=== PATIENT | male | born 1955 | race Caucasian/White ===

== ENCOUNTER 2016-03-03 07:54 | Inpatient (IN) | payer OTHER ==
[2016-03-03] MEDS ORDERED: ASPIRIN 81 MG CHEW PO STA (08:06)
[2016-03-03] MEDS ORDERED: NITROGLYCERIN SL TABS 0.4 MG TAB SUBLINGUAL STA ×3 (08:06)
[2016-03-03] MEDS ORDERED: HEPARIN SODIUM,PORCINE 5,000 UNIT/ML 1 ML VIAL IV STA (08:06)
[2016-03-03] MEDS ORDERED: SODIUM CHLORIDE 0.9% 1,000 ML IV STA (08:06)
[2016-03-03] MEDS ORDERED: LIDOCAINE 2% INJ 20 MG/ML (20 ML MDV) ONE (08:07)
--- NOTE | 2016-03-03 08:12 | ED ---
General Adult HPI - General Chief complaint: Chest Pain Stated complaint: chest pain, sob Time Seen by Provider: 03/03/16 08:00 Source: patient, RN notes reviewed Mode of arrival: ambulatory Limitations: no limitations - History of Present Illness Initial comments: Patient is a pleasant 61-year-old male presenting to the emergency department complaining of chest discomfort. Discomfort feels like pressure or ache. There is radiation to both of the shoulders. Onset of symptoms was just 30 minutes ago. Discomfort is severe however starting to improve, radiate/10. Patient does have some associated dyspnea. Patient was nauseated earlier. Patient felt sweaty earlier. No history of similar symptoms previously. No leg pain or swelling. No cough or fever. - Related Data Home Medications Medication Instructions Recorded Confirmed No Known Home Medications [No 03/03/16 03/03/16 Known Home Medications] Allergies Allergy/AdvReac Type Severity Reaction Status Date / Time No Known Allergies Allergy Verified 03/03/16 08:13 Review of Systems ROS Statement: Those systems with pertinent positive or pertinent negative responses have been documented in the HPI. ROS Other: All systems not noted in ROS Statement are negative. Constitutional: Denies: fever Eyes: Denies: eye pain ENT: Denies: ear pain Respiratory: Reports: dyspnea. Denies: cough Cardiovascular: Reports: chest pain Endocrine: Denies: fatigue Gastrointestinal: Reports: nausea. Denies: abdominal pain Genitourinary: Denies: dysuria Musculoskeletal: Denies: back pain Skin: Denies: rash Neurological: Denies: headache Past Medical History Past Medical History: No Reported History History of Any Multi-Drug Resistant Organisms: None Reported Past Surgical History: Orthopedic Surgery Additional Past Surgical History / Comment(s): left knee Past Psychological History: No Psychological Hx Reported Smoking Status: Current every day smoker Past Alcohol Use History: Daily Past Drug Use History: None Reported General Exam Limitations: no limitations General appearance: alert, in distress (Patient does appear uncomfortable) Head exam: Present: atraumatic, normocephalic Eye exam: Present: normal appearance, PERRL ENT exam: Present: normal oropharynx Neck exam: Present: normal inspection Respiratory exam: Present: normal lung sounds bilaterally. Absent: chest wall tenderness Cardiovascular Exam: Present: regular rate, normal rhythm Expanded Peripheral pulses: 2+: Radial (R), Radial (L), Posterior Tibialis (R), Posterior Tibialis (L) GI/Abdominal exam: Present: soft. Absent: tenderness Extremities exam: Present: normal inspection. Absent: pedal edema, calf tenderness Neurological exam: Present: alert Psychiatric exam: Present: normal affect, normal mood Skin exam: Absent: rash Course Vital Signs 03/03/16 08:00 Temperature 96.1 F L Pulse Rate 91 Respiratory 18 Rate Blood Pressure 152/94 - Reevaluation(s) Reevaluation #1: 03/03/16 08:09 Dr. Salmeron in the emergency department and taking patient to the [facility]. 03/03/16 08:12 STEMI alert was previously called. Case was earlier discussed with Dr. Sanders. Dr. Ziegler also paged for admission for hospital call. 03/03/16 08:25 Case was discussed with Dr. Silva, who will admit for hospital call. EKG Findings - EKG Comments: EKG Findings:: Normal sinus rhythm 98. Normal intervals. Normal axis. Normal QRS. ST elevation leads V2 through V6. Medical Decision Making - Lab Data Result diagrams: 03/03/16 08:04 Lab Results 03/03/16 Range/Units 08:04 WBC 11.2 H (3.8-10.6) k/uL RBC 4.74 (4.30-5.90) m/uL Hgb 15.2 (13.0-17.5) gm/dL Hct 44.5 (39.0-53.0) % MCV 93.9 (80.0-100.0) fL MCH 32.0 (25.0-35.0) pg MCHC 34.1 (31.0-37.0) g/dL RDW 12.4 (11.5-15.5) % Plt Count 350 (150-450) k/uL - Radiology Data Radiology results: image reviewed (Chest x-ray shows no acute process.) Disposition Clinical Impression: ST elevation myocardial infarction (STEMI) Disposition: [facility] Condition: Serious Referrals: None,Stated [Primary Care Provider] - 1-2 days
[2016-03-03] MEDS ORDERED: HEPARIN SODIUM,PORCINE 5,000 UNIT/ML 1 ML VIAL IV PRN (08:13)
[2016-03-03] MEDS ORDERED: NITROGLYCERIN SL TABS 0.4 MG TAB SUBLINGUAL PRN ×2 (08:13→09:03)
[2016-03-03] MEDS ORDERED: MIDAZOLAM 2 MG/2 ML VIAL ONE (08:14)
[2016-03-03 08:15] LABS: CH 32.5; CHCM 34.7; HCT 44.5 % (39.0-53.0); HDW 2.51; HGB 15.2 gm/dL (13.0-17.5); MCHC 34.1 g/dL (31.0-37.0); MCV 93.9 fL (80.0-100.0); Mean Platelet Volume 6.8; RBC 4.74 m/uL (4.30-5.90); RDW 12.4 % (11.5-15.5); WBC 11.2 k/uL (3.8-10.6)
[2016-03-03] MEDS ORDERED: IV FLUID CONTINUATION 1,000 ML IV ONE (08:15)
--- NOTE | 2016-03-03 08:22 | XR ---
EXAMINATION TYPE: XR chest 1V portable DATE OF EXAM: 03/03/2016 8:13 AM HISTORY: Chest pain. REFERENCE: NONE. FINDINGS: The lungs are clear. Pleural spaces are clear. Heart size is upper limits of normal. IMPRESSION: BORDERLINE CARDIOMEGALY.
[2016-03-03 08:24] LABS: ALT 35 U/L (21-72); AST 26 U/L (17-59); Alkaline Phosphatase 66 U/L (38-126); Anion Gap 13 mmol/L; Blood Urea Nitrogen 16 mg/dL (9-20); Calcium 9.9 mg/dL (8.4-10.2); Carbon Dioxide 23 mmol/L (22-30); Chloride 107 mmol/L (98-107); Glucose 152 mg/dL (74-99); Non-African American GFR(MDRD) >60 (>60 ml/min/1.73 sqM); Potassium 4.1 mmol/L (3.5-5.1); Sodium 143 mmol/L (137-145); Total Bilirubin 0.7 mg/dL (0.2-1.3); Total Protein 7.6 g/dL (6.3-8.2)
[2016-03-03] MEDS ORDERED: MIDAZOLAM 2 MG/2 ML VIAL IV ONE (08:25)
[2016-03-03] MEDS ORDERED: LIDOCAINE 2% INJ 20 MG/ML SQ ONE (08:26)
[2016-03-03] MEDS ORDERED: BIVALIRUDIN BOLUS 250 MG/50 ML IV ONE (08:31)
[2016-03-03] MEDS ORDERED: BIVALIRUDIN 250 MG in SODIUM CHLORIDE 0.9% 50 ML IV ONE (08:32)
[2016-03-03 08:34] LABS: Creatine Kinase <20 U/L (55-170)
[2016-03-03] MEDS ORDERED: SODIUM CHLORIDE 0.9% (PF) 10 ML VIAL ONE (08:37)
[2016-03-03] MEDS ORDERED: niCARdipine 25 MG/10 ML VIAL ONE (08:38)
[2016-03-03 08:39] LABS: Partial Thromboplastin Time 25.3 sec (22.0-30.0); Prothrombin Time 10.3 sec (9.0-12.0)
[2016-03-03] MEDS: NITROGLYCERIN 1000MCG/10ML SYRINGE INTRACORON ONE ×2 (08:42→08:49)
[2016-03-03] MEDS ORDERED: PRASUGREL 10 MG TAB ONE (08:45)
[2016-03-03 08:47] LABS: Creatine Kinase MB <0.2 ng/mL (0.0-2.4)
[2016-03-03] MEDS ORDERED: PRASUGREL 10 MG TAB PO ONE (08:48)
[2016-03-03] MEDS ORDERED: niCARdipine 25 MG/10 ML VIAL INTRACORON ONE (08:49)
[2016-03-03 08:50] LABS: Troponin I 0.044 ng/mL (0.000-0.034)
[2016-03-03] MEDS ORDERED: IOHEXOL 350 MG/ML 100 ML BOTTLE INJ ONE (09:02)
[2016-03-03] MEDS ORDERED: RX INFO: IV CONTRAST WAS GIVEN 1 EACH MISC MISCELLANE PRN (09:03)
[2016-03-03] MEDS ORDERED: MAG HYDROX/AL HYDROX/SIMETH 30 ML CUP PO PRN (09:03)
--- NOTE | 2016-03-03 09:03 | P.CRDCN ---
History of Present Illness Consult date: 03/03/16 History of present illness: This is a pleasant 61-year-old gentleman with no significant past medical history but significant history of smoking presented to the emergency room complaining of chest discomfort. He was in his usual state of health until this morning when he woke up complaining of pressure across the chest. It is associated with shortness of breath. The EKG showed sinus rhythm with ST segment elevation in the anterolateral leads. The patient is not aware of any prior history of CAD, diabetes, hypertension, or dyslipidemia. He has no major cardiovascular surgery before. He has significant history of smoking. He has no family history of coronary artery disease. The decision was made toward emergent heart catheterization with possible percutaneous coronary intervention. The procedure in details was explained to the patient with full understanding. Past Medical History Past Medical History: No Reported History History of Any Multi-Drug Resistant Organisms: None Reported Past Surgical History: Orthopedic Surgery Additional Past Surgical History / Comment(s): left knee Past Psychological History: No Psychological Hx Reported Smoking Status: Current every day smoker Past Alcohol Use History: Daily Past Drug Use History: None Reported Medications and Allergies Home Medications Medication Instructions Recorded Confirmed Type No Known Home Medications [No 03/03/16 03/03/16 History Known Home Medications] Allergies Allergy/AdvReac Type Severity Reaction Status Date / Time No Known Allergies Allergy Verified 03/03/16 08:13 Physical Exam Vitals: Vital Signs Temp Pulse Resp BP 03/03/16 08:00 96.1 F L 91 18 152/94 Intake and Output 03/02/16 03/03/16 03/03/16 22:59 06:59 14:59 Other: Weight 74.843 kg Patient Weight 03/04/16 06:59 Weight 74.843 kg - Constitutional General appearance: mild distress - Respiratory Respiratory: bilateral: CTA - Cardiovascular Rhythm: regular Heart sounds: normal: S1, S2 Results 03/03/16 08:04 03/03/16 08:04 CBC 03/03/16 Range/Units 08:04 WBC 11.2 H (3.8-10.6) k/uL RBC 4.74 (4.30-5.90) m/uL Hgb 15.2 (13.0-17.5) gm/dL Hct 44.5 (39.0-53.0) % Plt Count 350 (150-450) k/uL Current Medications Generic Name Dose Route Start Last Admin Trade Name Wyattq PRN Reason Stop Dose Admin Aspirin 325 mg 03/04/16 09:00 Aspirin PO DAILY [facility] Heparin Sodium (Porcine) 0 unit 03/03/16 08:13 Heparin IV Q6HR PRN Low PTT Protocol Sodium Chloride 1,000 mls @ 75 mls/hr 03/03/16 08:06 03/03/16 08:13 Saline 0.9% IV 03/03/16 21:25 75 mls/hr .[id number] STA Administration Heparin Sodium/Dextrose 25,000 500 mls @ 17.96 mls/hr 03/03/16 08:15 unit/ IV Solution IV .Q24H BINA Protocol 12 UNITS/KG/HR Nitroglycerin 1 inch 03/03/16 12:00 Nitro-Bid Oint TOPICAL Q6HR [facility] Nitroglycerin 0.4 mg 03/03/16 08:13 Nitrostat SUBLINGUAL Q5M PRN Chest Pain Intake and Output 03/02/16 03/03/16 03/03/16 22:59 06:59 14:59 Other: Weight 74.843 kg Patient Weight 03/04/16 06:59 Weight 74.843 kg 03/03/16 08:04 Assessment and Plan Plan: Assessment #[address] elevation myocardial infarction #2 significant history of smoking Plan #1 proceeding with emergent heart catheterization #2 follow-up with the patient
[2016-03-03] MEDS: LISINOPRIL 2.5 MG TAB PO SCH (09:43)
[2016-03-03] MEDS ORDERED: LISINOPRIL 2.5 MG TAB PO SCH (09:44)
--- NOTE | 2016-03-03 11:59 | ECHOF ---
Referral Reason:stemi MEASUREMENTS -------- HEIGHT: 172.7 cm WEIGHT: 74.8 kg BP: 152/94 IVSd: 0.8 cm (0.6 - 1.1) LVIDd: 5.0 cm (3.9 - 5.3) LVPWd: 0.9 cm (0.6 - 1.1) IVSs: 1.4 cm LVIDs: 3.8 cm LVPWs: 1.1 cm Ao Diam: 3.1 cm (2.0 - 3.7) AV Cusp: 1.9 cm (1.5 - 2.6) LA Diam: 3.6 cm (2.7 - 3.8) MV EXCURSION: 12.495 mm (> 18.000) MV EF SLOPE: 60 mm/s (70 - 150) EPSS: 1.1 cm MV E Chris: 0.57 m/s MV DecT: 233 ms MV A Chris: 0.98 m/s MV E/A Ratio: 0.58 RAP: 5.00 mmHg RVSP: 23.00 mmHg FINDINGS -------- Sinus rhythm. This was a technically adequate study. Left ventricular wall thickness is normal. Overall left ventricular systolic function is moderately impaired with, an EF between 35 - 40 %. Anterior is hypokinetic Septal Hypokinesis [place] Hypokinesis. The right ventricle is normal in size and function. The left atrium is normal in size. The right atrium is normal in size. The aortic valve is trileaflet, and appears structurally normal. No aortic stenosis or regurgitation. There is trace mitral regurgitation. Mild tricuspid regurgitation present. The right ventricular systolic pressure, as measured by Doppler, is 23.00mmHg. Pulmonic valve appears structurally normal. The aortic root size is normal. The pericardium is normal. CONCLUSIONS -------- 1. Sinus rhythm. 2. The right atrium is normal in size. 3. The aortic valve is trileaflet, and appears structurally normal. No aortic stenosis or regurgitation. 4. There is trace mitral regurgitation. 5. Mild tricuspid regurgitation present. 6. The right ventricular systolic pressure, as measured by Doppler, is 23.00mmHg. 7. Pulmonic valve appears structurally normal. 8. The aortic root size is normal. 9. The pericardium is normal. 10. This was a technically adequate study. 11. Left ventricular wall thickness is normal. 12. Overall left ventricular systolic function is moderately impaired with, an EF between 35 - 40 %. 13. Anterior is hypokinetic 14. Septal Hypokinesis 15. [place] Hypokinesis. 16. The right ventricle is normal in size and function. 17. The left atrium is normal in size. TRANSMISSION ASSEMBLER: Leilani Brush RDCS
[2016-03-03] MEDS ORDERED: NITROGLYCERIN OINT 1 INCH/GM PACKET TOPICAL SCH (12:00)
[2016-03-03 13:21] LABS: Glucose,Whole Blood 109 mg/dL (75-99)
[2016-03-03] MEDS: HEPARIN SODIUM,PORCINE/D5W PMX 25,000 UNIT in DEXTROSE/WATER 1 500ML.BAG IV SCH (13:37)
[2016-03-03 15:39] LABS: Creatine Kinase <20 U/L (55-170)
[2016-03-03 15:51] LABS: Creatine Kinase MB 0.6 ng/mL (0.0-2.4)
[2016-03-03] MEDS: NITROGLYCERIN OINT 1 INCH/GM PACKET TOPICAL SCH ×3 (17:03→23:17)
[2016-03-03] MEDS: ATORVASTATIN 80 MG TAB PO SCH (20:18)
[2016-03-03] MEDS: METOPROLOL TARTRATE 12.5 MG TAB PO SCH (20:19)
[2016-03-03 21:41] LABS: Creatine Kinase <20 U/L (55-170)
[2016-03-03 21:54] LABS: Creatine Kinase MB <0.2 ng/mL (0.0-2.4)
[2016-03-04] MEDS: NITROGLYCERIN OINT 1 INCH/GM PACKET TOPICAL SCH (05:01)
[2016-03-04 05:22] LABS: Basophils # (A) 0.1 k/uL (0-0.2); Basophils % (A) 1 %; CH 32.5; CHCM 35.1; Eosinophils # (A) 0.1 k/uL (0-0.7); Eosinophils % (A) 2 %; HCT 42.5 % (39.0-53.0); HDW 2.51; HGB 14.1 gm/dL (13.0-17.5); Luc # (Auto) 0.14; Luc % (Auto) 2; Lymphocytes # (A) 1.7 k/uL (1.0-4.8); Lymphocytes % (A) 20 %; MCHC 33.3 g/dL (31.0-37.0); MCV 93.1 fL (80.0-100.0); Mean Platelet Volume 7.4; Monocytes # (A) 0.8 k/uL (0-1.0); Monocytes % (A) 10 %; Neutrophils # (A) 5.7 k/uL (1.3-7.7); Neutrophils % (A) 67 %; RBC 4.57 m/uL (4.30-5.90); RDW 12.4 % (11.5-15.5); WBC 8.6 k/uL (3.8-10.6); WBC (Perox) 9.06
[2016-03-04 05:30] LABS: Anion Gap 10 mmol/L; Blood Urea Nitrogen 12 mg/dL (9-20); Calcium 9.2 mg/dL (8.4-10.2); Carbon Dioxide 20 mmol/L (22-30); Chloride 108 mmol/L (98-107); Cholesterol 215 mg/dL (<200); Glucose 114 mg/dL (74-99); HDL Cholesterol 45 mg/dL (40-60); Magnesium 1.9 mg/dL (1.6-2.3); Non-African American GFR(MDRD) >60 (>60 ml/min/1.73 sqM); Phosphorous 3.6 mg/dL (2.5-4.5); Potassium 4.3 mmol/L (3.5-5.1); Sodium 138 mmol/L (137-145); Triglycerides 114 mg/dL (<150)
[2016-03-04] MEDS: HEPARIN SODIUM,PORCINE/D5W PMX 25,000 UNIT in DEXTROSE/WATER 1 500ML.BAG IV SCH (08:15)
[2016-03-04] MEDS: ASPIRIN 325 MG TAB PO SCH (08:16)
[2016-03-04] MEDS: PRASUGREL 10 MG TAB PO SCH (08:16)
[2016-03-04] MEDS: LISINOPRIL 2.5 MG TAB PO SCH (08:16)
[2016-03-04] MEDS: METOPROLOL TARTRATE 12.5 MG TAB PO SCH (08:16)
[2016-03-04] MEDS ORDERED: LISINOPRIL 2.5 MG TAB PO SCH (09:00)
[2016-03-04] MEDS ORDERED: ASPIRIN 325 MG TAB PO SCH (09:00)
--- NOTE | 2016-03-04 10:35 | CC ---
DATE OF SERVICE: 03/03/2016 PERFORMING PHYSICIAN: Sandeep Salmeron MD, hand packager. PROCEDURE PERFORMED: 1. Selective right and left coronary angiogram. 2. Successful stenting of the proximal left anterior descending artery using 4.0 x 23 mm Xience SUEDEP with a good angiographic result. INDICATION: This is a pleasant 61-year-old gentleman with no significant past medical history but significant history of smoking who presented to the emergency room complaining of chest discomfort and the EKG showed sinus rhythm with acute anterolateral ST segment elevation. The decision was made toward emergent heart catheterization. APPROACH: Right common femoral artery. COMPLICATIONS: None. LEVEL OF SEDATION: Moderate. PROCEDURE DESCRIPTION: After obtaining an informed consent, the patient was brought to the cardiac mushroom laborer emergently. Right common femoral artery was cannulated using micropuncture technique. The micropuncture wire passed easily, then I placed 6-[place] sheath in the right common femoral artery. Subsequently, I did selective right and left coronary angiogram using JR4 and JL4 catheters. After that, I did intervene on left anterior descending artery. Please see a separate paragraph for that. SELECTIVE CORONARY ANGIOGRAM: 1. Left main is a large-caliber vessel. It is angiographically normal. It bifurcates into the left circumflex and left anterior descending artery. 2. The left circumflex is a large-caliber vessel and it is a nondominant vessel. The proximal left circumflex is angiographically normal and gives rise to the first and second OM branches and both appeared to be angiographically normal. The mid left circumflex has mild disease only. The left circumflex distally appeared to be angiographically normal. 3. The left anterior descending artery, the proximal left anterior descending artery appeared to have severe lesion seems to be in the range of 90% with plaque rupture and thrombus formation. The LAD in the proximal portion gives rise into the first diagonal branch, which appeared to be angiographically normally. The mid LAD is angiographically normal and the LAD distally is angiographically normal. 4. The right coronary artery is a large-caliber vessel and it is a dominant vessel. The proximal right coronary artery appeared to be angiographically normally be. The mid RCA appeared to have mild disease only. The RCA distally appeared to have haziness, which likely represents thrombus formation. The RCA distally bifurcates into PDA and PLV branches; both are angiographically normal. PCI OF THE LAD: Anticoagulation was initiated using Angiomax. Subsequently, I took a run-through wire and the LAD was wired. After that, I did multiple runs of aspiration thrombectomy from the LAD. Subsequently, I did PTCA ballooning of the LAD using ( ) x 12 mm balloon. Then I did deploy 4.0 x 23 mm Xience SUDEEP, where the stent was positioned under fluoroscopy guidance, then it was deployed under its nominal pressure for 30 seconds. The following angiogram showed excellent angiographic results without complication. CONCLUSION: 1. Acute anterolateral ST segment elevation myocardial infarction. 2. Critical disease involving the proximal left anterior descending artery with a plaque rupture and thrombus formation. 3. Successful stenting of the proximal left anterior descending artery using 4.0 x 23 mm Xience SUDEEP with a good angiographic result. 4. Haziness involving the distal right coronary artery without any discrete lesion and with JALEEL-3 flow in the right coronary artery. Possible thrombus present there. Postprocedure management will be: 1. Dual antiplatelet therapy. 2. Risk factor modification. 3. Follow up with the patient.
[2016-03-04] MEDS ORDERED: METOPROLOL SUCCINATE (ER) 50 MG TAB.ER.24H PO SCH (15:00)
--- NOTE | 2016-03-04 18:29 | PN ---
Mr. Perdomo is doing well from cardiac standpoint. He is pacing in his room. He has no dizziness, lightheadedness. No chest discomfort. He was admitted with an acute AL and his left ventricular ejection fraction was 35% to 40%. No nonsustained ventricular tachycardia, noted. His vitals are stable. He is pain free. No shortness of breath. No breathing trouble. Temperature is 97.2 degrees Fahrenheit, ( ) respirations 18, blood pressure is 109/68 mm of mercury. IMPRESSION: 1. Anterior wall myocardial infarction. 2. History of smoking. 3. Status post coronary stenting. PLAN: Switch to long-acting metoprolol, continue statins, continue Effient, continue aspirin. Continue atorvastatin and reduce to ( ) 2.5 mg daily and add Spironolactone.
[2016-03-04] MEDS ORDERED: TEMAZEPAM 15 MG CAP PO PRN (18:38)
[2016-03-04] MEDS ORDERED: ALPRAZolam 0.25 MG TAB PO PRN (18:38)
[2016-03-04] MEDS ORDERED: HYDROcodone/APAP 5-325MG 1 EACH TAB PO PRN (18:38)
[2016-03-04] MEDS: SPIRONOLACTONE 25 MG TAB PO SCH (18:48)
[2016-03-04] MEDS: NICOTINE 14MG/24HR PATCH TRANSDERM SCH (18:50)
[2016-03-04] MEDS: ATORVASTATIN 80 MG TAB PO SCH (21:51)
[2016-03-05 05:31] LABS: Basophils % (A) 1 %; CH 32.4; CHCM 34.6; Eosinophils # (A) 0.2 k/uL (0-0.7); Eosinophils % (A) 3 %; HCT 43.1 % (39.0-53.0); HDW 2.45; HGB 14.3 gm/dL (13.0-17.5); Luc # (Auto) 0.17; Luc % (Auto) 2; Lymphocytes # (A) 1.9 k/uL (1.0-4.8); Lymphocytes % (A) 24 %; MCH 31.2 pg (25.0-35.0); MCHC 33.3 g/dL (31.0-37.0); MCV 93.9 fL (80.0-100.0); Mean Platelet Volume 6.9; Monocytes # (A) 0.6 k/uL (0-1.0); Monocytes % (A) 8 %; Neutrophils # (A) 4.8 k/uL (1.3-7.7); Neutrophils % (A) 62 %; RBC 4.59 m/uL (4.30-5.90); RDW 12.4 % (11.5-15.5); WBC 7.7 k/uL (3.8-10.6); WBC (Perox) 7.91
[2016-03-05 05:38] LABS: Anion Gap 8 mmol/L; Blood Urea Nitrogen 16 mg/dL (9-20); Calcium 9.3 mg/dL (8.4-10.2); Carbon Dioxide 23 mmol/L (22-30); Chloride 109 mmol/L (98-107); Glucose 105 mg/dL (74-99); Non-African American GFR(MDRD) >60 (>60 ml/min/1.73 sqM); Potassium 4.3 mmol/L (3.5-5.1); Sodium 140 mmol/L (137-145)
[2016-03-05] MEDS: NICOTINE 14MG/24HR PATCH TRANSDERM SCH (09:15)
[2016-03-05] MEDS: PANTOPRAZOLE 40 MG TABLET PO SCH (09:16)
[2016-03-05] MEDS: ASPIRIN 325 MG TAB PO SCH (09:16)
[2016-03-05] MEDS: SPIRONOLACTONE 25 MG TAB PO SCH (09:17)
[2016-03-05] MEDS: LISINOPRIL 2.5 MG TAB PO SCH (09:17)
[2016-03-05] MEDS: PRASUGREL 10 MG TAB PO SCH (09:17)
[2016-03-05] MEDS: METOPROLOL SUCCINATE (ER) 25 MG TAB.ER.24H PO SCH (09:17)
--- NOTE | 2016-03-05 11:02 | HP ---
DATE OF ADMISSION: CHIEF COMPLAINT: Chest pain. HISTORY OF PRESENT ILLNESS: This 61-year-old gentleman with a past medical history of multiple medical issues including orthopedic surgery, tonsillectomy previously, remotely followed by Dr. Bolton in the outpatient setting, was admitted with sudden onset of severe anterior and left-sided chest pain to [facility]. The pain is radiating to both shoulders. The pain is 10 out of 10 in intensity. The patient is complaining of some associated shortness of breath. The patient felt earlier. Patient came to [facility] and found to have acute ST segment elevation anterior myocardial infarction. The patient underwent a cardiac catheterization by Dr. Salmeron. Cardiac catheterization showed critical disease involving the proximal left anterior descending with plaque rupture and thrombus formation and sepsis with stenting of the proximal left anterior descending using Xience drug-eluting stent with good angiographic results noted. Antiplatelet treatment was instituted. 2-D echo with Doppler was done, which showed ejection fraction of about 30 to 40% with wall hypokinesis indicating diminished ejection fraction also. There is no history of any fever, rigors. No history of headache, loss of consciousness or seizures. PAST MEDICAL HISTORY: History of degenerative joint disease, history of tonsillectomy. MEDICATIONS PRIOR TO ADMISSION: None. ALLERGIES: None. FAMILY HISTORY: History of renal failure in the family, in dad. SOCIAL HISTORY: History of smoking, occasional alcohol intake. REVIEW OF SYSTEMS: ENT: No dimension hearing or vision. CARDIOVASCULAR: As mentioned earlier. RESPIRATORY: As mentioned earlier. GI: No nausea. : No dysuria. NERVOUS SYSTEM: No numbness or weakness. ALLERGY/IMMUNOLOGY: No asthma. MUSCULOSKELETAL: As mentioned earlier. RHEUMATOLOGY: Negative. PSYCHIATRY: Negative. ENDOCRINE: No history of diabetes or hypothyroidism. CONSTITUTIONAL: As mentioned earlier. NEUROLOGY: Negative. PHYSICAL EXAMINATION: Patient is alert and oriented x3. Pulse is 98, blood pressure 109/68, respiration 18, temperature 97.2, pulse ox 98% on room air. HEENT: Conjunctivae normal. NECK: No jugular venous distention. CARDIOVASCULAR: S1 and S2, muffled. No S3, no S4. RESPIRATORY: Breath sounds diminished at the bases. No rhonchi, no crackles. ABDOMEN: Soft, nontender. No mass palpable. No organomegaly. No ascites. LEGS: No edema, no swelling. NERVOUS SYSTEM: Higher function as mentioned. Moves all four limbs. No focal motor deficits. LYMPHATIC: No lymphadenopathy in the neck, axillae or groin. SKIN: No ulcer, rash or bleeding. LABS: WBC 11.2, glucose 152, troponin 5.810. Cholesterol 215 and LDL is 147. ASSESSMENT: 1. Chest pain with acute ST segment elevation anterior wall myocardial infarction with critical stenosis of left anterior descending, status post stent placement. 2. Troponin 5.810. 3. History of nicotine dependence. 4. Hyperlipidemia. 5. Increased random blood sugar. 6. Increased WBC, possibly reactive. 7. History of degenerative joint disease. 8. FULL CODE. 9. Congestive heart failure with acute systolic dysfunction, ejection fraction 35 to 40% with multiple wall hypokinesis in the 2-D echo. RECOMMENDATIONS AND DISCUSSION: In this 61-year-old gentleman who presented with multiple complex medical issues, we will monitor the patient closely. Continue the current medications, continue symptomatic treatment. Otherwise I recommend dual antiplatelet treatment along with Cardiology, atorvastatin. Otherwise postop PTCA protocol. Repeat labs. Aldactone also has been recommended. Continue to monitor. Guarded prognosis because of multiple complex medical issues. Further recommendations to follow. MTDD
--- NOTE | 2016-03-05 18:13 | P.PN ---
Subjective Patient is doing well from a cardiac standpoint. He denies any chest discomfort , no undue shortness of breath no dizziness lightheadedness Review of systems: No fever chills or rigors, no cough, phlegm or expectoration , no nausea, vomiting or diarrhea, no hematuria, dysuria, no musculoskeletal complaints, no strokes or seizures, no skin lesions. On examination Afebrile 97.7, pulse rate in the 60s, respirations normal, blood pressure 109/ 77 mmHg And neck examination is normal No JVD thyromegaly or carotid bruits Heart sounds some stool normal No murmurs or gallops no rub Breath sounds are normal and equal No rhonchi no crackles Abdomen soft nontender Extremities warm no edema Impression Acute ST elevation [place], anterolateral History of smoking Gap to ejection fraction 35-40% Anterior septal and apical hypokinesis Ischemic cardio myopathy Suggest Spironolactone 25 mg daily Aspirin and Effient Continue atorvastatin Lisinopril Metoprolol maximized today to 75 mg a day. I will try to increase to 100 mg daily This gentleman has moderately severe ischemic cardio myopathy If his LV function does not improve in the next 3 months he should undergo risk stratification for sudden cardiac Follow-up 24-hour Holter monitor to look for any nonsustained ventricular tachycardia Follow-up 2-D echo in the future Objective - Vital Signs Vital signs: Vital Signs Temp 97.7 F 03/05/16 16:00 Pulse 62 03/05/16 16:00 Resp 15 03/05/16 16:00 BP 109/77 03/05/16 16:00 Pulse Ox 98 03/05/16 16:00 Intake & Output 03/04/16 03/05/16 03/05/16 18:59 06:59 18:59 Intake Total 720 720 Output Total 0 0 Balance 720 720 Weight 72 kg 72 kg Intake: IV 0 Sodium Chloride 0.9% 1, 0 000 ml @ 75 mls/hr IV . [id number] STA Rx#:[id number] Oral 720 720 Output: Urine 0 0 Other: Voiding Method Toilet Toilet Toilet Urinal Urinal Urinal # Voids 2 2 2 - Labs CBC & Chem 7: 03/05/16 04:56 03/05/16 04:56 Labs: Abnormal Lab Results - Last 24 Hours (Table) 03/05/16 Range/Units 04:56 Chloride 109 H (98-107) mmol/L Glucose 105 H (74-99) mg/dL
--- NOTE | 2016-03-05 19:05 | PN ---
DATE OF SERVICE: 03/05/2016 This 61-year-old gentleman who was admitted with chest pain, acute ST segment elevation myocardial infarction being closely monitored at this time. The patient has reduced ejection fraction indicating wall motion abnormalities. Cardiology is following the patient closely. The patient is on beta blockers, ARMANDO inhibitors and dual antiplatelet treatment also. No chest pain. No palpitation. No fever. Able to ambulate. On exam, with alert and oriented x3. Pulse 71, blood pressure 140/80, respirations 15, temperature 97.7, pulse ox 98% on room air. HEENT: Conjunctivae normal. Oral mucosa moist. NECK: No jugular venous distention. No carotid bruits. No lymph node enlargement. CARDIOVASCULAR: S1 and S2, muffled. No S3, no S4. RESPIRATORY: Breath sounds diminished at the bases. No rhonchi, no crackles. ABDOMEN: Soft, nontender, no mass palpable. LEGS: No edema. NERVOUS SYSTEM: No focal deficits. LABS: CBC within normal limits. Glucose 105. Troponin is not 147. ASSESSMENT: 1. Chest pain with acute ST segment elevation anterior wall myocardial infarction with critical stenosis of the left anterior descending, status post stenting. 2. Troponin 5.810. 3. History of nicotine dependence. 4. Hyperlipidemia. 5. Increased random blood sugar. 6. Increased WBC, possibly reactive. 7. History of degenerative joint disease. 8. History of congestive heart failure with acute systolic dysfunction, ejection fraction 30 to 40% with multiple wall hypokinesis in the 2-D echo. 9. FULL CODE. RECOMMENDATIONS AND DISCUSSION: In this 61-year-old gentleman who presented with multiple complex medical issues, we will monitor the patient closely. Continue the current medications and symptomatic treatment. Will continue with dual antiplatelet treatment. Continue with Lipitor. Monitor fluid and electrolyte balance closely. Further recommendations to follow. MTDD
[2016-03-05] MEDS: ATORVASTATIN 80 MG TAB PO SCH (22:08)
[2016-03-06 05:09] LABS: Basophils # (A) 0.1 k/uL (0-0.2); Basophils % (A) 1 %; CH 32.4; CHCM 34.9; Eosinophils # (A) 0.2 k/uL (0-0.7); Eosinophils % (A) 3 %; HCT 43.6 % (39.0-53.0); HDW 2.49; HGB 14.5 gm/dL (13.0-17.5); Luc # (Auto) 0.13; Luc % (Auto) 2; Lymphocytes # (A) 2.2 k/uL (1.0-4.8); Lymphocytes % (A) 27 %; MCH 30.9 pg (25.0-35.0); MCHC 33.1 g/dL (31.0-37.0); MCV 93.3 fL (80.0-100.0); Mean Platelet Volume 7.4; Monocytes # (A) 0.8 k/uL (0-1.0); Monocytes % (A) 9 %; Neutrophils # (A) 4.8 k/uL (1.3-7.7); Neutrophils % (A) 59 %; RBC 4.68 m/uL (4.30-5.90); RDW 12.2 % (11.5-15.5); WBC 8.2 k/uL (3.8-10.6); WBC (Perox) 8.06
[2016-03-06 05:19] LABS: Anion Gap 12 mmol/L; Blood Urea Nitrogen 16 mg/dL (9-20); Calcium 9.6 mg/dL (8.4-10.2); Carbon Dioxide 21 mmol/L (22-30); Chloride 108 mmol/L (98-107); Glucose 106 mg/dL (74-99); Non-African American GFR(MDRD) >60 (>60 ml/min/1.73 sqM); Potassium 4.4 mmol/L (3.5-5.1); Sodium 141 mmol/L (137-145)
[2016-03-06 05:55] LABS: Magnesium 1.9 mg/dL (1.6-2.3); Phosphorous 4.1 mg/dL (2.5-4.5)
[2016-03-06] MEDS: LISINOPRIL 2.5 MG TAB PO SCH (09:09)
[2016-03-06] MEDS: ASPIRIN 325 MG TAB PO SCH (09:09)
[2016-03-06] MEDS: PRASUGREL 10 MG TAB PO SCH (09:09)
[2016-03-06] MEDS: SPIRONOLACTONE 25 MG TAB PO SCH (09:10)
[2016-03-06] MEDS: PANTOPRAZOLE 40 MG TABLET PO SCH (09:11)
[2016-03-06] MEDS: METOPROLOL SUCCINATE (ER) 25 MG TAB.ER.24H PO SCH (09:12)
[2016-03-06 09:14] VITALS: BP 133/83; PULSE 83; RESP 16; TEMP 97.3
[2016-03-06] MEDS: NICOTINE 14MG/24HR PATCH TRANSDERM SCH (09:15)
[2016-03-06] MEDS: MAGNESIUM SULFATE-D5W PMX 1 GM in DEXTROSE/WATER 1 100ML.BAG IVPB SCH ×2 (09:24→09:25)
--- NOTE | 2016-03-06 09:45 | PN ---
Mr. Perdomo is doing well. He has been stable. He has no palpitations. No chest pain. No breathing trouble. He is ambulating in his room. On examination, he is afebrile, 97.3. His blood pressure is 133/83 mmHg. Respirations are 16. Head and neck examination is normal. Heart sounds are normal. No murmurs, no gallops. LUNGS: Clear on auscultation. EXTREMITIES: Heart sounds are normal. Breath sounds are normal. No murmurs, no gallops. No rhonchi. Abdomen is soft, nontender. EXTREMITIES: Warm. No edema. IMPRESSION: 1. Anterior wall myocardial infarction, status post drug eluting stenting to the LAD with an excellent result. 2. Ischemic cardiomyopathy left ventricular ejection fraction of 35% to 40% by 2-D echo. No clinical heart failure symptoms at this time. SUGGEST: Patient may go home today. His home medications include: 1. Aspirin 325 mg daily. 2. Atorvastatin 80 mg q.h.s. 3. Lisinopril 2.5 mg p.o. daily. 4. Metoprolol succinate 100 mg daily. 5. Effient 10 mg p.o. daily. 6. Spironolactone. He will see Dr. Salmeron within 5 to 7 days.
--- NOTE | 2016-03-07 11:03 | DS ---
DATE OF ADMISSION: 03/03/2016 DATE OF DISCHARGE: 03/06/2016 DATE OF SERVICE: 03/06/2016 FINAL DIAGNOSES: 1. Chest pain with acute ST segment elevation anterior wall myocardial infarction with critical stenosis of the left anterior descending artery, status post stenting. 2. Troponin 5.810. 3. History of nicotine dependence. 4. Hyperlipidemia. 5. Increased random blood sugar. 6. Increased WBC, possible reactive. 7. History of degenerative joint disease. 8. History of congestive heart failure with acute systolic dysfunction, ejection fraction 35% to 40%, with multiple wall hypokinesis on 2-D echo. 9. FULL CODE. DISCHARGE DISPOSITION: The patient will be discharged in a stable condition with guarded prognosis. Cardiology cleared the patient for discharge. HISTORY OF PRESENT ILLNESS: This 61-year-old gentleman who was admitted with chest pain with features of acute ST-segment elevation myocardial infarction . Patient underwent cardiac catheterization which showed critical LAD stenosis, stenting was done. Patient improved significantly. Ejection fraction found with 35% to 40%. ( ) Cardiology saw the patient. On exam, vitals are stable. CARDIOVASCULAR SYSTEM: S1, S2 muffled. ABDOMEN: Soft. NERVOUS SYSTEM: No focal deficits. DISCHARGE ADVICE: 1. Diet is cardiac. 2. Activity limited until followup. 3. Follow up with Dr. Bolton in 2 to 3 days. 4. Follow up with Dr. Salmeron in one week. MEDICATIONS: 1. Ecotrin 325 mg daily. 2. Lipitor 80 mg q.h.s. 3. Zestril 2.5 mg daily. 4. Toprol XL 75 mg p.o. daily. 5. Nitrostat 0.4 sublingual p.r.n. 6. Effient 10 mg p.o. daily. 7. Aldactone 25 mg p.o. daily. Once again, the patient will be discharged in stable condition with guarded prognosis.
== END 2016-03-06 12:00 | disposition home or self-care (01) | DRG 246 ==
LOC: EC 07:54 → 6ICU 08:52
PROVIDERS: ADMIT Internal Medicine Interventional Cardiology; ATTEND Internal Medicine Interventional Cardiology
PROC: 02C03ZZ Extirpation of Matter from Coronary Artery, One Artery, Percutaneous Approach (ICD-10-PCS; principal; 2016-03-04)
PROC: B2111ZZ Fluoroscopy of Multiple Coronary Arteries using Low Osmolar Contrast (ICD-10-PCS; principal; 2016-03-04)
PROC: 4A023N7 Measurement of Cardiac Sampling and Pressure, Left Heart, Percutaneous Approach (ICD-10-PCS; principal; 2016-03-04)
PROC: 027034Z Dilation of Coronary Artery, One Artery with Drug-eluting Intraluminal Device, Percutaneous Approach (ICD-10-PCS; principal; 2016-03-04)
DX: I21.09 ST elevation (STEMI) myocardial infarction involving other coronary artery of anterior wall (principal); I50.21 Acute systolic (congestive) heart failure; E78.5 Hyperlipidemia, unspecified; F17.200 Nicotine dependence, unspecified, uncomplicated; I25.10 Atherosclerotic heart disease of native coronary artery without angina pectoris; I25.5 Ischemic cardiomyopathy; M19.90 Unspecified osteoarthritis, unspecified site; Z79.82 Long term (current) use of aspirin; Z95.5 Presence of coronary angioplasty implant and graft; Z79.899 Other long term (current) drug therapy
CPT/HCPCS: 36415; 71010; 80048; 80053; 80061; 82550; 82553; 83735; 84100; 84484; 85025; 85027; 85610; 85730; 93005; 93306; 93454; 96374; 99285

== ENCOUNTER → 2016-08-14 | Outpatient (CLI) | payer OTHER ==
[2016-08-14 13:19] LABS: CH 32.6; CHCM 35.2; HCT 42.5 % (39.0-53.0); HDW 2.48; HGB 14.5 gm/dL (13.0-17.5); MCH 31.8 pg (25.0-35.0); MCHC 34.2 g/dL (31.0-37.0); MCV 92.9 fL (80.0-100.0); Mean Platelet Volume 6.3; RBC 4.58 m/uL (4.30-5.90); RDW 12.4 % (11.5-15.5); WBC 8.4 k/uL (3.8-10.6)
[2016-08-14 13:31] LABS: Anion Gap 15 mmol/L; Blood Urea Nitrogen 15 mg/dL (9-20); Calcium 9.8 mg/dL (8.4-10.2); Carbon Dioxide 22 mmol/L (22-30); Chloride 106 mmol/L (98-107); Glucose 160 mg/dL (74-99); Non-African American GFR(MDRD) >60 (>60 ml/min/1.73 sqM); Potassium 4.6 mmol/L (3.5-5.1); Sodium 143 mmol/L (137-145)
== END | disposition home or self-care (01) ==
LOC: LABWHC1 12:58
PROVIDERS: ATTEND Internal Medicine Interventional Cardiology
DX: N18.9 Chronic kidney disease, unspecified (principal); D64.9 Anemia, unspecified
CPT/HCPCS: 36415; 80048; 85027

== ENCOUNTER → 2017-07-16 | Outpatient (CLI) | payer OTHER ==
[2017-07-16 10:12] LABS: ALT 51 U/L (21-72); AST 40 U/L (17-59); Cholesterol 162 mg/dL (<200); HDL Cholesterol 57 mg/dL (40-60); LDL Cholesterol,Calculated 89 mg/dL (0-99); Triglycerides 82 mg/dL (<150)
== END | disposition home or self-care (01) ==
LOC: LABWHC1 09:27
PROVIDERS: ATTEND Internal Medicine Interventional Cardiology
DX: E78.2 Mixed hyperlipidemia (principal)
CPT/HCPCS: 36415; 80061; 84450; 84460

== ENCOUNTER → 2018-03-08 | Outpatient (CLI) | payer OTHER ==
[2018-03-08 18:39] LABS: LDL Cholesterol,Calculated 77.6 mg/dL (0.0-131.0); VLDL Calculation 31.4 mg/dL (5.00-40.00)
== END | disposition home or self-care (01) ==
LOC: LABWHC1 08:08
PROVIDERS: ATTEND Internal Medicine Interventional Cardiology
DX: E78.2 Mixed hyperlipidemia (principal)
CPT/HCPCS: 36415; 80061; 84450; 84460

== ENCOUNTER 2018-05-31 09:25 | Observation (INO) | payer OTHER ==
[2018-05-31] MEDS ORDERED: SODIUM CHLORIDE 0.9% 1,000 ML IV STA (09:37)
[2018-05-31] MEDS ORDERED: ASPIRIN 81 MG PO STA (09:37)
[2018-05-31] MEDS ORDERED: MORPHINE SULFATE 4 MG/ML SYRINGE IV STA (09:37)
[2018-05-31] MEDS ORDERED: NITROGLYCERIN OINT 1 INCH/GM PACKET TOPICAL STA (09:37)
--- NOTE | 2018-05-31 09:40 | ED ---
General Adult HPI - General Stated complaint: chest pain Time Seen by Provider: 05/31/18 09:29 Source: patient, RN notes reviewed Limitations: no limitations - History of Present Illness Initial comments: Patient is a pleasant 63-year-old male presenting to the emergency Department with chest discomfort. Patient states he was doing light exertion with onset of symptoms. Discomfort is currently rated 7/10. Patient states discomfort feels like pressure and tightness in the left anterior chest. No radiation. There is some mild dyspnea. No nausea or diaphoresis. Patient did have similar symptoms 2 years ago associated with heart attack and stent placement. Patient states symptoms are somewhat worse this time. Patient did take nitroglycerin at home without any improvement of symptoms. - Related Data Home Medications Medication Instructions Recorded Confirmed Metoprolol Succinate [Toprol Xl] 50 mg PO DAILY 05/31/18 05/31/18 Previous Rx's Medication Instructions Recorded Aspirin 325 mg PO DAILY #30 tab 03/06/16 Atorvastatin [Lipitor] 80 mg PO HS #30 tab 03/06/16 Lisinopril [Zestril] 2.5 mg PO DAILY #30 tab 03/06/16 Nitroglycerin Sl Tabs [Nitrostat] 0.4 mg SUBLINGUAL Q5M PRN #20 tab 03/06/16 Allergies Allergy/AdvReac Type Severity Reaction Status Date / Time No Known Allergies Allergy Verified 05/31/18 09:52 Review of Systems ROS Statement: Those systems with pertinent positive or pertinent negative responses have been documented in the HPI. ROS Other: All systems not noted in ROS Statement are negative. Constitutional: Denies: fever Eyes: Denies: eye pain ENT: Denies: ear pain Respiratory: Denies: cough Cardiovascular: Reports: chest pain Endocrine: Denies: fatigue Gastrointestinal: Denies: abdominal pain Genitourinary: Denies: dysuria Musculoskeletal: Denies: back pain Skin: Denies: rash Neurological: Denies: weakness Past Medical History Past Medical History: Coronary Artery Disease (CAD) Additional Past Medical History / Comment(s): Pt does not go to the doctors. History of Any Multi-Drug Resistant Organisms: None Reported Past Surgical History: Heart Catheterization With Stent, Orthopedic Surgery, Tonsillectomy Additional Past Surgical History / Comment(s): left knee surgery Past Anesthesia/Blood Transfusion Reactions: No Reported Reaction Smoking Status: Current every day smoker - Past Family History Father Family Medical History: Renal Disease Additional Family Medical History / Comment(s): Father of renal failure at the age of 92. Mother Family Medical History: Cancer Additional Family Medical History / Comment(s): Mother in her 60's from some form of cancer that ended up in her lymph nodes. General Exam Limitations: no limitations General appearance: alert Head exam: Present: atraumatic Eye exam: Present: normal appearance, PERRL ENT exam: Present: normal oropharynx Neck exam: Present: normal inspection Respiratory exam: Present: normal lung sounds bilaterally. Absent: chest wall tenderness Cardiovascular Exam: Present: regular rate, normal rhythm Expanded Peripheral pulses: 2+: Radial (R), Radial (L), Posterior Tibialis (R), Posterior Tibialis (L), Dorsalis Pedis (R), Dorsalis Pedis (L) GI/Abdominal exam: Present: soft. Absent: tenderness Extremities exam: Present: normal inspection. 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 RI 154. QRS 1:30. QT 402. QTC 424. Normal axis. Right bundle branch block. No acute ST change. Medical Decision Making - Medical Decision Making Patient reevaluated and somewhat improved following morphine. Patient appears more comfortable in bed. Patient and family updated on results and plan. Dr. Bolton has been paged for admission. Patient has PVC seen Dr. Salmeron and he will placed on consult. - Lab Data Result diagrams: 05/31/18 09:34 05/31/18 09:34 Lab Results 05/31/18 05/31/18 05/31/18 Range/Units 09:34 09:34 09:34 WBC 8.4 (3.8-10.6) k/uL RBC 4.76 (4.30-5.90) m/uL Hgb 14.8 (13.0-17.5) gm/dL Hct 43.9 (39.0-53.0) % MCV 92.2 (80.0-100.0) fL MCH 31.1 (25.0-35.0) pg MCHC 33.7 (31.0-37.0) g/dL RDW 12.3 (11.5-15.5) % Plt Count 312 (150-450) k/uL Neutrophils % 61 % Lymphocytes % 23 % Monocytes % 9 % Eosinophils % 2 % Basophils % 0 % Neutrophils # 5.1 (1.3-7.7) k/uL Lymphocytes # 2.0 (1.0-4.8) k/uL Monocytes # 0.8 (0-1.0) k/uL Eosinophils # 0.2 (0-0.7) k/uL Basophils # 0.0 (0-0.2) k/uL PT 10.2 (9.0-12.0) sec INR 0.9 (<1.2) APTT 24.5 (22.0-30.0) sec Sodium 140 (137-145) mmol/L Potassium 4.1 (3.5-5.1) mmol/L Chloride 107 (98-107) mmol/L Carbon Dioxide 22 (22-30) mmol/L Anion Gap 11 mmol/L BUN 15 (9-20) mg/dL Creatinine 0.69 (0.66-1.25) mg/dL Est GFR (CKD-EPI)AfAm >90 (>60 ml/min/1.73 sqM) Est GFR (CKD-EPI)NonAf >90 (>60 ml/min/1.73 sqM) Glucose 116 H (74-99) mg/dL Calcium 10.0 (8.4-10.2) mg/dL Magnesium 1.9 (1.6-2.3) mg/dL Total Bilirubin 1.0 (0.2-1.3) mg/dL AST 39 (17-59) U/L ALT 57 (21-72) U/L Alkaline Phosphatase 72 (38-126) U/L Creatine Kinase <20 L (55-170) U/L Troponin I (0.000-0.034) ng/mL Total Protein 7.8 (6.3-8.2) g/dL Albumin 4.8 (3.5-5.0) g/dL 05/31/18 Range/Units 09:34 WBC (3.8-10.6) k/uL RBC (4.30-5.90) m/uL Hgb (13.0-17.5) gm/dL Hct (39.0-53.0) % MCV (80.0-100.0) fL MCH (25.0-35.0) pg MCHC (31.0-37.0) g/dL RDW (11.5-15.5) % Plt Count (150-450) k/uL Neutrophils % % Lymphocytes % % Monocytes % % Eosinophils % % Basophils % % Neutrophils # (1.3-7.7) k/uL Lymphocytes # (1.0-4.8) k/uL Monocytes # (0-1.0) k/uL Eosinophils # (0-0.7) k/uL Basophils # (0-0.2) k/uL PT (9.0-12.0) sec INR (<1.2) APTT (22.0-30.0) sec Sodium (137-145) mmol/L Potassium (3.5-5.1) mmol/L Chloride (98-107) mmol/L Carbon Dioxide (22-30) mmol/L Anion Gap mmol/L BUN (9-20) mg/dL Creatinine (0.66-1.25) mg/dL Est GFR (CKD-EPI)AfAm (>60 ml/min/1.73 sqM) Est GFR (CKD-EPI)NonAf (>60 ml/min/1.73 sqM) Glucose (74-99) mg/dL Calcium (8.4-10.2) mg/dL Magnesium (1.6-2.3) mg/dL Total Bilirubin (0.2-1.3) mg/dL AST (17-59) U/L ALT (21-72) U/L Alkaline Phosphatase (38-126) U/L Creatine Kinase (55-170) U/L Troponin I <0.012 (0.000-0.034) ng/mL Total Protein (6.3-8.2) g/dL Albumin (3.5-5.0) g/dL - Radiology Data Radiology results: image reviewed (Chest x-ray shows no acute process) Critical Care Time Critical Care Time: Yes Total Critical Care Time: 33 Disposition Clinical Impression: Unstable angina pectoris Disposition: ADMITTED IP TO THIS HOSP Condition: Serious Is patient prescribed a controlled substance at d/c from ED?: No Referrals: Garrett Bolton DO [Primary Care Provider] - 1-2 days Decision Time: 10:43
[2018-05-31 09:48] LABS: Basophils % (A) 0 %; Eosinophils # (A) 0.2 k/uL (0-0.7); Eosinophils % (A) 2 %; HCT 43.9 % (39.0-53.0); HGB 14.8 gm/dL (13.0-17.5); Lymphocytes % (A) 23 %; MCH 31.1 pg (25.0-35.0); MCHC 33.7 g/dL (31.0-37.0); MCV 92.2 fL (80.0-100.0); Mean Platelet Volume 6.4; Monocytes # (A) 0.8 k/uL (0-1.0); Monocytes % (A) 9 %; Neutrophils # (A) 5.1 k/uL (1.3-7.7); Neutrophils % (A) 61 %; Platelet Count 312 k/uL (150-450); RBC 4.76 m/uL (4.30-5.90); RDW 12.3 % (11.5-15.5); WBC 8.4 k/uL (3.8-10.6)
[2018-05-31 09:59] LABS: ALT 57 U/L (21-72); AST 39 U/L (17-59); Albumin 4.8 g/dL (3.5-5.0); Alkaline Phosphatase 72 U/L (38-126); Anion Gap 11 mmol/L; Blood Urea Nitrogen 15 mg/dL (9-20); Carbon Dioxide 22 mmol/L (22-30); Chloride 107 mmol/L (98-107); Creatine Kinase <20 U/L (55-170); Glucose 116 mg/dL (74-99); Magnesium 1.9 mg/dL (1.6-2.3); Potassium 4.1 mmol/L (3.5-5.1); Sodium 140 mmol/L (137-145); Total Protein 7.8 g/dL (6.3-8.2)
[2018-05-31 10:06] LABS: INR 0.9 (<1.2); Partial Thromboplastin Time 24.5 sec (22.0-30.0); Prothrombin Time 10.2 sec (9.0-12.0)
--- NOTE | 2018-05-31 10:10 | XR ---
EXAMINATION TYPE: XR chest 2V DATE OF EXAM: 05/31/2018 COMPARISON: 03/03/2016 HISTORY: Left-sided chest pain and shortness of breath TECHNIQUE: Frontal and lateral views of the chest are obtained. FINDINGS: There is no focal air space opacity, pleural effusion, or pneumothorax seen. The cardiac silhouette size is mildly enlarged. The osseous structures are intact. IMPRESSION: No acute cardiopulmonary process.
[2018-05-31] MEDS ORDERED: NITROGLYCERIN SL TABS 0.4 MG TAB SUBLINGUAL PRN ×2 (10:43→13:17)
[2018-05-31] MEDS ORDERED: HEPARIN SODIUM,PORCINE 5,000 UNIT/ML 1 ML VIAL IV ONE (10:43)
[2018-05-31] MEDS ORDERED: HEPARIN SODIUM,PORCINE 5,000 UNIT/ML 1 ML VIAL IV PRN (10:43)
[2018-05-31] MEDS ORDERED: HEPARIN SOD,PORK IN 0.45% NACL 25,000 UNIT in 0.45% NACL 1 250ML.BAG IV SCH (10:45)
[2018-05-31] MEDS ORDERED: NITROGLYCERIN-D5W PMX 50 MG in DEXTROSE/WATER 1 250ML.BAG IV ONE (10:48)
[2018-05-31 12:49] VITALS: BMI 27.3
[2018-05-31] MEDS: METOPROLOL SUCCINATE (ER) 50 MG TAB.ER.24H PO SCH (13:40)
[2018-05-31] MEDS: LISINOPRIL 2.5 MG TAB PO SCH (13:40)
[2018-05-31] MEDS ORDERED: ATORVASTATIN 80 MG TAB PO SCH (21:00)
[2018-05-31] MEDS: ACETAMINOPHEN TAB 325 MG TAB PO PRN (21:38)
[2018-06-01 05:55] LABS: Basophils % (A) 0 %; Eosinophils # (A) 0.1 k/uL (0-0.7); Eosinophils % (A) 1 %; HCT 40.1 % (39.0-53.0); HGB 13.4 gm/dL (13.0-17.5); Lymphocytes # (A) 1.7 k/uL (1.0-4.8); Lymphocytes % (A) 17 %; MCH 30.2 pg (25.0-35.0); MCHC 33.3 g/dL (31.0-37.0); MCV 90.5 fL (80.0-100.0); Mean Platelet Volume 7.1; Monocytes # (A) 0.9 k/uL (0-1.0); Monocytes % (A) 9 %; Neutrophils # (A) 7.2 k/uL (1.3-7.7); Neutrophils % (A) 70 %; Platelet Count 297 k/uL (150-450); RBC 4.43 m/uL (4.30-5.90); RDW 13.2 % (11.5-15.5); WBC 10.2 k/uL (3.8-10.6)
[2018-06-01 06:33] LABS: Anion Gap 9 mmol/L; Blood Urea Nitrogen 13 mg/dL (9-20); Calcium 9.6 mg/dL (8.4-10.2); Carbon Dioxide 21 mmol/L (22-30); Chloride 109 mmol/L (98-107); Cholesterol 145 mg/dL (<200); Glucose 117 mg/dL (74-99); HDL Cholesterol 54 mg/dL (40-60); LDL Cholesterol,Calculated 70 mg/dL (0-99); Potassium 4.2 mmol/L (3.5-5.1); Sodium 139 mmol/L (137-145); Triglycerides 105 mg/dL (<150)
[2018-06-01] MEDS ORDERED: ASPIRIN 325 MG TAB PO SCH (09:00)
[2018-06-01] MEDS ORDERED: ASPIRIN 325 MG TAB PO STA (09:16)
[2018-06-01] MEDS ORDERED: ALPRAZolam 0.25 MG TAB PO PRN (09:16)
[2018-06-01] MEDS ORDERED: NITROGLYCERIN SL TABS 0.4 MG TAB SUBLINGUAL PRN (09:16)
[2018-06-01] MEDS ORDERED: ALPRAZolam 0.5 MG TAB PO PRN (09:16)
[2018-06-01] MEDS ORDERED: ATORVASTATIN 80 MG TAB PO STA (09:16)
[2018-06-01] MEDS ORDERED: SODIUM CHLORIDE 0.9% 1,000 ML in EMPTY BAG 1 BAG IV ONE (09:16)
--- NOTE | 2018-06-01 09:22 | CONS ---
CONSULTATION Mr. Perdomo is a 63-year-old gentleman with history of coronary artery disease, status post angioplasty of proximal LAD in 2017, who presented to the hospital complaining of chest pain. He describes it as a precordial chest pressure that started at work, intermittent, pressure-like sensation with mild shortness of breath. There is no radiation to left arm or back. There is no relationship to breathing or movement. He subsequently has had more episodes of chest pain. He went home and drove to hospital as the pain got more intense from his description. He states that this pain is worse than the pain that he had back in 2017. Patient sees my associate Dr. Salmeron regularly and apparently had a negative stress test within the last several months. His EKG shows sinus rhythm with right bundle branch block. Cardiac enzymes have been negative. Labs show that the creatinine is 0.6, potassium is 4.2. The patient on admission was treated with intravenous heparin and IV nitroglycerin and his pain has resolved over a period of time. It is unclear as to what exactly has resolved his pain, whether it is the nitro or the Tylenol that he has received. At the time of my evaluation this morning, he is pain free, hemodynamically stable and in no apparent distress. I advised him to undergo cardiac catheterization on Sunday with Dr. Salmeron. The patient wishes to have the catheterization done sooner so that he can go home if it is normal. PAST MEDICAL HISTORY: Significant for coronary artery disease, status post angioplasty, hypertension, dyslipidemia. MEDICATIONS: Include Toprol-XL 50 daily, Zestril 2.5 daily, Lipitor 80 daily and aspirin along with sublingual nitroglycerin. ALLERGIES: No known drug allergies. FAMILY HISTORY: Negative for premature coronary artery disease. SOCIAL HISTORY: Negative for smoking, EtOH abuse, or drug abuse. REVIEW OF SYSTEMS: HEENT is unremarkable. Cardiac as described above. Respiratory negative. GI negative. GENITOURINARY: Negative. ALLERGY/IMMUNOLOGY: Negative. Skin negative. Musculoskeletal negative. Endocrine negative. Derm negative. Constitutional negative. Oncological negative. Rest of the system review is not relevant. EXAM: Patient is comfortable at rest. Vital signs are stable. There is no jugular venous distention. Carotid upstroke is normal. There is no bruit. Chest exam reveals good air entry bilaterally. Heart exam reveals first and second heart sounds. No gallop. No murmur. No rub. Abdomen is soft, nontender. Exam of extremities did not reveal edema. Peripheral pulses are felt. 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 LABORATORY DATA: Lab show a hemoglobin of 13.4, platelet count is 297. Potassium is 4.2, creatinine is 0.6. Tropes are negative. LDL cholesterol is 70. ASSESSMENT: Unstable angina. PLAN: The patient has known CAD and had prior angioplasty of LAD. The exact etiology for his chest pain is unclear. Apparently had a recent negative stress test. He will undergo cardiac catheterization for definitive diagnosis. Understands risks, benefits and alternatives. MMODL / IJN: [id number] /
--- NOTE | 2018-06-01 09:27 | ECHOF ---
Referral Reason:lv function; MEASUREMENTS -------- HEIGHT: 172.7 cm WEIGHT: 81.6 kg BP: RVIDd: 3.0 cm (< 3.3) IVSd: 1.4 cm (0.6 - 1.1) LVIDd: 4.3 cm (3.9 - 5.3) LVPWd: 1.2 cm (0.6 - 1.1) IVSs: 1.5 cm LVIDs: 2.7 cm LVPWs: 1.9 cm Ao Diam: 3.1 cm (2.0 - 3.7) AV Cusp: 2.5 cm (1.5 - 2.6) LA Diam: 3.3 cm (2.7 - 3.8) MV EXCURSION: 11.453 mm (> 18.000) MV EF SLOPE: 78 mm/s (70 - 150) EPSS: 0.9 cm MV E Chris: 0.52 m/s MV DecT: 237 ms MV A Chris: 0.84 m/s MV E/A Ratio: 0.62 RAP: 5.00 mmHg RVSP: 14.52 mmHg FINDINGS -------- Sinus rhythm. This was a technically difficult study with suboptimal views. The left ventricular size is normal. There is moderate concentric left ventricular hypertrophy. O verall left ventricular systolic function is normal with, an EF between 55 - 60 %. The right ventricle is normal in size. The left atrial size is normal. The right atrial size is normal. The aortic valve is trileaflet and appears structurally normal. There is trace mitral regurgitation. Trace tricuspid regurgitation present. The right ventricular systolic pressure, as measured by Dopp ler, is 14.52mmHg. There is no pulmonic regurgitation present. The aortic root size is normal. Normal inferior vena cava with normal inspiratory collapse consistent with estimated right atrial pre ssure of 5 mmHg. There is no pericardial effusion. CONCLUSIONS -------- 1. Sinus rhythm. 2. This was a technically difficult study with suboptimal views. 3. The left ventricular size is normal. 4. There is moderate concentric left ventricular hypertrophy. 5. Overall left ventricular systolic function is normal with, an EF between 55 - 60 %. 6. The right ventricle is normal in size. 7. The left atrial size is normal. 8. The right atrial size is normal. 9. The aortic valve is trileaflet and appears structurally normal. 10. There is trace mitral regurgitation. 11. Trace tricuspid regurgitation present. 12. The right ventricular systolic pressure, as measured by Doppler, is 14.52mmHg. 13. There is no pulmonic regurgitation present. 14. The aortic root size is normal. 15. Normal inferior vena cava with normal inspiratory collapse consistent with estimated right atrial pressure of 5 mmHg. 16. There is no pericardial effusion. CHIEF HOSPITAL ADMINISTRATOR: Leilani Brush RDCS
[2018-06-01] MEDS ORDERED: IV FLUID CONTINUATION 600 ML IV ONE (10:15)
[2018-06-01] MEDS ORDERED: fentaNYL (PF) 50 MCG/ML 2 ML AMP ONE (10:20)
[2018-06-01] MEDS ORDERED: MIDAZOLAM (PF) 2 MG/2 ML VIAL IV ONE (10:21)
[2018-06-01] MEDS ORDERED: fentaNYL (PF) 50 MCG/ML 2 ML AMP IV ONE (10:24)
[2018-06-01] MEDS ORDERED: LIDOCAINE 1% INJ 10MG/ML (20 ML MDV) SQ ONE (10:25)
[2018-06-01] MEDS ORDERED: ASPIRIN 325 MG TAB PO ONE (10:30)
[2018-06-01] MEDS ORDERED: ASPIRIN 325 MG TAB ONE (10:32)
[2018-06-01] MEDS ORDERED: IOPAMIDOL-370 100ML BTL INJ ONE (10:44)
[2018-06-01] MEDS ORDERED: IOPAMIDOL-370 50ML BTL INJ ONE (10:44)
[2018-06-01] MEDS ORDERED: RX INFO: IV CONTRAST WAS GIVEN 1 EACH MISC MISCELLANE PRN (10:52)
--- NOTE | 2018-06-01 11:16 | CC ---
CARDIAC CATHETERIZATION REPORT INDICATION: Unstable angina. PROCEDURE NOTE: After obtaining informed consent, left heart catheterization and coronary angiogram were performed via the right femoral artery using standard Toribio catheters. The patient tolerated the procedure well without any obvious immediate complications. A femoral angiogram was performed and Angio-Seal was deployed for hemostasis. Patient received moderate conscious sedation. Total sedation time was 18 minutes. FINDINGS: 1. HEMODYNAMICS: Left ventricular end-diastolic pressure is 14 mm. There is no significant gradient across the aortic valve. 2. LEFT VENTRICULOGRAM: Left ventriculogram was performed in ANG position and shows normal left ventricular size and systolic function with an ejection fraction of 60%. 3. ANGIOGRAPHIC DATA: Left Main Coronary Artery: Left main coronary artery is a normal-sized vessel and is free of stenosis. Divides into left anterior descending coronary artery and circumflex coronary artery. Previously stented LAD, mid LAD, appears patent and is free of significant disease. Circumflex coronary artery is a nondominant vessel, shows mild nonobstructive disease. Right coronary artery is a large dominant vessel. In the distal portion, there is an irregular ectatic lesion. CONCLUSIONS: 1. Patent stent within the left anterior descending artery. 2. Nonobstructive coronary artery disease involving circumflex and right coronary artery. PLAN: I reviewed angiographic data with the patient and told him that his management is going to be in the form of risk factor modification, optimal medical therapy and his chest discomfort is probably noncardiac in origin. MMODL / IJN: [id number] /
[2018-06-01] MEDS: LISINOPRIL 2.5 MG TAB PO SCH (11:57)
[2018-06-01] MEDS: METOPROLOL SUCCINATE (ER) 50 MG TAB.ER.24H PO SCH (11:57)
[2018-06-01] MEDS: SODIUM CHLORIDE 0.9% 1,000 ML IV SCH (12:03)
[2018-06-01] MEDS: ACETAMINOPHEN TAB 325 MG TAB PO PRN (22:36)
--- NOTE | 2018-06-01 22:53 | P.HPIM ---
History of Present Illness H&P Date: 06/01/18 Chief Complaint: Chest pain Patient is a 63-year-old male with a known history of coronary artery disease with stent placement to LAD in 2017, previous history of smoking came to ER with complaints of chest discomfort. Patient has been having left retrosternal intermittent chest pain lasting about a few seconds 7 out of 10 in severity pressure-like sensation and tightness. Patient says that his symptoms occur with light exertion and also sometimes moving forward. Denied any associated shortness of breath. No nausea vomiting or diaphoresis. Patient does have a history of MN and stent placement. Otherwise patient denied any complaints of nausea vomiting or diarrhea. No cough or sputum production. No fever no chills. Denied any recent illnesses. Patient says that he had recent negative stress test couple of months ago EKG showed normal sinus rhythm Serial troponin 2 negative Review of Systems Constitutional: Patient denies any fever or chills . No generalized weakness or weight loss. Abdomen: Patient denied nausea vomiting and diarrhea and abdominal pain. Cardiovascular: Patient denies any chest pain or short of breath no palpitations. Respiratory: patient denied any cough is from production. No shortness of breath Neurologic: Patient denied any numbness or tingling headache. Musculoskeletal: Patient denies any complaints of joint swelling or deformity. Skin: Negative Psychiatric: Negative Endocrine: No heat or cold intolerance. No recent weight gain. Genitourinary: No dysuria or hematuria. All other 14 point ROS negative except the above Past Medical History Past Medical History: Coronary Artery Disease (CAD) Additional Past Medical History / Comment(s): Pt does not go to the doctors. History of Any Multi-Drug Resistant Organisms: None Reported Past Surgical History: Heart Catheterization With Stent, Orthopedic Surgery, Tonsillectomy Additional Past Surgical History / Comment(s): left knee surgery Past Anesthesia/Blood Transfusion Reactions: No Reported Reaction Date of Last Stent Placement:: 2016 Past Psychological History: No Psychological Hx Reported Additional Psychological History / Comment(s): Pt resides with his spouse and adult daughter. He is independent. Smoking Status: Former smoker Past Alcohol Use History: Daily Additional Past Alcohol Use History / Comment(s): Pt started smoking in 1973. He is a ppd smoker. Pt drinks 3-5 beers a day. Past Drug Use History: None Reported - Past Family History Father Family Medical History: Renal Disease Additional Family Medical History / Comment(s): Father of renal failure at the age of 92. Mother Family Medical History: Cancer Additional Family Medical History / Comment(s): Mother in her 60's from some form of cancer that ended up in her lymph nodes. Medications and Allergies Home Medications Medication Instructions Recorded Confirmed Type Aspirin 325 mg PO DAILY #30 tab 03/06/16 05/31/18 Rx Atorvastatin [Lipitor] 80 mg PO HS #30 tab 03/06/16 05/31/18 Rx Lisinopril [Zestril] 2.5 mg PO DAILY #30 tab 03/06/16 05/31/18 Rx Nitroglycerin Sl Tabs [Nitrostat] 0.4 mg SUBLINGUAL Q5M PRN #20 tab 03/06/16 05/31/18 Rx Metoprolol Succinate [Toprol Xl] 50 mg PO DAILY 05/31/18 05/31/18 History Allergies Allergy/AdvReac Type Severity Reaction Status Date / Time No Known Allergies Allergy Verified 05/31/18 09:52 Physical Exam Vitals: Vital Signs Temp Pulse Resp BP Pulse Ox 06/01/18 11:37 16 116/69 95 06/01/18 11:22 18 109/73 94 L 06/01/18 11:07 98.1 F 18 119/70 96 06/01/18 10:30 14 95 06/01/18 08:00 97.9 F 103 H 16 148/53 93 L 06/01/18 04:00 16 06/01/18 03:39 98.1 F 76 16 121/69 93 L 05/31/18 23:12 97.7 F 77 15 113/68 94 L 05/31/18 20:57 97.9 F 74 16 112/72 94 L 05/31/18 20:36 97 05/31/18 16:00 97.8 F 77 18 124/66 99 Intake and Output 05/31/18 06/01/18 06/01/18 22:59 06:59 14:59 Intake Total 60 218.719 100 Output Total 175 Balance 60 218.719 -75 Intake: IV 100 Intake, IV Titration 218.719 Amount Heparin Sod,Pork in 0.45% 118.719 NaCl 25,000 unit In 0.45 % NaCl 1 250ml.bag @ 12 UNITS/KG/HR 9.798 mls/hr IV .Q24H [facility] Rx#: [id number] Nitroglycerin-D5w Pmx 50 100 mg In Dextrose/Water 1 250ml.bag @ 10 MCG/MIN 3 mls/hr IV .Q24H [facility] Rx#: [id number] Oral 60 0 Output: Urine 175 Other: Voiding Method Toilet Toilet # Voids 2 1 1 Weight 88.1 kg PHYSICAL EXAMINATION: Patient is lying in the bed comfortably, no acute distress, awake alert and oriented.. HEENT: Normocephalic. Neck is supple. Pupils reactive. Nostrils clear. Oral cavity is moist. Ears reveal no drainage. Neck reveals no JVD, carotid bruits, or thyromegaly. CHEST EXAMINATION: Trachea is central. Symmetrical expansion. Lung michael clear to auscultation and percussion. CARDIAC: Normal S1, S2 with no gallops. No murmurs ABDOMEN: Soft. Bowel sounds normal. No organomegaly. No abdominal bruits. Extremities: reveal no edema. No clubbing or cyanosis Neurologically awake, alert, oriented x3 with well-coordinated movements. No focal deficits noted Skin: No rash or skin lesions. Psychiatric: Coperative. Nonsuicidal Musculoskeletal: No joint swelling or deformity. Normal range of motion. Results CBC & Chem 7: 06/01/18 05:29 06/01/18 05:29 Labs: Abnormal Lab Results - Last 24 Hours (Table) 05/31/18 05/31/18 06/01/18 Range/Units 16:10 22:18 05:29 APTT 47.4 H 40.2 H (22.0-30.0) sec Chloride 109 H (98-107) mmol/L Carbon Dioxide 21 L (22-30) mmol/L Creatinine 0.60 L (0.66-1.25) mg/dL Glucose 117 H (74-99) mg/dL 06/01/18 Range/Units 05:29 APTT 47.6 H (22.0-30.0) sec Chloride (98-107) mmol/L Carbon Dioxide (22-30) mmol/L Creatinine (0.66-1.25) mg/dL Glucose (74-99) mg/dL Thrombosis Risk Factor Assmnt - DVT/VTE Prophylaxis DVT/VTE Prophylaxis: Pharmacologic Prophylaxis ordered - Choose All That Apply Each Factor Represents 1 point: Acute MN Each Risk Factor Represents 2 Points: Age 61-74 years Thrombosis Risk Factor Assessment Total Risk Factor Score: 3 Thrombosis Risk Factor Assessment Level: Moderate Risk Assessment and Plan Assessment: Unstable angina. Status post cardiac catheterization and no PCI required. History of coronary artery disease with proximal LAD stent placement in 2017. Previous history of smoking Osteoarthritis DVT prophylaxis Plan: Patient was admitted to the hospital with intermittent chest pains. Serial EKG and troponins 3 negative. Patient is status post cardiac catheterization. No PCI required. 2-D echocardiogram was done. Otherwise currently patient denied any complaints of chest pain. We will continue with aspirin statins and metoprolol and lisinopril. Cardiology is on board. Further recommendations based on the clinical course. Time with Patient: Greater than 30
[2018-06-02] MEDS: SODIUM CHLORIDE 0.9% 1,000 ML IV SCH (02:52)
[2018-06-02 06:36] LABS: Basophils % (A) 0 %; Eosinophils # (A) 0.1 k/uL (0-0.7); Eosinophils % (A) 2 %; HGB 13.2 gm/dL (13.0-17.5); Lymphocytes # (A) 1.4 k/uL (1.0-4.8); Lymphocytes % (A) 21 %; MCH 31.1 pg (25.0-35.0); MCHC 33.8 g/dL (31.0-37.0); MCV 92.3 fL (80.0-100.0); Mean Platelet Volume 6.9; Monocytes # (A) 0.7 k/uL (0-1.0); Monocytes % (A) 10 %; Neutrophils # (A) 4.2 k/uL (1.3-7.7); Neutrophils % (A) 64 %; Platelet Count 245 k/uL (150-450); RBC 4.22 m/uL (4.30-5.90); RDW 12.3 % (11.5-15.5); WBC 6.6 k/uL (3.8-10.6)
[2018-06-02 06:52] LABS: Anion Gap 7 mmol/L; Blood Urea Nitrogen 14 mg/dL (9-20); Calcium 9.4 mg/dL (8.4-10.2); Carbon Dioxide 22 mmol/L (22-30); Chloride 109 mmol/L (98-107); Glucose 105 mg/dL (74-99); Potassium 4.1 mmol/L (3.5-5.1); Sodium 138 mmol/L (137-145)
[2018-06-02] MEDS: METOPROLOL SUCCINATE (ER) 50 MG TAB.ER.24H PO SCH (08:28)
[2018-06-02] MEDS: LISINOPRIL 2.5 MG TAB PO SCH (08:28)
[2018-06-02 08:31] VITALS: BP 124/90; PULSE 85; RESP 16; TEMP 97.9
[2018-06-02] MEDS ORDERED: ASPIRIN 325 MG TAB PO SCH (09:00)
--- NOTE | 2018-06-02 10:37 | P.PN ---
Subjective Progress Note Date: 06/02/18 This is a 63-year-old gentleman with known history of coronary artery disease and prior stenting of the LAD in 2017 who presented to the hospital with symptoms of chest discomfort. He underwent a cardiac catheterization by Dr. Salmeron which revealed a patent stent in the LAD with nonobstructive coronary artery disease in the circumflex and RCA. Patient was seen and examined this morning, denied any chest pain or difficulty in breathing. He's been up ambulating without any difficulty. White blood cell count 6.6, hemoglobin 13.2, platelet count 245. Sodium 138, potassium 4.1, BUN 14 and creatinine 0.6. Objective - Vital Signs Vital signs: Vital Signs Temp 97.9 F 06/02/18 08:00 Pulse 85 06/02/18 08:00 Resp 16 06/02/18 08:00 BP 124/90 06/02/18 08:00 Pulse Ox 96 06/02/18 08:00 Intake & Output 06/01/18 06/02/18 06/02/18 18:59 06:59 18:59 Intake Total 220 180 Output Total 175 Balance 45 180 Weight 88 kg Intake: IV 100 Oral 120 180 Output: Urine 175 Other: Voiding Method Toilet # Voids 1 2 # Bowel Movements 0 - Exam PHYSICAL EXAMINATION: GENERAL: 63-year-old gentleman in no acute distress at the time of my examination HEENT: Head is atraumatic, normocephalic. Pupils equal, round. Sclera anicteric. Conjunctiva are clear. Mucous membranes of the mouth are moist. Neck is supple. There is no elevated jugular venous pressure. No carotid bruit is heard. HEART EXAMINATION: Heart S1, S2 normal. No murmur or gallop heard. CHEST EXAMINATION: Lungs are clear to auscultation and precussion. No chest wall tenderness is noted on palpation or with deep breathing. ABDOMEN: Soft, nontender. Bowel sounds are heard. No organomegaly noted. EXTREMITIES: 2+ peripheral pulses with no evidence of peripheral edema and no calf tenderness noted. Right groin soft, no evidence of any hematoma. NEUROLOGIC patient is awake, alert and oriented 3 . - Labs CBC & Chem 7: 06/02/18 06:13 06/02/18 06:13 Labs: Abnormal Lab Results - Last 24 Hours (Table) 06/02/18 06/02/18 Range/Units 06:13 06:13 RBC 4.22 L (4.30-5.90) m/uL Chloride 109 H (98-107) mmol/L Creatinine 0.64 L (0.66-1.25) mg/dL Glucose 105 H (74-99) mg/dL Assessment and Plan Plan: Assessment and plan #1 chest pain, status post cardiac catheterization which revealed a patent stent in the LAD with no significant obstructive disease in the circumflex or RCA. #2 known history of coronary artery disease with prior LAD stenting in 2017 #3 hyperlipidemia #4 hypertension Plan Patient may be able to be discharged home today from cardiology's perspective, we'll make him a follow-up appointment to see Dr. Hernandez in the office post discharge. We will put him on a dose of Imdur along with the rest of the medications he had been taking at home. DNP note has been reviewed, I agree with a documented findings and plan of care. Patient was seen and examined.
[2018-06-02] MEDS ORDERED: ISOSORBIDE MONONITRATE ER 30 MG TAB.ER.24H PO SCH (10:45)
[2018-06-02] MEDS ORDERED: ATORVASTATIN 80 MG TAB PO SCH (21:00)
== END 2018-06-02 12:24 | disposition home or self-care (01) ==
LOC: EC 09:25 → 1SOBS 10:49 → 3SCARD 12:15
PROVIDERS: ADMIT Family Medicine; ATTEND Family Medicine
DX: R07.89 Other chest pain (principal); I10 Essential (primary) hypertension; E78.5 Hyperlipidemia, unspecified; I45.10 Unspecified right bundle-branch block; I25.10 Atherosclerotic heart disease of native coronary artery without angina pectoris; I49.3 Ventricular premature depolarization; Z79.82 Long term (current) use of aspirin; Z79.899 Other long term (current) drug therapy; I25.2 Old myocardial infarction; Z87.891 Personal history of nicotine dependence; Z95.5 Presence of coronary angioplasty implant and graft; Z80.7 Family history of other malignant neoplasms of lymphoid, hematopoietic and related tissues; Z80.51 Family history of malignant neoplasm of kidney
CPT/HCPCS: 96366 ×3; 96376; 96368; 96361; 96365; 96375; 99291; 36415; 94760; 93306; 93458; 80061; 80053; 80048 ×2; 85652; 82550; 83735; 84484; 85025 ×3; 85610; 85730 ×3; 71046; G0378 ×4; C1760; C1894; C1769; J2270; J1644 ×2; J2001; J3010; Q9950; Q9967 ×2; J2250

== ENCOUNTER 2018-06-29 10:37 | Emergency (ER) | payer OTHER ==
[2018-06-29 10:54] VITALS: BP 119/86; PULSE 90; RESP 18; TEMP 98.2
--- NOTE | 2018-06-29 11:18 | ED ---
General Adult HPI - General Chief complaint: Skin/Abscess/Foreign Body Stated complaint: Skin tag infection Time Seen by Provider: 06/29/18 11:04 Source: patient Mode of arrival: ambulatory Limitations: no limitations - History of Present Illness Initial comments: Dictation was produced using [employer] dictation software. please excuse any grammatical, word or spelling errors. Chief Complaint: 63-year-old male presents with a rash to his inner thigh on the left. History of Present Illness: 63-year-old male presents with rash to his left inner thigh. Patient was recently [place] where he is been riding bike more frequently than usual. Patient states he has a skin tag chronically over the last several years to his left inner thigh. He states that over the last couple days it's been more erythematous. Patient is concerned that his infection. He is scheduled to have the skin tag removed in 2 weeks. Denies any constitutional symptoms. No testicular or perennial pain. The ROS documented in this emergency department record has been reviewed and confirmed by me. Those systems with pertinent positive or negative responses have been documented in the HPI. All other systems are other negative and/or noncontributory. PHYSICAL EXAM: General Impression: Alert and oriented x3, not in acute distress HEENT: Normocephalic atraumatic, extra-ocular movements intact, pupils equal and reactive to light bilaterally, mucous membranes moist. Cardiovascular: Heart regular rate and rhythm, S1&S2 audible, no murmurs, rubs or gallops Chest: Lungs clear to auscultation bilaterally, no rhonchi, no wheeze, no rales Abdomen: Bowel sounds present, abdomen soft, non-tender, non-distended, no organomegaly Musculoskeletal: Pulses present and equal in all extremities, no peripheral edema Motor: no focal deficits noted Neurological: CN II-XII grossly intact, no focal motor or sensory deficits noted Skin: No erythema or induration to the testicle or perennial area. There is a dark skin tag with surrounding erythema extending approximately 3 x 3 cm. Psych: Normal affect and mood ED course: 63-year-old male presents with clinical presentation concerning for cellulitis. All signs upon arrival are within acceptable limits. [id number] bedside ultrasound was performed with no findings to suggest abscess formation. Patient given prescription for Keflex for concern of infection. He is told to follow up with primary care physician for skin tag removal. Return parameters discussed. Patient understandable agreeable to disposition. - Related Data Home Medications Medication Instructions Recorded Confirmed Metoprolol Succinate [Toprol Xl] 50 mg PO DAILY 05/31/18 05/31/18 Previous Rx's Medication Instructions Recorded Aspirin 325 mg PO DAILY #30 tab 03/06/16 Atorvastatin [Lipitor] 80 mg PO HS #30 tab 03/06/16 Lisinopril [Zestril] 2.5 mg PO DAILY #30 tab 03/06/16 Nitroglycerin Sl Tabs [Nitrostat] 0.4 mg SUBLINGUAL Q5M PRN #20 tab 03/06/16 Isosorbide Mononitrate ER [Imdur] 30 mg PO DAILY #30 tab.er.24h 06/02/18 Cephalexin [Keflex] 500 mg PO Q6HR 5 Days #20 cap 06/29/18 Allergies Allergy/AdvReac Type Severity Reaction Status Date / Time No Known Allergies Allergy Verified 05/31/18 09:52 Review of Systems ROS Statement: Those systems with pertinent positive or pertinent negative responses have been documented in the HPI. ROS Other: All systems not noted in ROS Statement are negative. Past Medical History Past Medical History: Coronary Artery Disease (CAD) Additional Past Medical History / Comment(s): Pt does not go to the doctors. History of Any Multi-Drug Resistant Organisms: None Reported Past Surgical History: Heart Catheterization With Stent, Orthopedic Surgery, Tonsillectomy Additional Past Surgical History / Comment(s): left knee surgery Past Anesthesia/Blood Transfusion Reactions: No Reported Reaction Date of Last Stent Placement:: 2016 Past Psychological History: No Psychological Hx Reported Smoking Status: Former smoker Past Alcohol Use History: Daily Past Drug Use History: None Reported - Past Family History Father Family Medical History: Renal Disease Additional Family Medical History / Comment(s): Father of renal failure at the age of 92. Mother Family Medical History: Cancer Additional Family Medical History / Comment(s): Mother in her 60's from some form of cancer that ended up in her lymph nodes. General Exam Limitations: no limitations Course Vital Signs 06/29/18 10:51 Temperature 98.2 F Pulse Rate 90 Respiratory 18 Rate Blood Pressure 119/86 O2 Sat by Pulse 98 Oximetry Disposition Clinical Impression: Cellulitis Disposition: HOME SELF-CARE Condition: Good Instructions (If sedation given, give patient instructions): Cellulitis (ED) Prescriptions: Cephalexin [Keflex] 500 mg PO Q6HR 5 Days #20 cap Is patient prescribed a controlled substance at d/c from ED?: No Referrals: Garrett Bolton DO [Primary Care Provider] - 1-2 days Time of Disposition: 11:18
== END 2018-06-29 11:21 | disposition home or self-care (01) ==
LOC: EC 10:37
DX: L03.116 Cellulitis of left lower limb (principal); L91.8 Other hypertrophic disorders of the skin; I25.10 Atherosclerotic heart disease of native coronary artery without angina pectoris; Z87.891 Personal history of nicotine dependence; Z79.899 Other long term (current) drug therapy; Z95.5 Presence of coronary angioplasty implant and graft
CPT/HCPCS: 99283

== ENCOUNTER → 2018-10-15 | Outpatient (CLI) | payer OTHER ==
[2018-10-15 17:38] LABS: Chol/HDL Ratio 3.7; LDL Cholesterol,Calculated 91.6 mg/dL (0.0-131.0); VLDL Calculation 32.4 mg/dL (5.00-40.00)
== END | disposition home or self-care (01) ==
LOC: LABWHC1 07:48
PROVIDERS: ATTEND Internal Medicine Interventional Cardiology
DX: E78.2 Mixed hyperlipidemia (principal)
CPT/HCPCS: 36415; 80061; 84450; 84460

== ENCOUNTER → 2019-04-15 | Outpatient (CLI) | payer MEDICARE ==
[2019-04-15 16:50] LABS: Chol/HDL Ratio 3.62; LDL Cholesterol,Calculated 76.8 mg/dL (0.0-131.0); VLDL Calculation 33.2 mg/dL (5.00-40.00)
== END | disposition home or self-care (01) ==
LOC: LABWHC1 07:45
PROVIDERS: ATTEND Internal Medicine Interventional Cardiology
DX: E78.2 Mixed hyperlipidemia (principal)
CPT/HCPCS: 36415; 80061; 84450; 84460

== ENCOUNTER → 2019-10-14 | Outpatient (CLI) | payer MEDICARE ==
[2019-10-14 15:49] LABS: Chol/HDL Ratio 3.39; LDL Cholesterol,Calculated 66.4 mg/dL (0.0-131.0); VLDL Calculation 38.6 mg/dL (5.00-40.00)
== END | disposition home or self-care (01) ==
LOC: LABWHC1 10:16
PROVIDERS: ATTEND Nurse Practitioner Adult Health
DX: E78.5 Hyperlipidemia, unspecified (principal)
CPT/HCPCS: 36415; 80061

== ENCOUNTER → 2020-02-17 | Outpatient (CLI) | payer MEDICARE ==
--- NOTE | 2020-02-17 09:21 | CT ---
EXAMINATION TYPE: CT abdomen pelvis wo con DATE OF EXAM: 02/17/2020 COMPARISON: None HISTORY: 65-year-old male jaundice, alcohol abuse CT DLP: 414.8 mGycm. Automated exposure control for dose reduction was used. TECHNIQUE: Contiguous axial scanning of the abdomen and pelvis without IV contrast. Coronal and sagit magda reconstructions performed. FINDINGS: Heart normal size without pericardial effusion. Lung bases clear without pleural effusion. Small hiatal hernia. There is some sludge within the gallbladder. Gallbladder is upper limits of normal in distention juliane uring 3.9 cm wide. No surrounding inflammation. Bile duct appears dilated up to 1.8 cm with corresponding intrahepatic ductal dilatation is well. Noncontrast appearance of the liver, adrenal glands, right kidney, and spleen within normal limits. There appears to be dilatation of the main pancreatic duct up to 6 mm. No dilated small bowel, free fluid, or free air. A few scattered prominent but nonenlarged mesenteric lymph nodes are present throughout measuring up to 7 mm Scattered colonic diverticulosis with mild stool burden. Diverticular changes greatest in the mid sig moid colon. Moderate circumferential bladder wall thickening. Prostate gland is enlarged at 5.7 cm wide. No abnor mal fluid collection in the pelvis or pelvic lymphadenopathy. Bones: Advanced degenerative disc disease towards the right at L4-L5 and mild to moderate degenerativ e disc disease elsewhere. IMPRESSION: 1. Intrahepatic and extra hepatic biliary ductal dilatation. Bile duct is dilated up to 1.8 cm. Ther e is additional dilatation of the main pancreatic duct up to 6 mm. Unable to exclude an obstructing l esion or calculus at the distal duct/ampulla. Consider ERCP or MRI/MRCP. 2. Small hiatal hernia and scattered colonic diverticulosis. 3. Moderate circumferential bladder wall thickening could reflect chronic bladder wall hypertrophy o r cystitis. Clinically correlate. Prostatomegaly at 5.7 cm wide.
== END | disposition home or self-care (01) ==
LOC: RADCTMAIN 07:19
PROVIDERS: ATTEND Family Medicine
DX: K57.30 Diverticulosis of large intestine without perforation or abscess without bleeding (principal); N40.0 Benign prostatic hyperplasia without lower urinary tract symptoms; N32.89 Other specified disorders of bladder; K83.9 Disease of biliary tract, unspecified; R17 Unspecified jaundice; F10.10 Alcohol abuse, uncomplicated; K44.9 Diaphragmatic hernia without obstruction or gangrene
CPT/HCPCS: 74176

== ENCOUNTER → 2020-03-05 | Outpatient (CLI) | payer MEDICARE ==
--- NOTE | 2020-03-05 11:43 | XR ---
EXAMINATION TYPE: XR abdomen 1V DATE OF EXAM: 03/05/2020 COMPARISON: NONE HISTORY: Surgical follow-up TECHNIQUE: One view abdominal series FINDINGS: The osseous structures are intact. The bowel gas pattern is nonspecific. Appears to be a biliary angus nt in the right upper quadrant. Hypertrophic and degenerative change of the spine. Bone island in the right iliac bone.. IMPRESSION: 1. Nonspecific abdomen.
== END | disposition home or self-care (01) ==
LOC: RADXRMAIN 11:19
PROVIDERS: ATTEND Internal Medicine Gastroenterology
DX: Z09 Encounter for follow-up examination after completed treatment for conditions other than malignant neoplasm (principal)
CPT/HCPCS: 74018

== ENCOUNTER → 2020-03-13 | Outpatient (CLI) | payer MEDICARE ==
--- NOTE | 2020-03-16 15:12 | PE ---
Nuclear medicine PET CT HISTORY: CT 25.0, pancreatic carcinoma, initial Patient received 10.6 mCi F-18 FDG intravenously delayed scanning was performed from the skull base t o the mid thighs. Localization and attenuation correction CT scan was performed. Correlation to CT scan 02/17/2020 Chest and neck: No cervical or supraclavicular adenopathy. No suspicious uptake. There is no mediasti nal, axillary, or hilar adenopathy. No evidence of mass, there is no pleural or pericardial effusion. There is an aortic aneurysm. ABDOMEN: Pneumobilia is present. There is a stent present in the biliary system. No suspicious uptake . No retroperitoneal adenopathy. No evident liver mass. Abnormal density within the head of the pancr eas is vague, there is fullness present consistent with patient's history. There is no ascites. Osseous structures show no suspicious uptake. IMPRESSION: Indwelling biliary stent. No significant uptake evident at the level the head of the panc reas. Aortic aneurysm.
== END | disposition home or self-care (01) ==
LOC: RADPETMAIN 07:24
PROVIDERS: ATTEND Internal Medicine Hematology & Oncology
DX: C25.0 Malignant neoplasm of head of pancreas (principal); I71.9 Aortic aneurysm of unspecified site, without rupture; Z96.89 Presence of other specified functional implants
CPT/HCPCS: 78815; A9552

== ENCOUNTER 2020-03-22 06:23 | Day surgery (SDC) | payer MEDICARE ==
[2020-03-18 14:15] VITALS: BMI 24.9
[~2020-03-22 06:23] MED LIST: ACETAMINOPHEN TAB 500 MG TAB PO PRN; HEPARIN SODIUM,PORCINE 5,000 UNIT/ML 1 ML VIAL SQ PRN; Pre Op ABX Message 1 EACH MISC MISCELLANE ONE
[2020-03-22 06:54] VITALS: RESP 16
[2020-03-22] MEDS ORDERED: LIDOCAINE 1% (10MG/ML) FOR IV START INTRADERMA ONE (07:00)
[2020-03-22] MEDS ORDERED: LACTATED RINGERS 1,000 ML IV ONE (07:00)
[2020-03-22] MEDS ORDERED: PROPOFOL 10 MG/ML 20 ML VIAL IV ONE (07:52)
[2020-03-22] MEDS ORDERED: KETAMINE 10 MG/ML 20 ML VIAL ONE (07:52)
[2020-03-22] MEDS ORDERED: SODIUM CHLORIDE 0.9% 100 ML BAG ONE (07:52)
[2020-03-22] MEDS ORDERED: fentaNYL (PF) 50 MCG/ML 2 ML AMP ONE (07:52)
[2020-03-22] MEDS ORDERED: MIDAZOLAM 2 MG/2 ML VIAL ONE (07:52)
[2020-03-22] MEDS ORDERED: ceFAZolin 1,000 MG VIAL ONE (07:52)
[2020-03-22] MEDS ORDERED: SODIUM CHLORIDE 0.9% 50 ML IV ONE (08:05)
[2020-03-22] MEDS ORDERED: BUPIVACAINE-EPI 0.5%-1:200,000 10 ML VIAL SQ ONE ×2 (08:14)
[2020-03-22] MEDS ORDERED: HEPARIN SODIUM,PORCINE 100 UNIT/ML 5 ML VIAL IV ONE (08:14)
[2020-03-22 08:36] VITALS: TEMP 97
[2020-03-22] MEDS ORDERED: HYDROmorphone 0.5 MG/0.5 ML SYRINGE IVP ONE (08:37)
--- NOTE | 2020-03-22 08:42 | P.GSHP ---
History of Present Illness H&P Date: 03/22/20 Chief Complaint: Pancreatic cancer This a 65-year-old male who's recent diagnosed pancreas cancer. Patient presents today for Port-A-Cath insertion. Past Medical History Past Medical History: Coronary Artery Disease (CAD), Cancer, Hyperlipidemia, Hypertension, Myocardial Infarction (CA) Additional Past Medical History / Comment(s): pancreatic cancer Last Myocardial Infarction Date:: 03/03/2016 History of Any Multi-Drug Resistant Organisms: None Reported Past Surgical History: Heart Catheterization With Stent, Orthopedic Surgery, Tonsillectomy Additional Past Surgical History / Comment(s): left knee surgery Past Anesthesia/Blood Transfusion Reactions: Previous Problems w/ Anesthesia Additional Past Anesthesia/Blood Transfusion Reaction / Comment(s): took long time to wake up after knee surgery 1971 Date of Last Stent Placement:: 2016 Smoking Status: Former smoker - Past Family History Father Family Medical History: Renal Disease Additional Family Medical History / Comment(s): Father of renal failure at the age of 92. Mother Family Medical History: Cancer Additional Family Medical History / Comment(s): Mother in her 60's from some form of cancer that ended up in her lymph nodes. Medications and Allergies Home Medications Medication Instructions Recorded Confirmed Type Atorvastatin [Lipitor] 80 mg PO HS #30 tab 03/06/16 03/22/20 Rx Nitroglycerin Sl Tabs [Nitrostat] 0.4 mg SUBLINGUAL Q5M PRN #20 tab 03/06/16 03/22/20 Rx lisinopriL [Zestril] 2.5 mg PO DAILY #30 tab 03/06/16 03/22/20 Rx Metoprolol Succinate [Toprol Xl] 50 mg PO DAILY 05/31/18 03/22/20 History Aspirin [Adult Low Dose Aspirin EC] 81 mg PO DAILY 03/18/20 03/22/20 History amLODIPine BESYLATE [Norvasc] 2.5 mg PO DAILY 03/18/20 03/22/20 History traMADol HCL [Ultram] 50 mg PO DAILY PRN 03/18/20 03/22/20 History Sulfamethoxazole/Trimethoprim 1 each PO BID 03/22/20 03/22/20 History [Sulfamethoxazole-Tmp Ds Tablet] Allergies Allergy/AdvReac Type Severity Reaction Status Date / Time No Known Allergies Allergy Verified 03/18/20 14:04 Surgical - Exam Vital Signs Temp Pulse Resp BP Pulse Ox 99.1 F 112 H 16 111/73 96 03/22/20 06:48 03/22/20 06:48 03/22/20 06:48 03/22/20 06:48 03/22/20 06:48 - General well developed, well nourished, no distress - Eyes PERRL - ENT normal pinna - Neck no masses - Respiratory normal expansion - Cardiovascular Rhythm: regular - Abdomen Abdomen: soft, non tender Assessment and Plan Assessment: Pancreatic cancer. We'll perform Port-A-Cath insertion.
--- NOTE | 2020-03-22 08:44 | P.OP ---
Date of Procedure: 03/22/20 Preoperative Diagnosis: Pancreatic cancer Postoperative Diagnosis: Pancreatic cancer Procedure(s) Performed: Insertion of right subclavian Mediport Anesthesia: TIFFANY Surgeon: Noah Kaur Estimated Blood Loss (ml): 5 Pathology: none sent Condition: stable Disposition: PACU Description of Procedure: PROCEDURE: The patient was placed on the operating table in the supine position. She received MAC anesthetic. The [right] chest was prepped and draped in the usual sterile fashion. The skin underneath the right clavicle was anesthetized with 1% Xylocaine and using Seldinger technique, the right subclavian vein was cannulized. The wire was placed through the needle and positioned under fluoroscopy. Next, the needle was removed and the port site was anesthetized with 1% Xylocaine. Skin was incised with #15 blade and port pocket was made using blunt and sharp dissection. Following this the catheter was attached to the sport and the port was flushed. The port was positioned into the pocket site and was secured with 3-0 Vicryl suture. The catheter was then brought out through the wire site and then the dilator sheath was placed over the wire and the dilator and the wire were removed. The catheter was placed through the sheath and the sheath was removed. The port was flushed with hep-lock solution. Skin was closed with interrupted 3-0 Vicryl sutures. Steri-Strips were applied. The patient tolerated the procedure well. The patient was sent to recovery room for chest x-ray after the procedure.
--- NOTE | 2020-03-22 09:08 | XR ---
EXAMINATION TYPE: XR chest 1V portable DATE OF EXAM: 03/22/2020 Comparison: 05/31/2018 Clinical History: 65-year-old male post surgery Central line placement Findings: Right anterior chest wall injection port with subclavian access and catheter tip at the upper SVC lev el. Heart normal size. Aorta and pulmonary vasculature within normal limits. No consolidation or pleu ral effusion. Impression: No acute cardiopulmonary process. Right-sided injection port with subclavian access and catheter tip at the upper SVC.
--- NOTE | 2020-03-22 09:09 | FL ---
EXAMINATION TYPE: FL guided central line placement DATE OF EXAM: 03/22/2020 FLUOROSCOPY Fluoroscopy time of 6 seconds was used during Port-A-Cath insertion with C-arm. 1 image/s document/s the procedure.
[2020-03-22 09:23] VITALS: BP 119/67; PULSE 81
== END 2020-03-22 09:43 | disposition home or self-care (01) ==
LOC: OR 06:23
PROVIDERS: ATTEND Surgery
DX: C25.9 Malignant neoplasm of pancreas, unspecified (principal); I25.10 Atherosclerotic heart disease of native coronary artery without angina pectoris; I10 Essential (primary) hypertension; E78.5 Hyperlipidemia, unspecified; I25.2 Old myocardial infarction; Z95.5 Presence of coronary angioplasty implant and graft; Z98.890 Other specified postprocedural states; Z90.89 Acquired absence of other organs; L03.119 Cellulitis of unspecified part of limb; Z87.891 Personal history of nicotine dependence; Z84.1 Family history of disorders of kidney and ureter; Z80.7 Family history of other malignant neoplasms of lymphoid, hematopoietic and related tissues; Z86.19 Personal history of other infectious and parasitic diseases; Z79.82 Long term (current) use of aspirin; Z79.899 Other long term (current) drug therapy
CPT/HCPCS: 77001; 71045; 36561; C1788; J2250; J1644; J1642; J0690; J3010; J2704; J1170

== ENCOUNTER 2020-03-25 17:02 | Emergency (ER) | payer MEDICARE ==
[2020-03-25 17:44] LABS: Basophils % (A) 0 %; Eosinophils # (A) 0.1 k/uL (0-0.7); Eosinophils % (A) 1 %; HCT 24.1 % (39.0-53.0); HGB 8.1 gm/dL (13.0-17.5); Lymphocytes # (A) 1.6 k/uL (1.0-4.8); Lymphocytes % (A) 14 %; MCH 30.5 pg (25.0-35.0); MCHC 33.8 g/dL (31.0-37.0); MCV 90.3 fL (80.0-100.0); Mean Platelet Volume 7.5; Monocytes # (A) 0.8 k/uL (0-1.0); Monocytes % (A) 7 %; Neutrophils # (A) 8.4 k/uL (1.3-7.7); Neutrophils % (A) 76 %; Platelet Count 351 k/uL (150-450); RBC 2.67 m/uL (4.30-5.90); RDW 12.8 % (11.5-15.5); WBC 11.1 k/uL (3.8-10.6)
--- NOTE | 2020-03-25 17:54 | ED ---
General Adult HPI - General Chief complaint: Recheck/Abnormal Lab/Rx Stated complaint: Port issues Time Seen by Provider: 03/25/20 17:14 Source: patient, RN notes reviewed, old records reviewed Mode of arrival: ambulatory Limitations: no limitations - History of Present Illness Initial comments: 65-year-old male who had been transferred from the oncology center for bruising and suspected acquired coagulopathy. Patient was diagnosed with pancreatic ca ncer he has not yet started chemotherapy. He had a port placed in the right chest wall which is been noted to have increasing swelling, and ecchymosis. Additionally he has had easy bruising throughout. He had elevated PTT. He has no previous history of factor V deficiency or bleeding issues. The build technician oncologist requested that the patient be transfer to higher level of care. His pancreatic cancer diagnosis was made at [facility]. - Related Data Home Medications Medication Instructions Recorded Confirmed Metoprolol Succinate [Toprol Xl] 50 mg PO DAILY 05/31/18 03/22/20 Aspirin [Adult Low Dose Aspirin EC] 81 mg PO DAILY 03/18/20 03/22/20 amLODIPine BESYLATE [Norvasc] 2.5 mg PO DAILY 03/18/20 03/22/20 traMADol HCL [Ultram] 50 mg PO DAILY PRN 03/18/20 03/22/20 Sulfamethoxazole/Trimethoprim 1 each PO BID 03/22/20 03/22/20 [Sulfamethoxazole-Tmp Ds Tablet] Previous Rx's Medication Instructions Recorded Atorvastatin [Lipitor] 80 mg PO HS #30 tab 03/06/16 Nitroglycerin Sl Tabs [Nitrostat] 0.4 mg SUBLINGUAL Q5M PRN #20 tab 03/06/16 lisinopriL [Zestril] 2.5 mg PO DAILY #30 tab 03/06/16 Allergies Allergy/AdvReac Type Severity Reaction Status Date / Time No Known Allergies Allergy Verified 03/25/20 17:09 Review of Systems ROS Statement: Those systems with pertinent positive or pertinent negative responses have been documented in the HPI. ROS Other: All systems not noted in ROS Statement are negative. Past Medical History Past Medical History: Coronary Artery Disease (CAD), Cancer, Hyperlipidemia, Hypertension, Myocardial Infarction ([place]) Additional Past Medical History / Comment(s): pancreatic cancer Last Myocardial Infarction Date:: 03/03/2016 History of Any Multi-Drug Resistant Organisms: None Reported Past Surgical History: Heart Catheterization With Stent, Orthopedic Surgery, Tonsillectomy Additional Past Surgical History / Comment(s): left knee surgery Past Anesthesia/Blood Transfusion Reactions: Previous Problems w/ Anesthesia Additional Past Anesthesia/Blood Transfusion Reaction / Comment(s): took long time to wake up after knee surgery 1971 Date of Last Stent Placement:: 2016 Past Psychological History: No Psychological Hx Reported Smoking Status: Former smoker Past Alcohol Use History: Occasional Past Drug Use History: Marijuana - Past Family History Father Family Medical History: Renal Disease Additional Family Medical History / Comment(s): Father of renal failure at the age of 92. Mother Family Medical History: Cancer Additional Family Medical History / Comment(s): Mother in her 60's from some form of cancer that ended up in her lymph nodes. General Exam Limitations: no limitations General appearance: alert, in no apparent distress Head exam: Present: atraumatic, normocephalic Eye exam: Present: normal appearance, PERRL ENT exam: Present: mucous membranes dry Neck exam: Present: normal inspection. Absent: tenderness, meningismus Respiratory exam: Present: normal lung sounds bilaterally, chest wall tenderness (. Site is swollen, suspect underlying hematoma with surrounding ecchymosis, this covers the majority of the chest. There is no warmth. No purulence.). Absent: respiratory distress, wheezes Cardiovascular Exam: Present: regular rate, normal rhythm GI/Abdominal exam: Present: soft. Absent: distended, tenderness Extremities exam: Present: normal inspection, normal capillary refill. Absent: pedal edema Neurological exam: Present: alert, oriented X3, CN II-XII intact. Absent: motor sensory deficit Psychiatric exam: Present: normal affect, normal mood Skin exam: Present: warm, other (Patient has significant ecchymosis, throughout, most prominent in the abdomen, chest, the bottom of his right foot, he posterior left knee, right buttock) Course Vital Signs 03/25/20 03/25/20 17:04 18:28 Temperature 98.4 F Pulse Rate 103 H 96 Respiratory 18 20 Rate Blood Pressure 93/51 123/75 O2 Sat by Pulse 98 100 Oximetry - Reevaluation(s) Reevaluation #1: 03/25/20 17:35 This is discussed with Dr. Moffett prior to arrival and with Mikayla covering for hematology oncology, does recommend DDAVP be administered. Reevaluation #2: 03/25/20 18:00 I did discuss case second time with Mikayla covering for hematology, this time recommended that we transfuse 1 unit of blood as well as kSentra Reevaluation #3: 03/25/20 19:34 I did discuss case with covering for the ICU at [facility]. Will accept transfer. Patient currently awaiting bed. EKG Findings - EKG Comments: EKG Findings:: EKG: Normal sinus rhythm, right bundle branch block, rate of 92, TN interval 148, QRS duration 122, QTC 469, no ST segment elevation. Medical Decision Making - Medical Decision Making 65-year-old male presenting with cutaneous breathing, chest wall hematoma, elevated PTT. His PTT was in the 70s. He is not on any anticoagulant. He is taking 81 mg of aspirin although he is only taking this once in the past one week. Laboratory studies obtained, hemoglobin is 8.1, most recent for comparison was at the beginning of February is 13.6. He has an elevated lactate at 5.3 which I suspect is from hypoperfusion secondary to acute blood loss anemia. I did not fluid resuscitate this patient in the setting of a coagulopathy. He was transfused one unit of packed RBCs. He was started on DDAVP and case kSentra at the recommendation of hematology. Additionally started on Protonix secondary to melanotic stool. I discussed case with Damian Brown, Dr. Porter. The physician home based assistant Mikayla who is covering for hematology and is familiar with this patient, phone number: [phone] - Lab Data Result diagrams: 03/25/20 17:34 03/25/20 17:34 Lab Results 03/25/20 03/25/20 03/25/20 Range/Units 17:34 17:34 17:34 WBC 11.1 H (3.8-10.6) k/uL RBC 2.67 L (4.30-5.90) m/uL Hgb 8.1 L (13.0-17.5) gm/dL Hct 24.1 L (39.0-53.0) % MCV 90.3 (80.0-100.0) fL MCH 30.5 (25.0-35.0) pg MCHC 33.8 (31.0-37.0) g/dL RDW 12.8 (11.5-15.5) % Plt Count 351 (150-450) k/uL MPV 7.5 Neutrophils % 76 % Lymphocytes % 14 % Monocytes % 7 % Eosinophils % 1 % Basophils % 0 % Neutrophils # 8.4 H (1.3-7.7) k/uL Lymphocytes # 1.6 (1.0-4.8) k/uL Monocytes # 0.8 (0-1.0) k/uL Eosinophils # 0.1 (0-0.7) k/uL Basophils # 0.0 (0-0.2) k/uL PT 10.0 (9.0-12.0) sec INR 1.0 (<1.2) APTT 49.0 H (22.0-30.0) sec Sodium 124 L (137-145) mmol/L Potassium 5.2 H (3.5-5.1) mmol/L Chloride 95 L (98-107) mmol/L Carbon Dioxide 19 L (22-30) mmol/L Anion Gap 10 mmol/L BUN 24 H (9-20) mg/dL Creatinine 0.90 (0.66-1.25) mg/dL Est GFR (CKD-EPI)AfAm >90 (>60 ml/min/1.73 sqM) Est GFR (CKD-EPI)NonAf 89 (>60 ml/min/1.73 sqM) Glucose 273 H (74-99) mg/dL Lactic Ac Sepsis Rflx Plasma Lactic Acid [place] (0.7-2.0) mmol/L Calcium 8.8 (8.4-10.2) mg/dL Magnesium 1.9 (1.6-2.3) mg/dL Total Bilirubin 1.4 H (0.2-1.3) mg/dL AST 71 H (17-59) U/L ALT 60 H (4-49) U/L Alkaline Phosphatase 226 H (38-126) U/L Total Protein 6.9 (6.3-8.2) g/dL Albumin 3.7 (3.5-5.0) g/dL Coronavirus (PCR) (Not Detectd) Blood Type Blood Type Confirm Blood Type Recheck Bld Type Recheck Status Antibody Screen Crossmatch Spec Expiration Date 03/25/20 03/25/2021 Range/Units 17:34 17:34 18:04 WBC (3.8-10.6) k/uL RBC (4.30-5.90) m/uL Hgb (13.0-17.5) gm/dL Hct (39.0-53.0) % MCV (80.0-100.0) fL MCH (25.0-35.0) pg MCHC (31.0-37.0) g/dL RDW (11.5-15.5) % Plt Count (150-450) k/uL MPV Neutrophils % % Lymphocytes % % Monocytes % % Eosinophils % % Basophils % % Neutrophils # (1.3-7.7) k/uL Lymphocytes # (1.0-4.8) k/uL Monocytes # (0-1.0) k/uL Eosinophils # (0-0.7) k/uL Basophils # (0-0.2) k/uL PT (9.0-12.0) sec INR (<1.2) APTT (22.0-30.0) sec Sodium (137-145) mmol/L Potassium (3.5-5.1) mmol/L Chloride (98-107) mmol/L Carbon Dioxide (22-30) mmol/L Anion Gap mmol/L BUN (9-20) mg/dL Creatinine (0.66-1.25) mg/dL Est GFR (CKD-EPI)AfAm (>60 ml/min/1.73 sqM) Est GFR (CKD-EPI)NonAf (>60 ml/min/1.73 sqM) Glucose (74-99) mg/dL Lactic Ac Sepsis Rflx Y Plasma Lactic Acid [place] 5.3 H* (0.7-2.0) mmol/L Calcium (8.4-10.2) mg/dL Magnesium (1.6-2.3) mg/dL Total Bilirubin (0.2-1.3) mg/dL AST (17-59) U/L ALT (4-49) U/L Alkaline Phosphatase (38-126) U/L Total Protein (6.3-8.2) g/dL Albumin (3.5-5.0) g/dL Coronavirus (PCR) (Not Detectd) Blood Type A Positive Blood Type Confirm Blood Type Recheck No Previous Record Bld Type Recheck Status CABO Indicated Antibody Screen NEGATIVE Crossmatch See Detail Spec Expiration Date 03/28/2020 - 233303/25/20 03/25/20 Range/Units 18:30 18:31 WBC (3.8-10.6) k/uL RBC (4.30-5.90) m/uL Hgb (13.0-17.5) gm/dL Hct (39.0-53.0) % MCV (80.0-100.0) fL MCH (25.0-35.0) pg MCHC (31.0-37.0) g/dL RDW (11.5-15.5) % Plt Count (150-450) k/uL MPV Neutrophils % % Lymphocytes % % Monocytes % % Eosinophils % % Basophils % % Neutrophils # (1.3-7.7) k/uL Lymphocytes # (1.0-4.8) k/uL Monocytes # (0-1.0) k/uL Eosinophils # (0-0.7) k/uL Basophils # (0-0.2) k/uL PT (9.0-12.0) sec INR (<1.2) APTT (22.0-30.0) sec Sodium (137-145) mmol/L Potassium (3.5-5.1) mmol/L Chloride (98-107) mmol/L Carbon Dioxide (22-30) mmol/L Anion Gap mmol/L BUN (9-20) mg/dL Creatinine (0.66-1.25) mg/dL Est GFR (CKD-EPI)AfAm (>60 ml/min/1.73 sqM) Est GFR (CKD-EPI)NonAf (>60 ml/min/1.73 sqM) Glucose (74-99) mg/dL Lactic Ac Sepsis Rflx Plasma Lactic Acid [place] (0.7-2.0) mmol/L Calcium (8.4-10.2) mg/dL Magnesium (1.6-2.3) mg/dL Total Bilirubin (0.2-1.3) mg/dL AST (17-59) U/L ALT (4-49) U/L Alkaline Phosphatase (38-126) U/L Total Protein (6.3-8.2) g/dL Albumin (3.5-5.0) g/dL Coronavirus (PCR) Not Detected (Not Detectd) Blood Type Blood Type Confirm A Positive Blood Type Recheck Bld Type Recheck Status Antibody Screen Crossmatch Spec Expiration Date Critical Care Time Critical Care Time: Yes Total Critical Care Time: 35 Disposition Clinical Impression: Acute blood loss anemia, GI bleed, Coagulopathy, Lactic acidosis Disposition: OTHER INSTITUTION NOT DEFINED Condition: Serious Is patient prescribed a controlled substance at d/c from ED?: No Referrals: Garrett Bolton DO [Primary Care Provider] - 1-2 days Time of Disposition: 18:32 - Out of Hospital Transfer - Req. Specs Out of Hospital Transfer - Requested Specifics: Medical ICU (Transfer to [facility])
[2020-03-25 17:55] LABS: ALT 60 U/L (4-49); AST 71 U/L (17-59); African American GFR (CKD) >90 (>60 ml/min/1.73 sqM); Albumin 3.7 g/dL (3.5-5.0); Alkaline Phosphatase 226 U/L (38-126); Anion Gap 10 mmol/L; Blood Urea Nitrogen 24 mg/dL (9-20); Calcium 8.8 mg/dL (8.4-10.2); Carbon Dioxide 19 mmol/L (22-30); Chloride 95 mmol/L (98-107); Glucose 273 mg/dL (74-99); Magnesium 1.9 mg/dL (1.6-2.3); Non-African American GFR(CKD) 89 (>60 ml/min/1.73 sqM); Sodium 124 mmol/L (137-145); Total Bilirubin 1.4 mg/dL (0.2-1.3); Total Protein 6.9 g/dL (6.3-8.2)
[2020-03-25] MEDS ORDERED: DESMOPRESSIN ACETATE 22 MCG in SODIUM CHLORIDE 0.9% 50 ML IVPB ONE (18:00)
[2020-03-25] MEDS ORDERED: PANTOPRAZOLE 40 MG/10 ML VIAL IVP STA (18:01)
[2020-03-25 18:06] LABS: Potassium 5.2 mmol/L (3.5-5.1)
[2020-03-25] MEDS ORDERED: Kcentra PER PHARMACY 1 EACH MISC MISCELLANE PRN (18:11)
[2020-03-25] MEDS ORDERED: HUMAN PROTHROMBIN COMPLX 500 UNIT/16 ML VIAL IV ONE (18:30)
[2020-03-25] MEDS ORDERED: HUMAN PROTHROMBIN COMPLX IV ONE (18:30)
[2020-03-25] MEDS ORDERED: HYDROmorphone 0.5 MG/0.5 ML SYRINGE IVP STA ×2 (18:49→23:27)
[2020-03-26] MEDS ORDERED: HYDROmorphone 0.5 MG/0.5 ML SYRINGE IVP PRN (05:29)
[2020-03-26 05:51] VITALS: BP 105/67; PULSE 90; RESP 18; TEMP 98.9
== END 2020-03-26 06:02 | disposition other institution (70) ==
LOC: EC 17:02
DX: D62 Acute posthemorrhagic anemia (principal); D68.9 Coagulation defect, unspecified; E87.2 Acidosis; K92.2 Gastrointestinal hemorrhage, unspecified; I25.10 Atherosclerotic heart disease of native coronary artery without angina pectoris; I10 Essential (primary) hypertension; E78.5 Hyperlipidemia, unspecified; I25.2 Old myocardial infarction; Z79.82 Long term (current) use of aspirin; Z79.899 Other long term (current) drug therapy; Z87.891 Personal history of nicotine dependence; Z95.5 Presence of coronary angioplasty implant and graft; Z85.07 Personal history of malignant neoplasm of pancreas
CPT/HCPCS: 99291 ×2; 36430 ×2; 96365 ×2; 96367 ×2; 96375 ×3; 96376 ×2; 36415; 93005; 86900; 86901; 80053; 83605; 83735; 85025; 85610; 85730; 86850; 86920; 87040; 87635; P9016; C9132; C9113; J2597; J1170 ×2

== ENCOUNTER 2020-05-14 19:41 | Emergency (ER) | payer MEDICARE ==
[2020-05-14 20:07] VITALS: TEMP 98.7
[2020-05-14 21:03] LABS: HGB 12.7 gm/dL (13.0-17.5); MCH 34.1 pg (25.0-35.0); MCHC 36.2 g/dL (31.0-37.0); MCV 94.1 fL (80.0-100.0); Platelet Count 171 k/uL (150-450); RBC 3.71 m/uL (4.30-5.90); RDW 13.8 % (11.5-15.5); WBC 9.1 k/uL (3.8-10.6)
[2020-05-14 21:13] LABS: ALT 101 U/L (4-49); AST 69 U/L (17-59); African American GFR (CKD) >90 (>60 ml/min/1.73 sqM); Albumin 3.2 g/dL (3.5-5.0); Alkaline Phosphatase 605 U/L (38-126); Anion Gap 8 mmol/L; Blood Urea Nitrogen 20 mg/dL (9-20); Calcium 8.8 mg/dL (8.4-10.2); Carbon Dioxide 23 mmol/L (22-30); Chloride 98 mmol/L (98-107); Glucose 197 mg/dL (74-99); Magnesium 1.3 mg/dL (1.6-2.3); Non-African American GFR(CKD) >90 (>60 ml/min/1.73 sqM); Potassium 4.2 mmol/L (3.5-5.1); Sodium 129 mmol/L (137-145); Total Bilirubin 0.6 mg/dL (0.2-1.3); Total Protein 5.7 g/dL (6.3-8.2)
[2020-05-14 21:14] LABS: Appearance,Urine Clear (Clear); Bacteria,Urine Few /hpf; Bilirubin,Urine Negative (Negative); Blood,Urine Negative (Negative); Color,Urine Light Yellow; Glucose,Urine (UA) Negative (Negative); Ketones,Urine Negative (Negative); Leukocyte Esterase,Urine Trace (Negative); Mucus,Urine Rare /hpf; Nitrite,Urine Negative (Negative); PH, Urine 5.5 (5.0-8.0); Protein,Urine Negative (Negative); RBC,Urine <1 /hpf (0-5); Specific Gravity,Urine 1.006 (1.001-1.035); Urobilinogen,Urine <2.0 mg/dL (<2.0); WBC,Urine 6 /hpf (0-5)
--- NOTE | 2020-05-14 21:15 | XR ---
EXAMINATION TYPE: XR chest 2V DATE OF EXAM: 05/14/2020 COMPARISON: 03/22/2020 HISTORY: Fever TECHNIQUE: FINDINGS: Heart and mediastinum are normal. Lungs are clear. Diaphragm is normal. There is right cent ral venous catheter with tip in the superior vena cava. IMPRESSION: Normal chest. No adverse change.
[2020-05-14 21:19] LABS: Band Neutrophils % 6 %; Lymphocytes # (M) 0.46 k/uL (1.0-4.8); Metamyelocytes # (M) 0.09 k/uL (0); Metamyelocytes % 1 %; Monocytes # (M) 1.18 k/uL (0-1.0); Neutrophils % (M) 75 %; Nucleated Red Blood Cells 0 /100 WBC (0-0); Total Cells Counted 100
[2020-05-14] MEDS ORDERED: LEVOFLOXACIN 750 MG TAB PO STA (21:56)
--- NOTE | 2020-05-14 21:59 | ED ---
Fever HPI - General Chief Complaint: Fever Stated Complaint: Fever Time Seen by Provider: 05/14/20 20:31 Source: patient, RN notes reviewed Mode of arrival: ambulatory Limitations: no limitations - History of Present Illness Initial Comments: This a 65-year-old male with a history of pancreatic cancer who is status post chemo last month who presents today with the onset of a fever today was got up to 102.1H have some chills slight rhinorrhea no cough no sore throat dysuria or other symptoms. His last chemo was on May 03. He has no complaints of any other issues at this time however. 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 No recent bruising or bleeding reported. MD Complaint: fever - Related Data Home Medications Medication Instructions Recorded Confirmed Metoprolol Succinate [Toprol Xl] 50 mg PO DAILY 05/31/18 03/22/20 Aspirin [Adult Low Dose Aspirin EC] 81 mg PO DAILY 03/18/20 03/22/20 amLODIPine BESYLATE [Norvasc] 2.5 mg PO DAILY 03/18/20 03/22/20 traMADol HCL [Ultram] 50 mg PO DAILY PRN 03/18/20 03/22/20 Sulfamethoxazole/Trimethoprim 1 each PO BID 03/22/20 03/22/20 [Sulfamethoxazole-Tmp Ds Tablet] Previous Rx's Medication Instructions Recorded Atorvastatin [Lipitor] 80 mg PO HS #30 tab 03/06/16 Nitroglycerin Sl Tabs [Nitrostat] 0.4 mg SUBLINGUAL Q5M PRN #20 tab 03/06/16 lisinopriL [Zestril] 2.5 mg PO DAILY #30 tab 03/06/16 Allergies Allergy/AdvReac Type Severity Reaction Status Date / Time No Known Allergies Allergy Verified 05/14/20 20:06 Review of Systems ROS Statement: Those systems with pertinent positive or pertinent negative responses have been documented in the HPI. ROS Other: All systems not noted in ROS Statement are negative. Past Medical History Past Medical History: Coronary Artery Disease (CAD), Cancer, Hyperlipidemia, Hypertension, Myocardial Infarction ([place]) Additional Past Medical History / Comment(s): pancreatic cancer Last Myocardial Infarction Date:: 03/03/2016 History of Any Multi-Drug Resistant Organisms: None Reported Past Surgical History: Heart Catheterization With Stent, Orthopedic Surgery, Tonsillectomy Additional Past Surgical History / Comment(s): left knee surgery Past Anesthesia/Blood Transfusion Reactions: Previous Problems w/ Anesthesia Additional Past Anesthesia/Blood Transfusion Reaction / Comment(s): took long time to wake up after knee surgery 1971 Date of Last Stent Placement:: 2016 Past Psychological History: No Psychological Hx Reported Smoking Status: Former smoker Past Alcohol Use History: Occasional Past Drug Use History: Marijuana - Past Family History Father Family Medical History: Renal Disease Additional Family Medical History / Comment(s): Father of renal failure at the age of 92. Mother Family Medical History: Cancer Additional Family Medical History / Comment(s): Mother in her 60's from some form of cancer that ended up in her lymph nodes. General Exam - General Exam Comments Initial Comments: This is a well-developed well-nourished awake alert oriented 3 male Limitations: no limitations General appearance: alert, in no apparent distress Head exam: Present: atraumatic, normocephalic, normal inspection Eye exam: Present: normal appearance, PERRL, EOMI. Absent: scleral icterus, conjunctival injection, periorbital swelling ENT exam: Present: normal exam, mucous membranes moist Neck exam: Present: normal inspection. Absent: tenderness, meningismus, lymphadenopathy Respiratory exam: Present: normal lung sounds bilaterally. Absent: respiratory distress, wheezes, rales, rhonchi, stridor Cardiovascular Exam: Present: regular rate, normal rhythm, normal heart sounds. Absent: systolic murmur, diastolic murmur, rubs, gallop, clicks GI/Abdominal exam: Present: soft, normal bowel sounds. Absent: distended, tenderness, guarding, rebound, rigid Extremities exam: Present: normal inspection, full ROM, normal capillary refill. Absent: tenderness, pedal edema, joint swelling, calf tenderness Back exam: Present: normal inspection Neurological exam: Present: alert, oriented X3, CN II-XII intact Psychiatric exam: Present: normal affect, normal mood Skin exam: Present: warm, dry, intact, normal color. Absent: rash Course Vital Signs 05/14/20 20:03 Temperature 98.7 F Pulse Rate 98 Respiratory 18 Rate Blood Pressure 110/69 O2 Sat by Pulse 98 Oximetry Medical Decision Making - Medical Decision Making I did discuss findings with the patient and his as well as with Dr. Poole and Mikayla Connelly patient will be placed on Levaquin 750 mg per day a PTT is pending at this time. Patient was Covid negative as well as without evidence of neutropenia. Will follow-up next week as planned today being Sunday. He is return if any problems. - Lab Data Result diagrams: 05/14/20 20:39 05/14/20 20:35 Lab Results 05/14/20 05/14/20 05/14/20 Range/Units 20:35 20:35 20:35 WBC (3.8-10.6) k/uL RBC (4.30-5.90) m/uL Hgb (13.0-17.5) gm/dL Hct (39.0-53.0) % MCV (80.0-100.0) fL MCH (25.0-35.0) pg MCHC (31.0-37.0) g/dL RDW (11.5-15.5) % Plt Count (150-450) k/uL MPV Neutrophils % (Manual) % Band Neuts % (Manual) % Lymphocytes % (Manual) % Monocytes % (Manual) % Metamyelocytes % % Neutrophils # (Manual) (1.3-7.7) k/uL Lymphocytes # (Manual) (1.0-4.8) k/uL Monocytes # (Manual) (0-1.0) k/uL Metamyelocytes # (Man) (0) k/uL Nucleated RBCs (0-0) /100 WBC Manual Slide Review RBC Morphology Sodium 129 L (137-145) mmol/L Potassium 4.2 (3.5-5.1) mmol/L Chloride 98 (98-107) mmol/L Carbon Dioxide 23 (22-30) mmol/L Anion Gap 8 mmol/L BUN 20 (9-20) mg/dL Creatinine 0.61 L (0.66-1.25) mg/dL Est GFR (CKD-EPI)AfAm >90 (>60 ml/min/1.73 sqM) Est GFR (CKD-EPI)NonAf >90 (>60 ml/min/1.73 sqM) Glucose 197 H (74-99) mg/dL Plasma Lactic Acid [place]osi 1.8 (0.7-2.0) mmol/L Calcium 8.8 (8.4-10.2) mg/dL Magnesium 1.3 L (1.6-2.3) mg/dL Total Bilirubin 0.6 (0.2-1.3) mg/dL AST 69 H (17-59) U/L ALT 101 H (4-49) U/L Alkaline Phosphatase 605 H (38-126) U/L Total Protein 5.7 L (6.3-8.2) g/dL Albumin 3.2 L (3.5-5.0) g/dL Urine Color Urine Appearance (Clear) Urine pH (5.0-8.0) Ur Specific [place] (1.001-1.035) Urine Protein (Negative) Urine Glucose (UA) (Negative) Urine Ketones (Negative) Urine Blood (Negative) Urine Nitrite (Negative) Urine Bilirubin (Negative) Urine Urobilinogen (<2.0) mg/dL Ur Leukocyte Esterase (Negative) Urine RBC (0-5) /hpf Urine WBC (0-5) /hpf Urine Bacteria (None) /hpf Urine Mucus (None) /hpf Coronavirus (PCR) Not Detected (Not Detectd) 05/14/20 05/14/20 Range/Units 20:39 21:07 WBC 9.1 (3.8-10.6) k/uL RBC 3.71 L (4.30-5.90) m/uL Hgb 12.7 L D (13.0-17.5) gm/dL Hct 35.0 L (39.0-53.0) % MCV 94.1 (80.0-100.0) fL MCH 34.1 (25.0-35.0) pg MCHC 36.2 (31.0-37.0) g/dL RDW 13.8 (11.5-15.5) % Plt Count 171 D (150-450) k/uL MPV 7.0 Neutrophils % (Manual) 75 % Band Neuts % (Manual) 6 % Lymphocytes % (Manual) 5 % Monocytes % (Manual) 13 % Metamyelocytes % 1 % Neutrophils # (Manual) 7.30 (1.3-7.7) k/uL Lymphocytes # (Manual) 0.46 L (1.0-4.8) k/uL Monocytes # (Manual) 1.18 H (0-1.0) k/uL Metamyelocytes # (Man) 0.09 H (0) k/uL Nucleated RBCs 0 (0-0) /100 WBC Manual Slide Review Performed RBC Morphology Normal Sodium (137-145) mmol/L Potassium (3.5-5.1) mmol/L Chloride (98-107) mmol/L Carbon Dioxide (22-30) mmol/L Anion Gap mmol/L BUN (9-20) mg/dL Creatinine (0.66-1.25) mg/dL Est GFR (CKD-EPI)AfAm (>60 ml/min/1.73 sqM) Est GFR (CKD-EPI)NonAf (>60 ml/min/1.73 sqM) Glucose (74-99) mg/dL Plasma Lactic Acid [place] (0.7-2.0) mmol/L Calcium (8.4-10.2) mg/dL Magnesium (1.6-2.3) mg/dL Total Bilirubin (0.2-1.3) mg/dL AST (17-59) U/L ALT (4-49) U/L Alkaline Phosphatase (38-126) U/L Total Protein (6.3-8.2) g/dL Albumin (3.5-5.0) g/dL Urine Color Light Yellow Urine Appearance Clear (Clear) Urine pH 5.5 (5.0-8.0) Ur Specific [place] 1.006 (1.001-1.035) Urine Protein Negative (Negative) Urine Glucose (UA) Negative (Negative) Urine Ketones Negative (Negative) Urine Blood Negative (Negative) Urine Nitrite Negative (Negative) Urine Bilirubin Negative (Negative) Urine Urobilinogen <2.0 (<2.0) mg/dL Ur Leukocyte Esterase Trace H (Negative) Urine RBC <1 (0-5) /hpf Urine WBC 6 H (0-5) /hpf Urine Bacteria Few H (None) /hpf Urine Mucus Rare H (None) /hpf Coronavirus (PCR) (Not Detectd) - Radiology Data Radiology results: report reviewed (Imaging reviewed no acute findings.), image reviewed Disposition Clinical Impression: Febrile illness, acute, History of pancreatic cancer Disposition: HOME SELF-CARE Condition: Good Instructions (If sedation given, give patient instructions): Fever in Adults (ED) Is patient prescribed a controlled substance at d/c from ED?: No Referrals: Garrett Bolton DO [Primary Care Provider] - 1-2 days
[2020-05-14 22:28] VITALS: BP 117/86; PULSE 76; RESP 16
== END 2020-05-14 22:28 | disposition home or self-care (01) ==
LOC: EC 19:41
DX: R50.9 Fever, unspecified (principal); R09.89 Other specified symptoms and signs involving the circulatory and respiratory systems; I25.10 Atherosclerotic heart disease of native coronary artery without angina pectoris; E78.5 Hyperlipidemia, unspecified; I10 Essential (primary) hypertension; I25.2 Old myocardial infarction; Z20.822 Contact with and (suspected) exposure to COVID-19; Z85.07 Personal history of malignant neoplasm of pancreas; Z87.891 Personal history of nicotine dependence; Z79.82 Long term (current) use of aspirin
CPT/HCPCS: 36415; 71046; 80053; 81001; 83605; 83735; 85025; 85730; 87040; 87635; 99283

== ENCOUNTER 2020-08-13 | Emergency (ER) | payer MEDICARE | END 2020-08-13 21:06 | disposition home or self-care (01) | CPT/HCPCS: 36415; 74018; 76705; 80053; 81003; 82150; 83690; 85025; 85610; 85730; 99284 ==

== ENCOUNTER → 2020-08-19 | Outpatient (CLI) | payer MEDICARE | END | disposition home or self-care (01) ==

== ENCOUNTER → 2020-10-22 | Outpatient (CLI) | payer MEDICARE ==
--- NOTE | 2020-10-22 13:46 | CT ---
EXAMINATION TYPE: CT abdomen pelvis w con DATE OF EXAM: 10/22/2020 COMPARISON: HISTORY: Pancreatic cancer. CT DLP: 463.4 mGycm Automated exposure control for dose reduction was used. CONTRAST: CT scan of the abdomen pelvis is performed with IV Contrast, patient injected with 100ml mL of Isovue 300. FINDINGS- LUNG BASES- No significant abnormality is appreciated. LIVER/GB-intrahepatic ductal dilation noted. Biliary stent noted. No gallstones. Hyperdense areas see n in the adjacent to gallbladder fossa. Nonspecific measuring 7 mm.. PANCREAS-there is pancreatic ductal dilation and evidence of biliary stent. Fullness in the pancreati c head stable.. SPLEEN- No gross abnormality is seen. ADRENALS- No gross abnormality is seen. KIDNEYS/BLADDER-no hydronephrosis. Simple appearing left renal cyst.. BOWEL-gas pattern nonspecific with no obstruction. Diverticulosis of the colon. Small hiatal hernia. Retained fecal debris.. LYMPH NODES-there is retroperitoneal lymphadenopathy with the largest node measuring a short axis of 1.2 cm OSSEOUS STRUCTURES-up atrophic and degenerative changes spine with severe changes L4-L5.. OTHER- prostate is prominent. IMPRESSION- 1. Biliary ductal dilation intrahepatically with biliary stent noted in position. There remains vague prominence of the pancreatic head compatible with the patient's history of previous neoplasm. Pancre atic ductal dilation persists. 2. 7 mm area of hyperdensity seen within the liver adjacent to gallbladder fossa to small to blanche rize. May represent a flash hemangioma for an area of fatty sparing. 3. There is left intraperitoneal and periaortic lymphadenopathy measuring short axis of 1.2 cm not de finitively seen on recent PET scan. 4. Prostate hypertrophy.
== END | disposition home or self-care (01) ==
LOC: RADCTMAIN 11:22
PROVIDERS: ATTEND Internal Medicine Hematology & Oncology
DX: C25.9 Malignant neoplasm of pancreas, unspecified (principal); K83.8 Other specified diseases of biliary tract; N40.0 Benign prostatic hyperplasia without lower urinary tract symptoms
CPT/HCPCS: 74177; Q9967

== ENCOUNTER → 2020-11-26 | Outpatient (CLI) | payer MEDICARE ==
--- NOTE | 2020-12-01 15:33 | PE ---
Nuclear medicine PET/CT HISTORY: C25.0 CA OF PANCREAS, subsequent Patient received 10.6 mCi F-18 FDG intravenously in delayed scanning was performed from the skull bas e to the mid thighs. Localization and attenuation correction CT scan was performed. Correlation to prior CT 10/22/2020, nuclear medicine PET/CT 03/13/2020 Chest and neck: There is no evident cervical or supraclavicular adenopathy. There is a port present i n the right pectoral region and coursing via right subclavian approach cyst at the tip is in the supe rior vena cava. There is no mediastinal, axillary, or hilar adenopathy. There are dense coronary david ry calcifications, possible coronary stent. No pleural or pericardial effusion. No evident lung mass. No suspicious hypermetabolic uptake. Aortic aneurysm again noted, ascending aorta measuring 4.5 cm. ABDOMEN: There is a percutaneous biliary drainage tube in place, placed in the interval compared to p rior CT through the left lobe and coiled within the common bile duct region. Mild uptake is present a long the tract. Biliary stent is also in place with some soft tissue attenuation present within the s tent which may be due to stent occlusion. There is a focus of uptake in the left upper quadrant adjac ent to the greater curvature of the stomach and possibly related to colon at this level, some uptake is also present within the hepatic flexure region of the colon. There is no retroperitoneal adenopath y evident. There is no ascites. No pelvic adenopathy. Prostate is enlarged. Osseous structures show some facet arthropathy change in the upper cervical spine, there are some ass ociated uptake. Degenerative disc change and facet arthropathy noted in the lower lumbar spine. IMPRESSION: Findings consistent with patient's history of pancreatic carcinoma, interval biliary drai nage tube placement. Uptake along the colon may be physiologic but is indeterminate. Coronary artery disease. Uptake in the cervical spine thought likely to be related to facet arthropathy.
== END | disposition home or self-care (01) ==
LOC: RADPETMAIN 10:03
PROVIDERS: ATTEND Internal Medicine Hematology & Oncology
DX: C25.0 Malignant neoplasm of head of pancreas (principal)
CPT/HCPCS: 78815; A9552

== ENCOUNTER 2021-02-14 16:49 | Emergency (ER) | payer MEDICARE ==
[2021-02-14 19:27] VITALS: BP 141/83; PULSE 79; RESP 18; TEMP 97.6
[2021-02-14] MEDS ORDERED: SODIUM CHLORIDE 0.9% 1,000 ML IV STA ×3 (20:01→23:23)
[2021-02-14] MEDS ORDERED: HYDROmorphone 1 MG/ML 1 ML SYRINGE IVP STA ×2 (20:02→23:23)
[2021-02-14] MEDS ORDERED: ONDANSETRON 4 MG/2 ML VIAL IVP STA (20:02)
--- NOTE | 2021-02-14 20:08 | ED ---
Abdominal Pain HPI - General Chief Complaint: Abdominal Pain Stated Complaint: abd pain, nausea Time Seen by Provider: 02/14/21 19:40 Source: patient, family, RN notes reviewed Mode of arrival: ambulatory - History of Present Illness Initial Comments: 66-year-old male with a history of pancreatic head cancer who presents with complaints of abdominal pain with some nausea and vomiting he still having some bowel output from below he was seen at outpatient center told he had an obstruction versus a partial obstruction of his bowel. He complains of 67/10 severity pain he also does have a biliary drain which appears be functioning he says he is at the bag 3 times today- MD Complaint: abdominal pain - Related Data Home Medications Medication Instructions Recorded Confirmed traMADol HCL [Ultram] 50 mg PO Q6H PRN 03/18/20 02/14/21 Ondansetron Odt [Zofran Odt] 4 mg PO Q6H PRN 08/13/20 02/14/21 Acetaminophen [Tylenol] 500 mg PO Q4-6H PRN 02/14/21 02/14/21 Atorvastatin [Lipitor] 40 mg PO HS 02/14/21 02/14/21 Cholestyramine (with Sugar) 4 gm PO BID PRN 02/14/21 02/14/21 [Cholestyramine Packet] Diphenoxylate HCl/Atropine 1 tab PO QID PRN 02/14/21 02/14/21 [Lomotil 2.5-0.025 mg Tablet] Previous Rx's Medication Instructions Recorded Nitroglycerin Sl Tabs [Nitrostat] 0.4 mg SUBLINGUAL Q5M PRN #20 tab 03/06/16 HYDROcodone/APAP 5-325MG [[place] 1 tab PO Q6HR PRN 5 Days #20 tab 02/15/21 5-325] Levofloxacin [Levaquin] 750 mg PO DAILY 1 Days #10 tab 02/15/21 metroNIDAZOLE [Flagyl] 500 mg PO QID #40 tab 02/15/21 Allergies Allergy/AdvReac Type Severity Reaction Status Date / Time No Known Allergies Allergy Verified 02/14/21 21:22 Review of Systems ROS Statement: Those systems with pertinent positive or pertinent negative responses have been documented in the HPI. ROS Other: All systems not noted in ROS Statement are negative. Past Medical History Past Medical History: Coronary Artery Disease (CAD), Cancer, Hyperlipidemia, Hypertension, Myocardial Infarction ([place]) Additional Past Medical History / Comment(s): pancreatic cancer Last Myocardial Infarction Date:: 03/03/2016 History of Any Multi-Drug Resistant Organisms: None Reported Past Surgical History: Heart Catheterization With Stent, Orthopedic Surgery, Tonsillectomy Additional Past Surgical History / Comment(s): left knee surgery Past Anesthesia/Blood Transfusion Reactions: Previous Problems w/ Anesthesia Additional Past Anesthesia/Blood Transfusion Reaction / Comment(s): took long time to wake up after knee surgery 1971 Date of Last Stent Placement:: 2016 Past Psychological History: No Psychological Hx Reported Smoking Status: Former smoker Past Alcohol Use History: Occasional Past Drug Use History: Marijuana - Past Family History Father Family Medical History: Renal Disease Additional Family Medical History / Comment(s): Father of renal failure at the age of 92. Mother Family Medical History: Cancer Additional Family Medical History / Comment(s): Mother in her 60's from some form of cancer that ended up in her lymph nodes. General Exam - General Exam Comments Initial Comments: Is a well-developed asthenic appearing male who is awake alert oriented 3 General appearance: alert, in no apparent distress Head exam: Present: atraumatic, normocephalic, normal inspection Eye exam: Present: normal appearance, PERRL, EOMI. Absent: scleral icterus, conjunctival injection, periorbital swelling ENT exam: Present: mucous membranes dry Neck exam: Present: normal inspection. Absent: tenderness, meningismus, lymphadenopathy Respiratory exam: Present: normal lung sounds bilaterally. Absent: respiratory distress, wheezes, rales, rhonchi, stridor Cardiovascular Exam: Present: regular rate, normal rhythm, normal heart sounds. Absent: systolic murmur, diastolic murmur, rubs, gallop, clicks GI/Abdominal exam: Present: soft, tenderness (Biliary drain in place no bruits no pulsatile masses), normal bowel sounds. Absent: distended, guarding, rebound, rigid Rectal exam: Present: deferred Extremities exam: Present: normal inspection, full ROM, normal capillary refill. Absent: tenderness, pedal edema, joint swelling, calf tenderness Back exam: Present: normal inspection Neurological exam: Present: alert, oriented X3, CN II-XII intact Psychiatric exam: Present: normal affect, normal mood Skin exam: Present: warm, dry, intact, normal color. Absent: rash Course Vital Signs 02/14/21 19:21 Temperature 97.6 F Pulse Rate 79 Respiratory 18 Rate Blood Pressure 141/83 O2 Sat by Pulse 100 Oximetry - Reevaluation(s) Reevaluation #1: 02/15/21 00:10 Reevaluation patient finds he feels much improved this time he will be discharged Medical Decision Making - Medical Decision Making I did have a long discussion with patient and his was present I did discuss the findings with the patient he does demonstrate evidence of dehydration as well as the suspected sigmoid colitis. His pain is improved after long discussion he does not want to stay in the hospital although we did offer admission. He prefer to go home we did discuss this and return parameters were discussed. Patient will be discharged with follow-up with his doctor return. Due to the patient's history U we placed on antibiotics - Lab Data Result diagrams: 02/14/21 20:59 02/14/21 20:59 Lab Results 02/14/21 02/14/21 02/14/21 Range/Units 20:59 20:59 20:59 WBC 7.8 (3.8-10.6) k/uL RBC 3.96 L (4.30-5.90) m/uL Hgb 12.6 L (13.0-17.5) gm/dL Hct 38.2 L (39.0-53.0) % MCV 96.2 (80.0-100.0) fL MCH 31.8 (25.0-35.0) pg MCHC 33.1 (31.0-37.0) g/dL RDW 12.9 (11.5-15.5) % Plt Count 203 (150-450) k/uL MPV 7.3 Neutrophils % 93 % Lymphocytes % 6 % Monocytes % 1 % Eosinophils % 0 % Basophils % 0 % Neutrophils # 7.2 (1.3-7.7) k/uL Lymphocytes # 0.5 L (1.0-4.8) k/uL Monocytes # 0.1 (0-1.0) k/uL Eosinophils # 0.0 (0-0.7) k/uL Basophils # 0.0 (0-0.2) k/uL PT 10.0 (9.0-12.0) sec INR 0.9 (<1.2) APTT 24.7 (22.0-30.0) sec Sodium 137 (137-145) mmol/L Potassium 4.4 (3.5-5.1) mmol/L Chloride 98 (98-107) mmol/L Carbon Dioxide 23 (22-30) mmol/L Anion Gap 16 mmol/L BUN 19 (9-20) mg/dL Creatinine 0.45 L (0.66-1.25) mg/dL Est GFR (CKD-EPI)AfAm >90 (>60 ml/min/1.73 sqM) Est GFR (CKD-EPI)NonAf >90 (>60 ml/min/1.73 sqM) Glucose 142 H (74-99) mg/dL Lactic Ac Sepsis Rflx Plasma Lactic Acid [place] (0.7-2.0) mmol/L Calcium 9.9 (8.4-10.2) mg/dL Total Bilirubin 1.6 H (0.2-1.3) mg/dL AST 53 (17-59) U/L ALT 58 H (4-49) U/L Alkaline Phosphatase 611 H (38-126) U/L Total Protein 7.5 (6.3-8.2) g/dL Albumin 4.4 (3.5-5.0) g/dL Amylase 42 (30-110) U/L Lipase 33 (23-300) U/L Urine Color Urine Appearance (Clear) Urine pH (5.0-8.0) Ur Specific [place] (1.001-1.035) Urine Protein (Negative) Urine Glucose (UA) (Negative) Urine Ketones (Negative) Urine Blood (Negative) Urine Nitrite (Negative) Urine Bilirubin (Negative) Urine Urobilinogen (<2.0) mg/dL Ur Leukocyte Esterase (Negative) 02/14/21 02/14/21 02/14/21 Range/Units 20:59 21:21 23:31 WBC (3.8-10.6) k/uL RBC (4.30-5.90) m/uL Hgb (13.0-17.5) gm/dL Hct (39.0-53.0) % MCV (80.0-100.0) fL MCH (25.0-35.0) pg MCHC (31.0-37.0) g/dL RDW (11.5-15.5) % Plt Count (150-450) k/uL MPV Neutrophils % % Lymphocytes % % Monocytes % % Eosinophils % % Basophils % % Neutrophils # (1.3-7.7) k/uL Lymphocytes # (1.0-4.8) k/uL Monocytes # (0-1.0) k/uL Eosinophils # (0-0.7) k/uL Basophils # (0-0.2) k/uL PT (9.0-12.0) sec INR (<1.2) APTT (22.0-30.0) sec Sodium (137-145) mmol/L Potassium (3.5-5.1) mmol/L Chloride (98-107) mmol/L Carbon Dioxide (22-30) mmol/L Anion Gap mmol/L BUN (9-20) mg/dL Creatinine (0.66-1.25) mg/dL Est GFR (CKD-EPI)AfAm (>60 ml/min/1.73 sqM) Est GFR (CKD-EPI)NonAf (>60 ml/min/1.73 sqM) Glucose (74-99) mg/dL Lactic Ac Sepsis Rflx Y Plasma Lactic Acid [place] 2.2 H* (0.7-2.0) mmol/L Calcium (8.4-10.2) mg/dL Total Bilirubin (0.2-1.3) mg/dL AST (17-59) U/L ALT (4-49) U/L Alkaline Phosphatase (38-126) U/L Total Protein (6.3-8.2) g/dL Albumin (3.5-5.0) g/dL Amylase (30-110) U/L Lipase (23-300) U/L Urine Color Yellow Urine Appearance Clear (Clear) Urine pH 6.0 (5.0-8.0) Ur Specific [place] 1.034 (1.001-1.035) Urine Protein Trace H (Negative) Urine Glucose (UA) Negative (Negative) Urine Ketones Negative (Negative) Urine Blood Negative (Negative) Urine Nitrite Negative (Negative) Urine Bilirubin Negative (Negative) Urine Urobilinogen <2.0 (<2.0) mg/dL Ur Leukocyte Esterase Negative (Negative) - Radiology Data Radiology results: report reviewed (Imaging reviewed including the report. Patient does them straight evidence of sigmoid colitis versus tumor no evidence of obstruction some fecal stasis noted.), image reviewed Disposition Clinical Impression: Abdominal pain, Colitis, Dehydration, Elevated lactic acid level, History of pancreatic cancer Disposition: HOME SELF-CARE Condition: Good Instructions (If sedation given, give patient instructions): Abdominal Pain (ED), Colitis (ED) Prescriptions: metroNIDAZOLE [Flagyl] 500 mg PO QID #40 tab Levofloxacin [Levaquin] 750 mg PO DAILY 1 Days #10 tab HYDROcodone/APAP 5-325MG [[place] 5-325] 1 tab PO Q6HR PRN 5 Days #20 tab PRN Reason: Pain Control Is patient prescribed a controlled substance at d/c from ED?: No Referrals: Garrett Bolton DO [Primary Care Provider] - 1-2 days
[2021-02-14 21:13] LABS: Basophils % (A) 0 %; Eosinophils % (A) 0 %; HCT 38.2 % (39.0-53.0); HGB 12.6 gm/dL (13.0-17.5); Lymphocytes # (A) 0.5 k/uL (1.0-4.8); Lymphocytes % (A) 6 %; MCH 31.8 pg (25.0-35.0); MCHC 33.1 g/dL (31.0-37.0); MCV 96.2 fL (80.0-100.0); Mean Platelet Volume 7.3; Monocytes # (A) 0.1 k/uL (0-1.0); Monocytes % (A) 1 %; Neutrophils # (A) 7.2 k/uL (1.3-7.7); Neutrophils % (A) 93 %; Platelet Count 203 k/uL (150-450); RBC 3.96 m/uL (4.30-5.90); RDW 12.9 % (11.5-15.5); WBC 7.8 k/uL (3.8-10.6)
[2021-02-14 21:18] LABS: ALT 58 U/L (4-49); AST 53 U/L (17-59); African American GFR (CKD) >90 (>60 ml/min/1.73 sqM); Albumin 4.4 g/dL (3.5-5.0); Alkaline Phosphatase 611 U/L (38-126); Amylase 42 U/L (30-110); Anion Gap 16 mmol/L; Blood Urea Nitrogen 19 mg/dL (9-20); Calcium 9.9 mg/dL (8.4-10.2); Carbon Dioxide 23 mmol/L (22-30); Chloride 98 mmol/L (98-107); Glucose 142 mg/dL (74-99); Lipase 33 U/L (23-300); Non-African American GFR(CKD) >90 (>60 ml/min/1.73 sqM); Potassium 4.4 mmol/L (3.5-5.1); Sodium 137 mmol/L (137-145); Total Bilirubin 1.6 mg/dL (0.2-1.3); Total Protein 7.5 g/dL (6.3-8.2)
[2021-02-14 21:19] LABS: INR 0.9 (<1.2); Partial Thromboplastin Time 24.7 sec (22.0-30.0)
--- NOTE | 2021-02-14 22:48 | CT ---
EXAMINATION TYPE: CT abdomen pelvis w con DATE OF EXAM: 02/14/2021 COMPARISON: 10/22/2020 HISTORY: ABD PAIN CT DLP: 728.8 mGycm Automated exposure control for dose reduction was used. CONTRAST: Performed with IV Contrast, patient injected with 100 mL of Isovue 300. Images obtained from the diaphragm to the floor the pelvis with IV contrast. Lung bases are clear. There is no pleural effusion. Heart size is normal. There is no pericardial eff usion. Liver has normal size. There is pigtail drainage catheter at the lc hepatis. There is some air in the biliary tree. Gallbladder shows small amount of surrounding fluid. Spleen is intact. Stoma ch is intact. There is no pancreatic mass. The bile ducts are not dilated. There is no adrenal mass. Kidneys show satisfactory contrast opacific ation. Delayed images show normal renal excretion. There is 2 cm cortical cyst lateral left kidney. T here is no retroperitoneal adenopathy. Bladder distends smoothly. Prostate measures 5.3 cm. There is no inguinal hernia. There is no free fluid in the pelvis. There is wall thickening of the distal sigm oid colon. There are some distended fluid-filled small bowel loops in the midabdomen. There is retain ed fecal material in the descending colon and proximal sigmoid colon. The lumbar vertebrae have jeff l alignment. There is degenerative disc space narrowing at L4-5. The bony pelvis is intact. The hip j oints are intact. IMPRESSION: There is percutaneous biliary drainage catheter. There is decompression of the dilated bile ducts com pared to old exam. There is small amount of air in the anterior biliary tree. Distended small bowel suggestive of mild ileus. There is a small amount of abdominal ascites. There is wall thickening of the distal sigmoid colon that appears new compared to old exam and could relate to some focal colitis. Tumor not excluded. There is proximal retained fecal material and const ipation..
[2021-02-14 23:38] LABS: Appearance,Urine Clear (Clear); Bilirubin,Urine Negative (Negative); Blood,Urine Negative (Negative); Color,Urine Yellow; Glucose,Urine (UA) Negative (Negative); Ketones,Urine Negative (Negative); Leukocyte Esterase,Urine Negative (Negative); Nitrite,Urine Negative (Negative); Protein,Urine Trace (Negative); Specific Gravity,Urine 1.034 (1.001-1.035); Urobilinogen,Urine <2.0 mg/dL (<2.0)
[2021-02-15] MEDS ORDERED: LEVOFLOXACIN 750 MG TAB PO STA (00:08)
[2021-02-15] MEDS ORDERED: metroNIDAZOLE 500 MG TAB PO STA (00:08)
[2021-02-15] MEDS ORDERED: HYDROcodone/APAP 5-325MG 1 EACH TAB PO STA (00:09)
== END 2021-02-15 00:45 | disposition home or self-care (01) ==
LOC: EC 16:49
DX: K52.9 Noninfective gastroenteritis and colitis, unspecified (principal); E86.0 Dehydration; R74.02 Elevation of levels of lactic acid dehydrogenase [LDH]; I10 Essential (primary) hypertension; I25.2 Old myocardial infarction; E78.5 Hyperlipidemia, unspecified; Z79.899 Other long term (current) drug therapy; Z87.11 Personal history of peptic ulcer disease
CPT/HCPCS: 36415; 80053; 82150; 83605; 83690; 85025; 85610; 85730; 81003; 74177; 99284; 96374; 96375; 96376; 96361; J2405; J1170 ×2; Q9967

== ENCOUNTER → 2021-04-21 | Outpatient (CLI) | payer MEDICARE ==
[2021-04-21 13:29] LABS: African American GFR (CKD) >90 (>60 ml/min/1.73 sqM); Blood Urea Nitrogen 16 mg/dL (9-20); Non-African American GFR(CKD) >90 (>60 ml/min/1.73 sqM)
--- NOTE | 2021-04-21 15:50 | CT ---
EXAMINATION TYPE: CT ChestAbdPelvis w con DATE OF EXAM: 04/21/2021 COMPARISON: CT dated 02/14/2021 and PET scan dated 11/26/2020 HISTORY: Pancreatic ca, observe for mets CT DLP: 604 mGycm Automated exposure control for dose reduction was used. CONTRAST: CT scan of the chest, abdomen and pelvis is performed with Oral Contrast and with IV Contrast, patien t injected with 100 mL of Isovue 300. FINDINGS: LUNGS: 2 mm nodule is seen at the anterior aspect of the left upper lobe (image #23, series 4), nonsp ecific. It was appreciated in February 2020 PET scan. No other definite lung nodule identified. COPD c hanges. Patent central airways. No pleural effusion. MEDIASTINUM: No gross cardiomegaly. No pericardial effusion. Arterial atherosclerotic calcifications with coronary arterial calcifications. Dilated ascending aorta measuring up to 4.2 cm. 9 mm right hil ar lymph node, attention follow-up. No pathologically enlarged lymph nodes in the chest. OTHER: Right upper chest wall Port-A-Cath with the tip is seen at the inferior aspect of the SVC. No aggressive bone lesion. LIVER/GB: Pneumobilia. Right hepatic dome hypodensity measuring 7 mm compared to 9 mm previously. Lef t hepatic lobe superior hypodensity measuring 12 mm, not significantly changed compared to the previo us CT scan. No other definite hepatic focal lesion identified. No gallbladder calculi. PANCREAS: Persistent dilatation of the pancreatic duct. Subtle hypodense area is seen at the posterio r aspect of the pancreatic head measuring 16mm. Residual pancreatic cancer cannot be excluded. CBD st ent, apparently patent. Infiltration along the lc hepatis cannot be excluded. SPLEEN: No significant abnormality is seen. ADRENALS: No significant abnormality is seen. KIDNEYS: Bilateral renal cysts, otherwise unremarkable kidneys. BOWEL: Suboptimally assessed due to paucity of intra-abdominal fat. No evidence of bowel obstruction . Segments of colonic wall thickening mainly in the sigmoid colon and mid ascending colon, suboptimal ly assessed. Recommend correlation with colonoscopy results. REPRODUCTIVE ORGANS: Enlarged prostate, please complete with PSA level. LYMPH NODES: Prominent subcentimeter left paraortic lymph nodes, nonspecific. No pathologically enlar ged lymph nodes in the abdomen or the pelvis. OSSEOUS STRUCTURES: Marked degenerative changes at L4-5 level. No aggressive bone lesion. OTHER: Scattered arterial atherosclerotic calcifications. No sizable ascites. IMPRESSION: 1. Stable 2 mm left upper lung lobe nodule. No other definite lung lesions identified. 9 mm right hil ar lymph node, attention follow-up. 2. Ill-defined hypodensity at the posterior aspect of the pancreatic head, residual pancreatic cancer cannot be excluded. Soft tissue thickening along the lc hepatis, infiltrative lesion cannot be ex cluded. 3. Slightly smaller right hepatic dome lesion with a stable left hepatic lobe superior lesion. No oth er definite hepatic focal lesion. 4. Otherwise no evidence of metastatic disease seen in the chest, abdomen or the pelvis. Other interv al changes and incidental findings as described above. Further PET scan assessment can be considered if clinically required.
== END | disposition home or self-care (01) ==
LOC: RADPROMAIN 12:50
PROVIDERS: ATTEND Internal Medicine Hematology & Oncology
DX: C25.0 Malignant neoplasm of head of pancreas (principal); R91.1 Solitary pulmonary nodule; K76.89 Other specified diseases of liver
CPT/HCPCS: 80053; 82565; 84520; 71260; 74177; 36415; J1642; Q9967

== ENCOUNTER → 2021-07-27 | Outpatient (CLI) | payer MEDICARE ==
[2021-07-27 11:21] LABS: African American GFR (CKD) >90 (>60 ml/min/1.73 sqM); Blood Urea Nitrogen 13 mg/dL (9-20); Non-African American GFR(CKD) >90 (>60 ml/min/1.73 sqM)
--- NOTE | 2021-07-27 13:09 | CT ---
EXAMINATION TYPE: CT ChestAbdPelvis w con DATE OF EXAM: 07/27/2021 COMPARISON: CT dated 04/21/2021 HISTORY: Follow-up malignant neoplasm of the pancreas CT DLP: 626 mGycm Automated exposure control for dose reduction was used. CONTRAST: CT scan of the chest, abdomen and pelvis is performed with Oral Contrast and with IV Contrast, patien t injected with 100 mL of Isovue 300. FINDINGS: LUNGS: The previously seen left upper lobe 2 mm nodule isn't appreciated today. COPD changes. No new suspicious or progressive lung lesion. Filling defects within the trachea likely representing secreti ons. Otherwise patent trachea and main bronchi. No pleural effusion. MEDIASTINUM: Stable 9 mm right hilar lymph node. No pathologically enlarged or progressive lymph node s in the chest. Unchanged heart and great mediastinal vessels. Dilated ascending aorta measuring up t o 4 cm. OTHER: No aggressive bone lesion. LIVER/GB: Stable 7 mm hypodense lesion at the posterior aspect of the right hepatic dome as well as t he 12 mm hypodense lesion at the superior aspect of the left hepatic lobe. No definite new hepatic fo faustino lesion identified. Previous cholecystectomy. CBD stent is seen in place with pneumobilia. PANCREAS: Stable subtle hypodense area at the posterior aspect of the pancreatic head measuring 15 mm . Unchanged pancreatic ductal dilatation. SPLEEN: Bulky spleen measuring 13.6 cm. ADRENALS: No significant abnormality is seen. KIDNEYS: Few bilateral renal hypodensities likely representing renal cysts, otherwise unremarkable ki dneys. BOWEL: Unremarkable stomach, duodenum and small bowel. Diffuse wall thickening of the colon, nonspec ific. Colitis cannot be excluded. Moderate fecal loading of the colon. REPRODUCTIVE ORGANS: Enlarged prostate. Unremarkable seminal vesicles and urinary bladder. LYMPH NODES: No greater than 1 cm abdominal or pelvic lymph nodes are appreciated. OSSEOUS STRUCTURES: Degenerative changes at L4-5 level. No aggressive lesion. OTHER: Arterial atherosclerotic calcifications. No sizable ascites. IMPRESSION: Stable ill-defined hypodensity at the posterior aspect of the pancreas as well as the few hepatic les ions as described above. Otherwise no evidence of metastatic disease seen in the chest, abdomen or th e pelvis. Incidental findings as described above.
== END | disposition home or self-care (01) ==
LOC: RADPROMAIN 09:37
PROVIDERS: ATTEND Internal Medicine Hematology & Oncology
DX: C25.0 Malignant neoplasm of head of pancreas (principal)
CPT/HCPCS: 82565; 84520; 71260; 74177; J1642; Q9967 ×2

== ENCOUNTER → 2021-10-26 | Outpatient (CLI) | payer MEDICARE ==
[2021-10-26 14:07] LABS: African American GFR (CKD) >90 (>60 ml/min/1.73 sqM); Blood Urea Nitrogen 14 mg/dL (9-20); Non-African American GFR(CKD) >90 (>60 ml/min/1.73 sqM)
--- NOTE | 2021-10-27 08:06 | CT ---
EXAMINATION TYPE: CT ChestAbdPelvis w con DATE OF EXAM: 10/26/2021 INDICATION: Pancreatic CA COMPARISON: 07/27/2021 CT DLP: 1536 mGycm CONTRAST: Performed with Oral Contrast and with IV Contrast, patient injected with 70ml mL of Isovue 300. TECHNIQUE: Axial images at 5 mm thick sections. Reconstructed images in the coronal plane. Delayed images through the kidneys. FINDINGS: CT CHEST: Portion of the thyroid visualized is normal. No suspicious lung nodules or focal infiltrates are present. No enlarged mediastinal or hilar adenopathy is evident. The ascending aorta diameter at the level of the main pulmonary artery is 4.2 cm. The main pulmonary artery diameter at the bifurcation is 2.6 cm. Coronary artery calcifications present. CT ABDOMEN: Liver: Some air is present within the central biliary system. Spleen: Normal Pancreas: Pancreatic duct is dilated. There is pancreatic head stent. Pancreas is slightly heterogeno us. Previous low density uncinate process abnormality is not as well-visualized on the current exam. No enlarging mass is identified. Adrenal glands: The adrenal glands are normal. Gallbladder: Not identified Kidneys: No masses are evident. No hydronephrosis is present. There is a 1.7 cm posterior lateral l eft mid renal cyst. Delayed images were obtained through the kidneys, which remain unremarkable. Aorta: Vascular calcification is within the aorta. Inferior vena cava: Normal. CT PELVIS: Fecal debris is through the colon. There is a section of sigmoid colon with some diffuse thickening. Additional evaluation of the distal colon is recommended. Underlying neoplasm is not excluded. There are loops of bowel which are incompletely distended or lack oral contrast limiting their evaluation. Appendix: Not identified. No dilated tubular structure or inflammatory changes are evident. Urinary bladder: Normal. Genitourinary structures: Prostate is slightly prominent Osseous structures: No suspicious lytic or sclerotic lesions. IMPRESSIONS: 1. Ascending thoracic aortic aneurysm of 4.2 cm. 2. Heterogenous appearance of the pancreas. No enlarging masses are evident. There is persistent panc reatic ductal dilatation. 3. Thickening within the mid to distal sigmoid colon. Additional evaluation is recommended. Underlyin g neoplasm should be considered.
== END | disposition home or self-care (01) ==
LOC: RADCTMAIN 12:43
PROVIDERS: ATTEND Internal Medicine Hematology & Oncology
DX: C25.0 Malignant neoplasm of head of pancreas (principal); I71.2 Thoracic aortic aneurysm, without rupture; K63.89 Other specified diseases of intestine
CPT/HCPCS: 82565; 84520; 71260; 74177; 36415; Q9967

== ENCOUNTER → 2022-01-11 | Outpatient (CLI) | payer MEDICARE ==
[2022-01-11 14:50] LABS: African American GFR (CKD) >90 (>60 ml/min/1.73 sqM); Blood Urea Nitrogen 20 mg/dL (9-20); Non-African American GFR(CKD) >90 (>60 ml/min/1.73 sqM)
--- NOTE | 2022-01-11 16:28 | CT ---
EXAMINATION TYPE: CT ChestAbdPelvis w con DATE OF EXAM: 01/11/2022 COMPARISON: 10/26/2021, 07/27/2021, 04/21/2021 HISTORY: 66-year-old male C25.0, malignant neoplasm of the pancreatic head, observation for metastase s. TECHNIQUE: Contiguous axial scanning of the chest, abdomen, and pelvis performed with IV Contrast, pa tient injected with 70 mL of Isovue 300. Delayed images through the kidneys were obtained. Coronal/sa gittal reconstructions performed. CT DLP: 1341 mGycm Automated exposure control for dose reduction was used. FINDINGS: CHEST: Heart normal size without pericardial effusion. Dense LAD coronary artery calcifications are present. The aortic root is ectatic at 3.8 cm. Aneurysm ascending aorta 4.3 cm unchanged. Conventional arch ve ssel branching anatomy. Mild atherosclerotic arch calcifications. Right anterior chest wall and port with catheter tip at the mid to lower SVC. No thoracic lymphadenopathy by CT size criteria. Some mild dependent atelectasis noted in the lower lobes. Minimal emphysematous change. No consolidat ion or pleural effusion. ABDOMEN: Redemonstrated pneumobilia poorly defined 1.1 cm lesion left hepatic dome is unchanged. Suspect eithe r vascular shunting or a fat lesion lateral inferior right liver lobe that equilibrates on delayed sc an. Portal venous system appears patent. Metallic biliary stent remains in place. Gallbladder likely collapsed and with some air in keeping with a pneumobilia. Persistent 8 mm main pancreatic ductal dilatation no discrete recurrent mass is clearly identified. A ssessment limited due to new moderate abdominal ascites with some fluid extending in the lesser sac a nd lc hepatis region. Edema or soft tissue thickening along the omentum, axial image 80. Areas of mesenteric edema or abnor mal soft tissue thickening extending along the paracolic gutters, for example, the left common axial image 85. Possible mural/serosal thickening along the lower right ascending colon, axial image 95. Scattered mi ld stool. There seems to be some persistent wall thickening along the mid sigmoid colon, axial image 101 which should be correlated with direct visualization. Some diverticular changes present in the sigmoid colo n. No dilated small bowel or free air. No obvious abdominal lymphadenopathy seen. 2.8 cm cortical cyst lateral left kidney. Spleen, right kidney, and adrenal glands appear satisfactor y. PELVIS: Prostatomegaly of 5.4 cm wide. Some presacral edema. Mild circumferential bladder wall thickening. No pelvic lymphadenopathy seen. Ascites fluid appears to be located higher up in the abdomen. Trace pel chino ascites may be present. BONES: Mild degenerative change at the hips. Moderate degenerative disc disease L4-L5. Facet arthropathy tow ards the right L4-L5. IMPRESSION: 1. NEW MODERATE UPPER TO MID ABDOMINAL ASCITES. NO DISCRETE RECURRENT PANCREATIC MASS IS SEEN. CORREL ATE TO EXCLUDE RECURRENCE WITH PERITONEAL DISEASE. 2. THERE IS EITHER FOCAL EDEMA OR SOFT TISSUE THICKENING ALONG THE OMENTUM AND ALONG THE PARACOLIC TTERS. AGAIN, NEW PERITONEAL DISEASE NOT EXCLUDED. 3. MURAL-BASED/SEROSAL THICKENING ALONG THE RIGHT LATERAL ASPECT OF THE LOWER ASCENDING COLON. THIS C OULD REPRESENT ADDITIONAL PERITONEAL DISEASE. DIRECT VISUALIZATION WHEN PATIENT ABLE TO EXCLUDE A NEW COLONIC MUCOSAL LESION. 4. PERSISTENT MID SIGMOID WALL THICKENING. AGAIN, CORRELATE WITH DIRECT VISUALIZATION. 5. METALLIC BILIARY STENT IN PLACE WITH SIMILAR PNEUMOBILIA AND STABLE 1.1 CM VAGUE HYPODENSITY LEFT HEPATIC DOME. STABLE MAIN PANCREATIC DUCTAL DILATATION UP TO 8 MM. 6. INCIDENTAL: 4.3 CM ASCENDING AORTIC ANEURYSM UNCHANGED. PROSTATOMEGALY AT 5.4 CM WIDE.
== END | disposition home or self-care (01) ==
LOC: RADCTMAIN 13:49
PROVIDERS: ATTEND Internal Medicine Hematology & Oncology
DX: C25.0 Malignant neoplasm of head of pancreas (principal); I71.21 Aneurysm of the ascending aorta, without rupture; N40.0 Benign prostatic hyperplasia without lower urinary tract symptoms; K63.89 Other specified diseases of intestine; K86.89 Other specified diseases of pancreas; R18.8 Other ascites
CPT/HCPCS: 82565; 84520; 71260; 74177; 36415; Q9967

== ENCOUNTER 2022-01-25 07:42 | Day surgery (SDC) | payer MEDICARE ==
[2022-01-25 08:47] VITALS: RESP 18; TEMP 97.9
[2022-01-25 08:52] LABS: Prothrombin Time 10.5 sec (9.0-12.0)
[2022-01-25 09:18] VITALS: PULSE 69
[2022-01-25 09:48] VITALS: BP 138/76
--- NOTE | 2022-01-25 10:43 | US ---
Ultrasound-guided paracentesis. DATE OF EXAM: 01/25/2022 CLINICAL HISTORY: Ascites The procedure was discussed with the patient. The risks, complications, benefits, and alternatives we re discussed and any questions were answered. Informed consent was obtained. The patient was placed s upine on the ultrasound table and prepped and draped in the usual sterile fashion. All elements of maximal barrier technique were utilized. Under ultrasound guidance, access into the right lower quadrant was obtained, via the paracentesis catheter system and direct ultrasound guidanc e. Approximately 2.9 liters of straw-colored fluid was removed. The patient was stable throughout the pr ocedure and remained stable upon discharge from Department of Radiology. IMPRESSION: Successful paracentesis under ultrasound guidance.
== END 2022-01-25 10:05 | disposition home or self-care (01) ==
LOC: RADPROMAIN 07:42
PROVIDERS: ATTEND Internal Medicine Hematology & Oncology
DX: C25.9 Malignant neoplasm of pancreas, unspecified (principal); R18.8 Other ascites
CPT/HCPCS: 36415; 49083; 85610; 88108; 88305; 88341; 88342

== ENCOUNTER 2022-02-16 08:44 | Day surgery (SDC) | payer MEDICARE ==
[2022-02-16 09:12] VITALS: RESP 16; TEMP 95.1
[2022-02-16 09:18] LABS: Mean Platelet Volume 7.5; Platelet Count 228 k/uL (150-450)
[2022-02-16 09:31] LABS: Prothrombin Time 10.4 sec (9.0-12.0)
[2022-02-16 10:50] VITALS: BP 116/74; PULSE 68
--- NOTE | 2022-02-16 10:58 | US ---
Ultrasound-guided paracentesis. DATE OF EXAM: 02/16/2022 CLINICAL HISTORY: Ascites The procedure was discussed with the patient. The risks, complications, benefits, and alternatives we re discussed and any questions were answered. Informed consent was obtained. The patient was placed s upine on the ultrasound table and prepped and draped in the usual sterile fashion. All elements of maximal barrier technique were utilized. Under ultrasound guidance, access into the right lower quadrant was obtained, via the paracentesis catheter system and direct ultrasound guidanc e. Approximately 6.1 liters of straw-colored fluid was removed. The patient was stable throughout the pr ocedure and remained stable upon discharge from Department of Radiology. IMPRESSION: Successful paracentesis under ultrasound guidance.
== END 2022-02-16 11:05 | disposition home or self-care (01) ==
LOC: RADPROMAIN 08:44
PROVIDERS: ATTEND Internal Medicine Hematology & Oncology
DX: R18.8 Other ascites (principal)
CPT/HCPCS: 36415; 49083; 85049; 85610

== ENCOUNTER 2022-02-20 16:46 | Inpatient (IN) | payer MEDICARE ==
--- NOTE | 2022-02-20 18:54 | ED ---
Abdominal Pain HPI - General Source: patient, family, RN notes reviewed Mode of arrival: wheelchair Limitations: no limitations <Angela Cobos - Last Filed: 02/21/22 16:35> <Omari Gamble - Last Filed: 02/27/22 00:46> - General Chief Complaint: Abdominal Pain Stated Complaint: Abd pain Time Seen by Provider: 02/20/22 18:48 - History of Present Illness Initial Comments: Medical Screening Exam: Patient is a 67-year-old male who presents to the emergency department with a chief complaint abdominal pain. Patient has pancreatic cancer at head of pancreas. States he usually has mild pain however for the past 3 weeks pain has increased. Pain is mostly in the upper abdomen with radiation to the back. Patient has consistent nausea and vomiting, not tolerating oral intake. No fever, chills, diarrhea. Last bowel movement yesterday, non bloody. Today Dr. Moffett switched his pain medication from 1 25 mg Fentanyl patch every 72 hours to 2 25 mg Fentanyl patches every [address] Moffett sent patient to emergency department today for increased pain and abdominal distention. Patient has chemotherapy every 2 weeks-states tomorrow's session is put on hold until further notice. Patient had paracentesis last . He was also recently evaluated in emergency department where he was diagnosed with sigmoid colitis. (Angela Cobos) - Related Data Home Medications Medication Instructions Recorded Confirmed traMADol HCL [Ultram] 50 mg PO Q6H PRN 03/18/20 02/24/22 Atorvastatin [Lipitor] 40 mg PO HS 02/14/21 02/24/22 Aspirin [Adult Low Dose Aspirin EC] 81 mg PO Q48H 01/24/22 02/24/22 Sennosides/Docusate Sodium [Senna 1 tab PO DAILY PRN 01/24/22 02/24/22 Plus 8.6-50 mg Tablet] Gabapentin [Neurontin] 300 mg PO BID 02/20/22 02/24/22 HYDROcodone/APAP 10-325MG [Urich 1 tab PO Q6HR PRN 02/20/22 02/24/22 10-325] Sennosides/Docusate Sodium [Senna 1 tab PO DAILY 02/20/22 02/24/22 Plus 8.6-50 mg Tablet] fentaNYL 25MCG/HR PATCH [Duragesic 2 patch TRANSDERM Q72H 02/20/22 02/24/22 25MCG/HR] Previous Rx's Medication Instructions Recorded Nitroglycerin Sl Tabs [Nitrostat] 0.4 mg SUBLINGUAL Q5M PRN #20 tab 03/06/16 Allergies Allergy/AdvReac Type Severity Reaction Status Date / Time No Known Allergies Allergy Verified 02/24/22 12:22 Review of Systems ROS Other: All systems not noted in ROS Statement are negative. <Angela Cobos - Last Filed: 02/21/22 16:35> ROS Other: All systems not noted in ROS Statement are negative. Constitutional: Reports: weakness. Denies: fever, chills Respiratory: Denies: cough, dyspnea Cardiovascular: Denies: chest pain, palpitations, edema Gastrointestinal: Reports: abdominal pain, nausea, vomiting. Denies: diarrhea, constipation, hematemesis, melena, hematochezia Genitourinary: Denies: dysuria, hematuria, testicular pain, testicular mass Musculoskeletal: Denies: back pain Skin: Denies: rash Neurological: Denies: headache, weakness <Omari Gamble - Last Filed: 02/27/22 00:46> ROS Statement: Those systems with pertinent positive or pertinent negative responses have been documented in the HPI. Past Medical History Past Medical History: Coronary Artery Disease (CAD), Cancer, Hyperlipidemia, Myocardial Infarction (AR) Additional Past Medical History / Comment(s): pancreatic cancer Last Myocardial Infarction Date:: 03/03/2016 History of Any Multi-Drug Resistant Organisms: None Reported Past Surgical History: Heart Catheterization With Stent, Orthopedic Surgery, Tonsillectomy Additional Past Surgical History / Comment(s): left knee surgery, mediport Past Anesthesia/Blood Transfusion Reactions: Previous Problems w/ Anesthesia Additional Past Anesthesia/Blood Transfusion Reaction / Comment(s): took long time to wake up after knee surgery 1971 Date of Last Stent Placement:: 2016 Past Psychological History: No Psychological Hx Reported Smoking Status: Former smoker Past Alcohol Use History: Occasional Past Drug Use History: Marijuana - Past Family History Father Family Medical History: Renal Disease Additional Family Medical History / Comment(s): Father of renal failure at the age of 92. Mother Family Medical History: Cancer Additional Family Medical History / Comment(s): Mother in her 60's from some form of cancer that ended up in her lymph nodes. <ChandrikaAngela - Last Filed: 02/21/22 16:35> General Exam Limitations: no limitations <Angela Cobos - Last Filed: 02/21/22 16:35> General appearance: alert, in no apparent distress Head exam: Present: atraumatic, normocephalic Eye exam: Present: normal appearance. Absent: scleral icterus, conjunctival injection ENT exam: Present: mucous membranes dry Neck exam: Present: normal inspection Respiratory exam: Present: normal lung sounds bilaterally. Absent: respiratory distress, wheezes, rales, rhonchi, stridor Cardiovascular Exam: Present: regular rate, normal rhythm, normal heart sounds. Absent: systolic murmur, diastolic murmur, rubs, gallop GI/Abdominal exam: Present: soft, tenderness (There is mild diffuse tenderness without rebound or guarding), other (Exam consistent with mild to moderate ascites). Absent: distended, guarding, rebound, rigid, mass, pulsatile mass, hernia Extremities exam: Present: normal inspection, normal capillary refill. Absent: pedal edema, calf tenderness Back exam: Present: normal inspection. Absent: CVA tenderness (R), CVA tenderness (L) Neurological exam: Present: alert Skin exam: Present: warm, dry, intact, normal color. Absent: rash <Omari Gamble - Last Filed: 02/27/22 00:46> Course Vital Signs 02/20/22 02/20/22 02/21/22 17:23 23:01 01:01 Temperature 97.7 F 98.3 F Pulse Rate 100 94 95 Respiratory 20 18 18 Rate Blood Pressure 93/57 97/62 O2 Sat by Pulse 100 97 97 Oximetry Procedures - Sepsis Sepsis Focused Exam #1 Sepsis Focused Exam Date: 02/21/22 Sepsis Focused Exam Time: 00:57 Sepsis Focused Exam Complete: Yes Vital Signs & RN Notes Reviewed: Yes Capillary Refill: < 2 Seconds: Fingers Peripheral Pulses: Normal: Radial (R) Skin Color: Normal for Patient Respiratory Exam: normal lung sounds Cardiovascular Exam: regular rate, normal rhythm <Omari Gamble - Last Filed: 02/27/22 00:46> Medical Decision Making - Lab Data Result diagrams: 02/20/22 20:52 02/20/22 20:52 <Angela Cobos - Last Filed: 02/21/22 16:35> - Lab Data Result diagrams: 02/22/22 06:07 02/22/22 06:07 <Omari Gamble - Last Filed: 02/27/22 00:46> - Medical Decision Making Patient is 67-year-old man with pancreatic cancer, receiving chemotherapy, here with abdominal pain which is somewhat intermittent, moves around the abdomen, not relieved with increased home analgesic. Patient also having consistent nausea and vomiting not tolerating oral intake. Workup here does reveal some lactic acidosis. Computed tomography scan does not reveal definite etiology but does reveal ileus versus bowel obstruction. Patient does feel better with some analgesic. Will admit to have fluids and antibiotic to ensure that there is no sepsis developing. The exam is not consistent with acute peritonitis or other surgical condition. Discussed and by mouth status and at this point patient would like to try the NG tube to see if that provides any additional symptom relief. Was pt. sent in by a medical professional or institution? @ -Dr. Moffett Did you speak to anyone other than the patient for history? @ -[] Did you review nursing and triage notes? @ -[Would not term patient's abdomen distended, patient describes bloating and fullness Were old charts reviewed? @ -[Previous admissions/radiologic study Differential Diagnosis? @ -[Differential Abdominal Pain Men: Appendicitis, cholecystitis, diverticulosis, ischemic bowel, pancreatitis, UTI, gastroenteritis, AAA, incarcerated hernia, bowel obstruction, constipation, inflammatory bowel, hepatitis, peptic ulcer disease, infarction, perforated viscus, peritonitis. this is not meant to be an all-inclusive list EKG interpreted by me (3pts min.)? @ -[none] X-rays interpreted by me (1pt min.)? @ -[none] CT interpreted by me (1pt min.)? @ -[I interpreted the CT abdomen as showing some diffuse ascites as well as distended loops of bowel, differential diagnosis includes ileus and bowel obstruction. U/S interpreted by me (1pt. min.)? @ -[none] What testing was considered but not performed? (CT, X-rays, U/S, labs)? Why? @ [None What meds were considered but not given? Why? @ -[none] Did you discuss the management of the patient with other professionals? @ -[Admitting physician Did you reconcile home meds? @ -[Yes Was smoking cessation discussed for >3mins.? @ -[none] Was critical care preformed (if so, how long)? @ -[none] Were there social determinants of health that impacted care today? How? (Homelessness, low income, unemployed, alcoholism, drug addiction, transportation, low edu. Level, literacy, decrease access to med. care, snf, rehab)? @ -No Was there de-escalation of care discussed even if they declined? (Discuss DNR or withdrawal of care, Hospice)? @ -[No What co-morbidities impacted this encounter? (DM, HTN, Smoking, COPD, CAD, Cancer, CVA, Hep., AIDS, mental health diagnosis, sleep apnea, morbid obesity)? @ -[Cancer Was patient admitted / discharged? @ -[Admitted Undiagnosed new problem with uncertain prognosis? @ -[ Drug Therapy requiring intensive monitoring for toxicity (Heparin, Nitro, Insulin, Cardizem)? @ -[none] Were any procedures done? @ -[none] Diagnosis/symptom? @ -[1.Abdominal pain, 2.ileus versus bowel obstruction 3. Elevated lactic acid, Sepsis versus dehydration Acute, or Chronic, or Acute on Chronic? @ -[These are all acute conditions Uncomplicated (without systemic symptoms) or Complicated (systemic symptoms)? @ -[Complicated condition, there is borderline hypotension Side effects of treatment? @ -[none] Exacerbation, Progression, or Severe Exacerbation] @ -[no] Poses a threat to life or bodily function? @ -Yes (Omari Gamble) - Lab Data Lab Results 02/20/22 02/20/22 02/20/22 Range/Units 20:52 20:52 20:52 WBC 3.6 L (3.8-10.6) k/uL RBC 4.66 (4.30-5.90) m/uL Hgb 13.6 (13.0-17.5) gm/dL Hct 41.4 (39.0-53.0) % MCV 88.9 (80.0-100.0) fL MCH 29.1 (25.0-35.0) pg MCHC 32.7 (31.0-37.0) g/dL RDW 15.2 (11.5-15.5) % Plt Count 206 (150-450) k/uL MPV 8.7 Neutrophils % (Manual) 46 % Band Neuts % (Manual) 10 % Lymphocytes % (Manual) 31 % Monocytes % (Manual) 12 % Eosinophils % (Manual) 1 % Neutrophils # (Manual) 2.00 (1.3-7.7) k/uL Lymphocytes # (Manual) 1.12 (1.0-4.8) k/uL Monocytes # (Manual) 0.43 (0-1.0) k/uL Eosinophils # (Manual) 0.04 (0-0.7) k/uL Nucleated RBCs 0 (0-0) /100 WBC Manual Slide Review Performed Poikilocytosis (manual Present Anisocytosis (manual) Present PT 11.2 (9.0-12.0) sec INR 1.1 (<1.2) APTT 24.4 (22.0-30.0) sec Sodium (137-145) mmol/L Potassium (3.5-5.1) mmol/L Chloride (98-107) mmol/L Carbon Dioxide (22-30) mmol/L Anion Gap mmol/L BUN (9-20) mg/dL Creatinine (0.66-1.25) mg/dL Est GFR (CKD-EPI)AfAm (>60 ml/min/1.73 sqM) Est GFR (CKD-EPI)NonAf (>60 ml/min/1.73 sqM) Glucose (74-99) mg/dL Lactic Ac Sepsis Rflx Plasma Lactic Acid [place] (0.7-2.0) mmol/L Calcium (8.4-10.2) mg/dL Total Bilirubin (0.2-1.3) mg/dL AST (17-59) U/L ALT (4-49) U/L Alkaline Phosphatase (38-126) U/L C-Reactive Protein (<1.0) mg/dL Total Protein (6.3-8.2) g/dL Albumin (3.5-5.0) g/dL Amylase (30-110) U/L Lipase (23-300) U/L Urine Color Yellow Urine Appearance Clear (Clear) Urine pH 5.5 (5.0-8.0) Ur Specific [place] 1.035 (1.001-1.035) Urine Protein 1+ H (Negative) Urine Glucose (UA) Negative (Negative) Urine Ketones Trace H (Negative) Urine Blood Negative (Negative) Urine Nitrite Negative (Negative) Urine Bilirubin 1+ H (Negative) Urine Urobilinogen 2.0 (<2.0) mg/dL Ur Leukocyte Esterase Negative (Negative) Urine RBC 2 (0-5) /hpf Urine WBC 2 (0-5) /hpf Hyaline Casts 29 H (0-2) /lpf Urine Mucus Many H (None) /hpf 02/20/22 02/20/22 02/20/22 Range/Units 20:52 20:52 21:53 WBC (3.8-10.6) k/uL RBC (4.30-5.90) m/uL Hgb (13.0-17.5) gm/dL Hct (39.0-53.0) % MCV (80.0-100.0) fL MCH (25.0-35.0) pg MCHC (31.0-37.0) g/dL RDW (11.5-15.5) % Plt Count (150-450) k/uL MPV Neutrophils % (Manual) % Band Neuts % (Manual) % Lymphocytes % (Manual) % Monocytes % (Manual) % Eosinophils % (Manual) % Neutrophils # (Manual) (1.3-7.7) k/uL Lymphocytes # (Manual) (1.0-4.8) k/uL Monocytes # (Manual) (0-1.0) k/uL Eosinophils # (Manual) (0-0.7) k/uL Nucleated RBCs (0-0) /100 WBC Manual Slide Review Poikilocytosis (manual Anisocytosis (manual) PT (9.0-12.0) sec INR (<1.2) APTT (22.0-30.0) sec Sodium 129 L (137-145) mmol/L Potassium 4.1 (3.5-5.1) mmol/L Chloride 95 L (98-107) mmol/L Carbon Dioxide 25 (22-30) mmol/L Anion Gap 9 mmol/L BUN 21 H (9-20) mg/dL Creatinine 0.78 (0.66-1.25) mg/dL Est GFR (CKD-EPI)AfAm >90 (>60 ml/min/1.73 sqM) Est GFR (CKD-EPI)NonAf >90 (>60 ml/min/1.73 sqM) Glucose 119 H (74-99) mg/dL Lactic Ac Sepsis Rflx Y Plasma Lactic Acid [place] 2.5 H* (0.7-2.0) mmol/L Calcium 8.4 (8.4-10.2) mg/dL Total Bilirubin 0.8 (0.2-1.3) mg/dL AST 30 (17-59) U/L ALT 17 (4-49) U/L Alkaline Phosphatase 226 H (38-126) U/L C-Reactive Protein 5.5 H (<1.0) mg/dL Total Protein 5.5 L (6.3-8.2) g/dL Albumin 3.0 L (3.5-5.0) g/dL Amylase 35 (30-110) U/L Lipase 35 (23-300) U/L Urine Color Urine Appearance (Clear) Urine pH (5.0-8.0) Ur Specific [place] (1.001-1.035) Urine Protein (Negative) Urine Glucose (UA) (Negative) Urine Ketones (Negative) Urine Blood (Negative) Urine Nitrite (Negative) Urine Bilirubin (Negative) Urine Urobilinogen (<2.0) mg/dL Ur Leukocyte Esterase (Negative) Urine RBC (0-5) /hpf Urine WBC (0-5) /hpf Hyaline Casts (0-2) /lpf Urine Mucus (None) /hpf 02/21/22 02/21/22 Range/Units 00:49 04:07 WBC (3.8-10.6) k/uL RBC (4.30-5.90) m/uL Hgb (13.0-17.5) gm/dL Hct (39.0-53.0) % MCV (80.0-100.0) fL MCH (25.0-35.0) pg MCHC (31.0-37.0) g/dL RDW (11.5-15.5) % Plt Count (150-450) k/uL MPV Neutrophils % (Manual) % Band Neuts % (Manual) % Lymphocytes % (Manual) % Monocytes % (Manual) % Eosinophils % (Manual) % Neutrophils # (Manual) (1.3-7.7) k/uL Lymphocytes # (Manual) (1.0-4.8) k/uL Monocytes # (Manual) (0-1.0) k/uL Eosinophils # (Manual) (0-0.7) k/uL Nucleated RBCs (0-0) /100 WBC Manual Slide Review Poikilocytosis (manual Anisocytosis (manual) PT (9.0-12.0) sec INR (<1.2) APTT (22.0-30.0) sec Sodium (137-145) mmol/L Potassium (3.5-5.1) mmol/L Chloride (98-107) mmol/L Carbon Dioxide (22-30) mmol/L Anion Gap mmol/L BUN (9-20) mg/dL Creatinine (0.66-1.25) mg/dL Est GFR (CKD-EPI)AfAm (>60 ml/min/1.73 sqM) Est GFR (CKD-EPI)NonAf (>60 ml/min/1.73 sqM) Glucose (74-99) mg/dL Lactic Ac Sepsis Rflx Plasma Lactic Acid [place] 1.7 1.0 (0.7-2.0) mmol/L Calcium (8.4-10.2) mg/dL Total Bilirubin (0.2-1.3) mg/dL AST (17-59) U/L ALT (4-49) U/L Alkaline Phosphatase (38-126) U/L C-Reactive Protein (<1.0) mg/dL Total Protein (6.3-8.2) g/dL Albumin (3.5-5.0) g/dL Amylase (30-110) U/L Lipase (23-300) U/L Urine Color Urine Appearance (Clear) Urine pH (5.0-8.0) Ur Specific [place] (1.001-1.035) Urine Protein (Negative) Urine Glucose (UA) (Negative) Urine Ketones (Negative) Urine Blood (Negative) Urine Nitrite (Negative) Urine Bilirubin (Negative) Urine Urobilinogen (<2.0) mg/dL Ur Leukocyte Esterase (Negative) Urine RBC (0-5) /hpf Urine WBC (0-5) /hpf Hyaline Casts (0-2) /lpf Urine Mucus (None) /hpf Disposition <Angela Cobos - Last Filed: 02/21/22 16:35> Is patient prescribed a controlled substance at d/c from ED?: No <Omari Gamble - Last Filed: 02/27/22 00:46> Clinical Impression: Abdominal pain, Ileus, Dehydration, Lactic acidosis Disposition: ADMITTED IP TO THIS HOSP Condition: Stable
[2022-02-20] MEDS ORDERED: SODIUM CHLORIDE 0.9% 1,000 ML IV ONE (20:34)
[2022-02-20] MEDS ORDERED: MORPHINE SULFATE 4 MG/ML SYRINGE IV STA (20:34)
[2022-02-20 21:17] LABS: ALT 17 U/L (4-49); AST 30 U/L (17-59); African American GFR (CKD) >90 (>60 ml/min/1.73 sqM); Alkaline Phosphatase 226 U/L (38-126); Amylase 35 U/L (30-110); Anion Gap 9 mmol/L; Blood Urea Nitrogen 21 mg/dL (9-20); C Reactive Protein 5.5 mg/dL (<1.0); Calcium 8.4 mg/dL (8.4-10.2); Carbon Dioxide 25 mmol/L (22-30); Chloride 95 mmol/L (98-107); Glucose 119 mg/dL (74-99); Lipase 35 U/L (23-300); Non-African American GFR(CKD) >90 (>60 ml/min/1.73 sqM); Potassium 4.1 mmol/L (3.5-5.1); Sodium 129 mmol/L (137-145); Total Bilirubin 0.8 mg/dL (0.2-1.3); Total Protein 5.5 g/dL (6.3-8.2)
[2022-02-20 21:45] LABS: INR 1.1 (<1.2); Partial Thromboplastin Time 24.4 sec (22.0-30.0); Prothrombin Time 11.2 sec (9.0-12.0)
[2022-02-20 22:03] LABS: Appearance,Urine Clear (Clear); Bilirubin,Urine 1+ (Negative); Blood,Urine Negative (Negative); Color,Urine Yellow; Glucose,Urine (UA) Negative (Negative); Hyaline Casts,Urine 29 /lpf (0-2); Ketones,Urine Trace (Negative); Leukocyte Esterase,Urine Negative (Negative); Mucus,Urine Many /hpf; Nitrite,Urine Negative (Negative); PH, Urine 5.5 (5.0-8.0); Protein,Urine 1+ (Negative); RBC,Urine 2 /hpf (0-5); Specific Gravity,Urine 1.035 (1.001-1.035); WBC,Urine 2 /hpf (0-5)
--- NOTE | 2022-02-20 22:45 | CT ---
EXAMINATION TYPE: CT abdomen pelvis wo con DATE OF EXAM: 02/20/2022 COMPARISON: 01/11/2022 HISTORY: abd pain, vomiting , hx of pancreatic CA CT DLP: 456.4 mGycm Automated exposure control for dose reduction was used. Images obtained from the diaphragm to the floor the pelvis with no contrast. Lung bases are clear. No pleural effusion. Heart size is normal. No pericardial effusion. There is air in the biliary tree consistent with reflux. There is biliary stent. No discrete liver ma ss. Spleen is intact. Exam limited by lack of IV contrast. The stomach is intact. There is large amou nt of abdominal ascites fluid. There is some mild ectasia of the pancreatic duct. No evidence of any significant mass at the pancreatic head. There is no adrenal mass. Kidneys have normal size. No hydronephrosis. The ureters are not dilated. N o retroperitoneal adenopathy. There are multiple dilated loops of fluid-filled small bowel in the low er abdomen. No inguinal hernia. No free air. The lumbar vertebra. No compression fracture. There is narrowing at L4-5 disc space. The bony pelvis is intact. Hip joints are intact. IMPRESSION: Compared to previous exam there is development of significant increased abdominal ascites fluid. Ther e are some dilated multiple loops of small bowel with fluid that could be ileus or partial mechanical obstruction. No free air. Dilated bowel appears new compared to old exam.
[2022-02-20] MEDS ORDERED: ACETAMINOPHEN TAB 325 MG TAB PO PRN (23:21)
[2022-02-20] MEDS ORDERED: MORPHINE SULFATE 4 MG/ML SYRINGE IV PRN (23:21)
[2022-02-20] MEDS ORDERED: NALOXONE 0.4 MG/ML 1 ML VIAL IV PRN (23:21)
[2022-02-20 23:29] LABS: HCT 41.4 % (39.0-53.0); HGB 13.6 gm/dL (13.0-17.5); MCH 29.1 pg (25.0-35.0); MCHC 32.7 g/dL (31.0-37.0); MCV 88.9 fL (80.0-100.0); Mean Platelet Volume 8.7; Platelet Count 206 k/uL (150-450); RBC 4.66 m/uL (4.30-5.90); RDW 15.2 % (11.5-15.5); WBC 3.6 k/uL (3.8-10.6)
[2022-02-21 00:01] LABS: Band Neutrophils % 10 %; Eosinophils # (M) 0.04 k/uL (0-0.7); Lymphocytes # (M) 1.12 k/uL (1.0-4.8); Monocytes # (M) 0.43 k/uL (0-1.0); Neutrophils % (M) 46 %; Nucleated Red Blood Cells 0 /100 WBC (0-0); Total Cells Counted 100
[2022-02-21 00:04] LABS: Anisocytosis (M) Present; Poikilocytosis (M) Present
[2022-02-21] MEDS: SODIUM CHLORIDE 0.9% 1,000 ML IV SCH ×3 (00:08→14:11)
[2022-02-21] MEDS: ONDANSETRON 4 MG/2 ML VIAL IVP PRN ×3 (00:19→19:18)
[2022-02-21] MEDS ORDERED: SODIUM CHLORIDE 0.9% 1,000 ML IV ONE (00:41)
[2022-02-21] MEDS: PIPERACILLIN-TAZOBACTAM 3.375 GM in SODIUM CHLORIDE 0.9% 100 ML IVPB SCH ×3 (01:48→16:07)
[2022-02-21] MEDS: HYDROmorphone 0.5 MG/0.5 ML SYRINGE IVP PRN ×4 (01:51→19:18)
[2022-02-21] MEDS: PANTOPRAZOLE 40 MG/10 ML VIAL IV SCH (07:57)
--- NOTE | 2022-02-21 12:33 | P.GSCN ---
History of Present Illness Consult date: 02/21/22 History of present illness: CHIEF COMPLAINT: Abdominal pain HISTORY OF PRESENT ILLNESS: This is a 67-year-old male with a known history of pancreatic cancer. His chemotherapy is currently on hold. He follows with Dr. Moffett. Patient presents to the hospital with complaints of mid abdominal pain radiates to the sides for about 14 days. He has been vomiting bile. He reports that his abdomen is becoming more distended. He has been having liquidy stools and flatus. He reports no blood in the stools. Oral intake is decreased. He denies any fevers. Patient has required 2 paracentesis. His last paracentesis was on last week and had 6.1 L removed. His fluid from the paracentesis in January was positive for metastatic adenocarcinoma. Patient had a computed tomography scan of abdomen and pelvis that had shown increase abdominal ascites fluid. With dilated small bowel loops that could be ileus or partial mechanical obstruction. No evidence of free air. Surgical service consulted in regards to patient's abdominal pain with ileus versus partial small bowel obstruction. Patient seen and examined with Dr. guallpa PAST MEDICAL HISTORY: History of myocardial infarction with coronary artery disease and cardiac stents, pancreatic cancer, hyperlipidemia PAST SURGICAL HISTORY: See below MEDICATIONS: See below ALLERGIES: See below SOCIAL HISTORY: No illicit drug use. REVIEW OF SYSTEMS: CONSTITUTIONAL: Denies fever or chills. HEENT: Denies blurred vision, vision changes, or eye pain. Denies hemoptysis CARDIOVASCULAR: Denies chest pain or pressure. RESPIRATORY: No shortness of breath. GASTROINTESTINAL: See HPI for pertinent findings HEMATOLOGIC: Denies bleeding disorders. GENITOURINARY: Denies any blood in urine or increased urinary frequency. SKIN: Denies pruitis. Denies rash. PHYSICAL EXAM: VITAL SIGNS: Reviewed GENERAL: Well-developed in no acute distress. HEENT: No sclera icterus. Extraocular movements grossly intact. Moist buccal mucosa. Head is atraumatic, normocephalic. No nasal drainage. ABDOMEN: Soft. Distended. Evidence of ascites. Nontender NEUROLOGIC: Alert and oriented. Cranial nerves II through XII grossly intact. LABORATORY DATA: WBC is 3.6 hgb 13.6 platelets 206 INR 1.1 Sodium 129 potassium 4.1 BUN 21 creatinine 0.78 Lactic acid 2.5-1.0 Total bilirubin 0.8 AST 30 ALT 17 alk phos 226 CRP 5.5 Lipase 35 IMAGING: Computed tomography scan abdomen and pelvis there is development of significant increased abdominal ascites fluid. There are some dilated multiple loops of small bowel with fluid that could be ileus or partial mechanical obstruction. No free air. Dilated bowel appears new compared to old exam. ASSESSMENT: 1. Abdominal pain and abdominal distention 2. History of pancreatic cancer with cytology from paracentesis in January positive for metastatic adenocarcinoma 3. Ileus 4. Hyponatremia PLAN: -Advance diet to regular. Patient is having bowel movements -Consult palliative care service regarding metastatic pancreatic cancer -Recommend conservative management -No surgical intervention planned -Continue to correct the hyponatremia Thank you for this consultation Physician Cad Drafter note has been reviewed by physician. Signing provider agrees with the documented findings, assessment, and plan of care. Past Medical History Past Medical History: Coronary Artery Disease (CAD), Cancer, Hyperlipidemia, Myocardial Infarction ([place]) Additional Past Medical History / Comment(s): pancreatic cancer Last Myocardial Infarction Date:: 03/03/2016 History of Any Multi-Drug Resistant Organisms: None Reported Past Surgical History: Heart Catheterization With Stent, Orthopedic Surgery, Tonsillectomy Additional Past Surgical History / Comment(s): left knee surgery, mediport, paracentesis- last on Past Anesthesia/Blood Transfusion Reactions: Previous Problems w/ Anesthesia Additional Past Anesthesia/Blood Transfusion Reaction / Comm: took long time to wake up after knee surgery 1970 Date of Last Stent Placement:: 2016 Past Psychological History: No Psychological Hx Reported Additional Psychological History / Comment(s): Pt resides with his spouse and adult daughter. He is independent. Smoking Status: Former smoker Past Alcohol Use History: Occasional Additional Past Alcohol Use History / Comment(s): Pt started smoking in 1973. He is a ppd smoker quit 03/03/2016 . Past Drug Use History: Marijuana Additional Drug Use History / Comment(s): edibles - Past Family History Father Family Medical History: Renal Disease Additional Family Medical History / Comment(s): Father of renal failure at the age of 92. Mother Family Medical History: Cancer Additional Family Medical History / Comment(s): Mother in her 60's from some form of cancer that ended up in her lymph nodes. Medications and Allergies Home Medications Medication Instructions Recorded Confirmed Type Nitroglycerin Sl Tabs [Nitrostat] 0.4 mg SUBLINGUAL Q5M PRN #20 tab 03/06/16 02/20/22 Rx traMADol HCL [Ultram] 50 mg PO Q6H PRN 03/18/20 02/20/22 History Atorvastatin [Lipitor] 40 mg PO HS 02/14/21 02/20/22 History Aspirin [Adult Low Dose Aspirin EC] 81 mg PO Q48H 01/24/22 02/20/22 History Sennosides/Docusate Sodium [Senna 1 tab PO DAILY PRN 01/24/22 02/20/22 History Plus 8.6-50 mg Tablet] Gabapentin [Neurontin] 300 mg PO BID 02/20/22 02/20/22 History HYDROcodone/APAP 10-325MG [[place] 1 tab PO Q6HR PRN 02/20/22 02/20/22 History 10-325] Sennosides/Docusate Sodium [Senna 1 tab PO DAILY 02/20/22 02/20/22 History Plus 8.6-50 mg Tablet] fentaNYL 25MCG/HR PATCH [Duragesic 2 patch TRANSDERM Q72H 02/20/22 02/20/22 History 25MCG/HR] Allergies Allergy/AdvReac Type Severity Reaction Status Date / Time No Known Allergies Allergy Verified 02/20/22 22:17 Surgical - Exam Vital Signs Temp Pulse Resp BP Pulse Ox 97.7 F 100 20 93/57 100 02/20/22 17:23 02/20/22 17:23 02/20/22 17:23 02/20/22 17:23 02/20/22 17:23 Results - Labs 02/20/22 20:52 02/20/22 20:52 Abnormal Lab Results - Last 24 Hours (Table) 02/20/22 02/20/22 02/20/22 Range/Units 20:52 20:52 20:52 WBC 3.6 L (3.8-10.6) k/uL Sodium 129 L (137-145) mmol/L Chloride 95 L (98-107) mmol/L BUN 21 H (9-20) mg/dL Glucose 119 H (74-99) mg/dL Plasma Lactic Acid [place] (0.7-2.0) mmol/L Alkaline Phosphatase 226 H (38-126) U/L C-Reactive Protein 5.5 H (<1.0) mg/dL Total Protein 5.5 L (6.3-8.2) g/dL Albumin 3.0 L (3.5-5.0) g/dL Urine Protein 1+ H (Negative) Urine Ketones Trace H (Negative) Urine Bilirubin 1+ H (Negative) Hyaline Casts 29 H (0-2) /lpf Urine Mucus Many H (None) /hpf 02/20/22 Range/Units 20:52 WBC (3.8-10.6) k/uL Sodium (137-145) mmol/L Chloride (98-107) mmol/L BUN (9-20) mg/dL Glucose (74-99) mg/dL Plasma Lactic Acid [place] 2.5 H* (0.7-2.0) mmol/L Alkaline Phosphatase (38-126) U/L C-Reactive Protein (<1.0) mg/dL Total Protein (6.3-8.2) g/dL Albumin (3.5-5.0) g/dL Urine Protein (Negative) Urine Ketones (Negative) Urine Bilirubin (Negative) Hyaline Casts (0-2) /lpf Urine Mucus (None) /hpf Diabetes panel 02/20/22 Range/Units 20:52 Sodium 129 L (137-145) mmol/L Potassium 4.1 (3.5-5.1) mmol/L Chloride 95 L (98-107) mmol/L Carbon Dioxide 25 (22-30) mmol/L BUN 21 H (9-20) mg/dL Creatinine 0.78 (0.66-1.25) mg/dL Glucose 119 H (74-99) mg/dL Calcium 8.4 (8.4-10.2) mg/dL AST 30 (17-59) U/L ALT 17 (4-49) U/L Alkaline Phosphatase 226 H (38-126) U/L Total Protein 5.5 L (6.3-8.2) g/dL Albumin 3.0 L (3.5-5.0) g/dL Calcium panel 02/20/22 Range/Units 20:52 Calcium 8.4 (8.4-10.2) mg/dL Albumin 3.0 L (3.5-5.0) g/dL Pituitary panel 02/20/22 Range/Units 20:52 Sodium 129 L (137-145) mmol/L Potassium 4.1 (3.5-5.1) mmol/L Chloride 95 L (98-107) mmol/L Carbon Dioxide 25 (22-30) mmol/L BUN 21 H (9-20) mg/dL Creatinine 0.78 (0.66-1.25) mg/dL Glucose 119 H (74-99) mg/dL Calcium 8.4 (8.4-10.2) mg/dL Adrenal panel 02/20/22 Range/Units 20:52 Sodium 129 L (137-145) mmol/L Potassium 4.1 (3.5-5.1) mmol/L Chloride 95 L (98-107) mmol/L Carbon Dioxide 25 (22-30) mmol/L BUN 21 H (9-20) mg/dL Creatinine 0.78 (0.66-1.25) mg/dL Glucose 119 H (74-99) mg/dL Calcium 8.4 (8.4-10.2) mg/dL Total Bilirubin 0.8 (0.2-1.3) mg/dL AST 30 (17-59) U/L ALT 17 (4-49) U/L Alkaline Phosphatase 226 H (38-126) U/L Total Protein 5.5 L (6.3-8.2) g/dL Albumin 3.0 L (3.5-5.0) g/dL
[2022-02-21] MEDS: PROCHLORPERAZINE INJ 10 MG/2 ML VIAL IVP PRN (14:09)
[2022-02-21 14:13] VITALS: BMI 19.9
--- NOTE | 2022-02-21 14:16 | P.CONS ---
History of Present Illness - Reason for Consult Consult date: 02/21/22 [facility] Requesting physician: Michaela Berry - Chief Complaint Abdominal pain, N&V - History of Present Illness The patient is a 67-year-old male with a past medical history significant for coronary artery disease, hyperlipidemia, [place], and pancreatic cancer. He presented to the emergency department on 02/20/22 with complaints of abdominal pain, nausea, and vomiting. He states that he usually has mild pain however for the past 3 weeks pain has increased. Pain is mostly in the upper abdomen with radiation to the back. He follows with Dr. Moffett for his pancreatic cancer in his chemotherapy is currently on hold. Abdomen/pelvis CT without contrastreveals a significant increased amount of abdominal ascites fluid compared to previous exam, and dilated small bowel loops that could be ileus or partial mechanical obstruction. No evidence of free air. Patient has required 2 paracentesis. His last paracentesis was on last week and had 6.1 L removed. Surgical service consulted in regards to patient's abdominal pain with ileus versus partial small bowel obstruction. No surgica intervention planned. Cytology from paracentesis in January positive for metastatic adenocarcinoma. Review of Systems Constitutional: Reports poor appetite, Reports weakness, Denies chills, Denies fever Cardiovascular: Denies chest pain, Denies palpitations, Denies shortness of breath Respiratory: Denies cough Gastrointestinal: Reports abdominal pain, Reports constipation, Reports loss of appetite, Reports nausea, Reports vomiting Past Medical History Past Medical History: Coronary Artery Disease (CAD), Cancer, Hyperlipidemia, Myocardial Infarction ([place]) Additional Past Medical History / Comment(s): pancreatic cancer Last Myocardial Infarction Date:: 03/03/2016 History of Any Multi-Drug Resistant Organisms: None Reported Past Surgical History: Heart Catheterization With Stent, Orthopedic Surgery, Tonsillectomy Additional Past Surgical History / Comment(s): left knee surgery, mediport, paracentesis- last on Past Anesthesia/Blood Transfusion Reactions: Previous Problems w/ Anesthesia Additional Past Anesthesia/Blood Transfusion Reaction / Comm: took long time to wake up after knee surgery 1970 Date of Last Stent Placement:: 2016 Past Psychological History: No Psychological Hx Reported Additional Psychological History / Comment(s): Pt resides with his spouse and adult daughter. He is independent. Smoking Status: Former smoker Past Alcohol Use History: Occasional Additional Past Alcohol Use History / Comment(s): Pt started smoking in 1973. He is a ppd smoker quit 03/03/2016 . Past Drug Use History: Marijuana Additional Drug Use History / Comment(s): edibles - Past Family History Father Family Medical History: Renal Disease Additional Family Medical History / Comment(s): Father of renal failure at the age of 92. Mother Family Medical History: Cancer Additional Family Medical History / Comment(s): Mother in her 60's from some form of cancer that ended up in her lymph nodes. Medications and Allergies Home Medications Medication Instructions Recorded Confirmed Type Nitroglycerin Sl Tabs [Nitrostat] 0.4 mg SUBLINGUAL Q5M PRN #20 tab 03/06/16 02/20/22 Rx traMADol HCL [Ultram] 50 mg PO Q6H PRN 03/18/20 02/20/22 History Atorvastatin [Lipitor] 40 mg PO HS 02/14/21 02/20/22 History Aspirin [Adult Low Dose Aspirin EC] 81 mg PO Q48H 01/24/22 02/20/22 History Sennosides/Docusate Sodium [Senna 1 tab PO DAILY PRN 01/24/22 02/20/22 History Plus 8.6-50 mg Tablet] Gabapentin [Neurontin] 300 mg PO BID 02/20/22 02/20/22 History HYDROcodone/APAP 10-325MG [[place] 1 tab PO Q6HR PRN 02/20/22 02/20/22 History 10-325] Sennosides/Docusate Sodium [Senna 1 tab PO DAILY 02/20/22 02/20/22 History Plus 8.6-50 mg Tablet] fentaNYL 25MCG/HR PATCH [Duragesic 2 patch TRANSDERM Q72H 02/20/22 02/20/22 History 25MCG/HR] Allergies Allergy/AdvReac Type Severity Reaction Status Date / Time No Known Allergies Allergy Verified 02/20/22 22:17 Physical Exam Vitals: Vital Signs Temp Pulse Pulse Resp BP BP Pulse Ox 02/21/22 12:05 98.1 F 73 16 104/67 91 L 02/21/22 07:04 98.3 F 87 16 136/83 99 02/21/22 01:48 98.2 F 93 16 127/75 100 02/21/22 01:01 98.3 F 95 18 97 02/20/22 23:01 94 18 97/62 97 02/20/22 17:23 97.7 F 100 20 93/57 100 Intake and Output 02/20/22 02/21/22 02/21/22 22:59 06:59 14:59 Intake Total 1099 Output Total 100 Balance 999 Intake: Intake, IV Titration 1099 Amount Piperacillin-Tazobactam 3 100 .375 gm In Sodium Chloride 0.9% 100 ml @ 25 mls/hr IVPB Q8H [facility] Rx#: [id number] Sodium Chloride 0.9% 1, 999 000 ml @ 999 mls/hr IV . Q1H1M ONE Rx#:[id number] Output: Gastric Drainage 100 Other: Weight 59.421 kg 59.421 kg General: Well developed, well nourished. Chronically ill appearing HEENT: Head is atraumatic, normocephalic. Mucus membranes dry. Lungs: Respirations even and nonlabored. On RA Abdomen/GI: Soft, distended. No guarding, rigidity, or abdominal tenderness. : No suprapubic tenderness. Musculoskeletal/ Extremities: [place], no joint deformity or swelling. No gross atrophy. + generalized weakness Skin: Warm and dry Neurologic: Awake, alert and oriented times 3. CN II-XII grossly intact. No focal deficits. Psychiatric: Appropriate mood and affect. Results CBC & Chem 7: 02/20/22 20:52 02/20/22 20:52 Labs: Abnormal Lab Results - Last 24 Hours (Table) 02/20/22 02/20/22 02/20/22 Range/Units 20:52 20:52 20:52 WBC 3.6 L (3.8-10.6) k/uL Sodium 129 L (137-145) mmol/L Chloride 95 L (98-107) mmol/L BUN 21 H (9-20) mg/dL Glucose 119 H (74-99) mg/dL Plasma Lactic Acid [place] (0.7-2.0) mmol/L Alkaline Phosphatase 226 H (38-126) U/L C-Reactive Protein 5.5 H (<1.0) mg/dL Total Protein 5.5 L (6.3-8.2) g/dL Albumin 3.0 L (3.5-5.0) g/dL Urine Protein 1+ H (Negative) Urine Ketones Trace H (Negative) Urine Bilirubin 1+ H (Negative) Hyaline Casts 29 H (0-2) /lpf Urine Mucus Many H (None) /hpf 02/20/22 Range/Units 20:52 WBC (3.8-10.6) k/uL Sodium (137-145) mmol/L Chloride (98-107) mmol/L BUN (9-20) mg/dL Glucose (74-99) mg/dL Plasma Lactic Acid [place] 2.5 H* (0.7-2.0) mmol/L Alkaline Phosphatase (38-126) U/L C-Reactive Protein (<1.0) mg/dL Total Protein (6.3-8.2) g/dL Albumin (3.5-5.0) g/dL Urine Protein (Negative) Urine Ketones (Negative) Urine Bilirubin (Negative) Hyaline Casts (0-2) /lpf Urine Mucus (None) /hpf CT Scan - head: report reviewed CT scan - pelvis: report reviewed Assessment and Plan Assessment: Social * Occupation - Retired * Marital status - , Darlene * Children/grandchildren - 2 adult children * Residence - House with * Who do you reside with - * ETOH - No * Tobacco - Former smoker * Illicit drugs - No Spiritual/Cultural * A spiritual person - No * Buddhist - n/a * Belong to a particular gnosticist - no * Beliefs a source of comfort and strength - no * Episcopal or cultural practices restrictions - none * EOL considerations/rituals - no Functional Assessment * Able to walk independently - Yes * Assistive devices - None * Able to use the bathroom independently - Yes * Continent - Yes * Require assistance bathing- No * Able to feed self - Yes * Who prepares meals - * Able to clean house/do laundry - Yes * Transportation - Patient drives * Able to shop - Yes * Who manages medications -Patient * Who manages finances - Patient PPS score - 80% Psychological/Emotional * Dementia present - No * Insight and judgment - Intact * Depression - No * Suicidal thoughts - No * Good support system - Yes, family * Patients goals - prolonged survival * Frequent hospitalizations - No * Desire to keep coming back to the hospital for treatment - Yes Symptoms * Pain - score 7/10 abdominal pain, Continue Tylenol, Dilaudid, morphine. * Fatigue - Yes * SOB - No * Insomnia - No * N/V - Yes, Continue Zofran, add Compazine * Anxiety - No * Depression - No * Confusion - No * Agitation - No * Hallucinations - No * Appetite/weight loss - Unable to tolerate oral diet 2/2 N&V. * Dysphagia - No * Constipation - Yes, LBM today "small" * Incontinence - No * Itch - No * Cough - No Plan: Summary/Goals - The patient was resting in bed. Information provided regarding palliative care philosophies and services. The patient states that he understands that the cytology report from the paracentesis fluid showed meta static adenocarcinoma. He spoke to oncology CANNERY TENDER ENGINEER this morning, but is unsure of what the plan is. He only knows that his chemotherapy is on hold for now. He stated that Dr. Moffett has recently increased his Fentanyl patch dosage from 25 to 50 mcgs. He states his pain is managed well with his current regimen. He states the pain gets worse as the ascites gets larger. He also sufferers from nausea and dry heaving. He has been unable to eat or drink anything. Zofran gives him some relief, but it does not last very long. Compazine added. He states that his goal at this point is for prolonged survival and to continue aggressive treatment. He is waiting to talk to Dr. Moffett for a treatment plan. Advanced Directives - None on file Code Status - Full Code Thank you for this consultation Urszula Cabzeas [facility] Palliative Care Spectralink [phone] Email: [email or web address] Time with Patient: Greater than 30
--- NOTE | 2022-02-21 17:13 | P.HPIM ---
History of Present Illness H&P Date: 02/21/22 Supplies and 67-year-old gentleman with a past medical history significant for CAD, VA, cardiac stents, prior nicotine dependence, hyperlipidemia and pancreatic cancer, presented to the ER with upper abdominal pain worsening over the last 3 weeks, radiating to his back, accompanied by persistent nausea ,vomiting-bile, decreased oral intake. Last bowel movement yesterday, nonbloody /liquidy.Reports last he had his second paracentesis with 6 L of yellowish fluid drained. Cytology from initial paracentesis in January 2022 reported positive for metastatic adenocarcinoma.Patient follows with oncologist, . Abdomen/pelvis CT reveals a significant increased amount of abdominal ascites fluid, dilated small bowel loops that could be ileus or partial mechanical obstruction. No evidence of free air. NPO,General surgery and oncology consults in place. Receiving IV fluids and IV antibiotics of Zosyn. Chemotherapy currently on hold .Patient states he is scheduled to participate in a clinical trial at [facility] with Dr. Brewster. Denies chest pain, palpitations or shortness of breath. Denies cough congestion chills or fever. Afebrile, WBC 3.6, hemoglobin 13.6, platelets 206, neutrophils 64, INR 1.1, sodium 129, potassium 4.1, bicarb 25, BUN 21, creatinine 0.78, lactic acid 2.5 decreased to 1.0 with IV fluid hydration, calcium 8.4, T bili 0.8, AST 0.8, ALT 17, alk phos elevated to 26, total protein 5.5 albumin 3.0 elevated CRP 5.5, amylase 35, lipase 35, UA negative. Review of Systems ROS Statement: Those systems with pertinent positive or pertinent negative responses have been documented in the HPI. ROS Other: All systems not noted in ROS Statement are negative. Past Medical History Past Medical History: Coronary Artery Disease (CAD), Cancer, Hyperlipidemia, Myocardial Infarction ([place]) Additional Past Medical History / Comment(s): pancreatic cancer Last Myocardial Infarction Date:: 03/03/2016 History of Any Multi-Drug Resistant Organisms: None Reported Past Surgical History: Heart Catheterization With Stent, Orthopedic Surgery, Tonsillectomy Additional Past Surgical History / Comment(s): left knee surgery, charles malcolm racentesis- last on Thursday Past Anesthesia/Blood Transfusion Reactions: Previous Problems w/ Anesthesia Additional Past Anesthesia/Blood Transfusion Reaction / Comment(s): took long time to wake up after knee surgery 1970 Date of Last Stent Placement:: 2016 Past Psychological History: No Psychological Hx Reported Additional Psychological History / Comment(s): Pt resides with his spouse and adult daughter. He is independent. Smoking Status: Former smoker Past Alcohol Use History: Occasional Additional Past Alcohol Use History / Comment(s): Pt started smoking in 1973. He is a ppd smoker quit 03/03/2016 . Past Drug Use History: Marijuana Additional Drug Use History / Comment(s): edibles - Past Family History Father Family Medical History: Renal Disease Additional Family Medical History / Comment(s): Father of renal failure at the age of 92. Mother Family Medical History: Cancer Additional Family Medical History / Comment(s): Mother in her 60's from some form of cancer that ended up in her lymph nodes. Medications and Allergies Home Medications Medication Instructions Recorded Confirmed Type Nitroglycerin Sl Tabs [Nitrostat] 0.4 mg SUBLINGUAL Q5M PRN #20 tab 03/06/16 02/20/22 Rx traMADol HCL [Ultram] 50 mg PO Q6H PRN 03/18/20 02/20/22 History Atorvastatin [Lipitor] 40 mg PO HS 02/14/21 02/20/22 History Aspirin [Adult Low Dose Aspirin EC] 81 mg PO Q48H 01/24/22 02/20/22 History Sennosides/Docusate Sodium [Senna 1 tab PO DAILY PRN 01/24/22 02/20/22 History Plus 8.6-50 mg Tablet] Gabapentin [Neurontin] 300 mg PO BID 02/20/22 02/20/22 History HYDROcodone/APAP 10-325MG [[place] 1 tab PO Q6HR PRN 02/20/22 02/20/22 History 10-325] Sennosides/Docusate Sodium [Senna 1 tab PO DAILY 02/20/22 02/20/22 History Plus 8.6-50 mg Tablet] fentaNYL 25MCG/HR PATCH [Duragesic 2 patch TRANSDERM Q72H 02/20/22 02/20/22 History 25MCG/HR] Allergies Allergy/AdvReac Type Severity Reaction Status Date / Time No Known Allergies Allergy Verified 02/20/22 22:17 Physical Exam Vitals: Vital Signs Temp Pulse Pulse Resp BP BP Pulse Ox 02/21/22 12:05 98.1 F 73 16 104/67 91 L 02/21/22 07:04 98.3 F 87 16 136/83 99 02/21/22 01:48 98.2 F 93 16 127/75 100 02/21/22 01:01 98.3 F 95 18 97 02/20/22 23:01 94 18 97/62 97 02/20/22 17:23 97.7 F 100 20 93/57 100 Intake and Output 02/21/22 02/21/22 02/21/22 06:59 14:59 22:59 Intake Total 1099 Output Total 100 Balance 999 Intake: Intake, IV Titration 1099 Amount Piperacillin-Tazobactam 3 100 .375 gm In Sodium Chloride 0.9% 100 ml @ 25 mls/hr IVPB Q8H [facility] Rx#: [id number] Sodium Chloride 0.9% 1, 999 000 ml @ 999 mls/hr IV . Q1H1M ONE Rx#:[id number] Output: Gastric Drainage 100 Other: # Voids 2 # Bowel Movements 2 Weight 59.421 kg 59.421 kg PHYSICAL EXAMINATION: GENERAL: Alert and oriented 3, lying in the bed, no acute distress. HEENT: Atraumatic, Normocephalic. Oral mucosa dry. NECK: Supple, no JVD. CHEST EXAMINATION: unlabored ,lung michael clear to auscultation CARDIAC: Normal S1, S2 with no gallops. No murmurs ABDOMEN: Soft, distended, mild diffuse tenderness, positive ascites. Hypoactive bowel sounds. No guarding, no rigidity Extremities: reveal no edema. No clubbing or cyanosis Neurological: cranial nerves 2 through 12 grossly intact No focal deficits. Skin: warm and dry, No rash noted Results CBC & Chem 7: 02/20/22 20:52 02/20/22 20:52 Labs: Abnormal Lab Results - Last 24 Hours (Table) 02/20/22 02/20/22 02/20/22 Range/Units 20:52 20:52 20:52 WBC 3.6 L (3.8-10.6) k/uL Sodium 129 L (137-145) mmol/L Chloride 95 L (98-107) mmol/L BUN 21 H (9-20) mg/dL Glucose 119 H (74-99) mg/dL Plasma Lactic Acid Yosi (0.7-2.0) mmol/L Alkaline Phosphatase 226 H (38-126) U/L C-Reactive Protein 5.5 H (<1.0) mg/dL Total Protein 5.5 L (6.3-8.2) g/dL Albumin 3.0 L (3.5-5.0) g/dL Urine Protein 1+ H (Negative) Urine Ketones Trace H (Negative) Urine Bilirubin 1+ H (Negative) Hyaline Casts 29 H (0-2) /lpf Urine Mucus Many H (None) /hpf 02/20/22 Range/Units 20:52 WBC (3.8-10.6) k/uL Sodium (137-145) mmol/L Chloride (98-107) mmol/L BUN (9-20) mg/dL Glucose (74-99) mg/dL Plasma Lactic Acid Yosi 2.5 H* (0.7-2.0) mmol/L Alkaline Phosphatase (38-126) U/L C-Reactive Protein (<1.0) mg/dL Total Protein (6.3-8.2) g/dL Albumin (3.5-5.0) g/dL Urine Protein (Negative) Urine Ketones (Negative) Urine Bilirubin (Negative) Hyaline Casts (0-2) /lpf Urine Mucus (None) /hpf Assessment and Plan Assessment: Abdominal pain, CT reporting possible ileus, possible bowel obstruction Dehydration secondary to the above Leukopenia Lactic acidosis, resolved with IV fluid hydration Hyponatremia History of pancreatic cancer, metastatic adenocarcinoma, diagnosed January 2022 CAD with history of stenting Prior history of smoking Osteoarthritis Moderate protein calorie malnutrition, BMI 19.9 Plan: Continue on current medication regime ,monitoring and symptomatic treatment. Maintain IV fluid hydration, antibiotics. Oncology and General surgery consults in place. Palliative care consulted. Prognosis guarded given multiple complex medical issues. Close monitoring of WBC,electrolytes, renal function with repeat labs ordered for a.m. The impression and plan of care has been dictated as directed. : I performed a history and examination of this patient, discussed the same with the dictator. I agree with the dictator's note ,documented as a scribe. Any additional findings or plans will be noted.
--- NOTE | 2022-02-21 17:49 | P.CONS ---
History of Present Illness - Reason for Consult Consult date: 02/21/22 pancreatic cancer Requesting physician: Omari Gamble - Chief Complaint abdominal pain - History of Present Illness Mr Perdomo is a pleasant 67-year-old male patient of Dr. Moffett who is currently admitted for abdominal pain. Patient has a history of metastatic pancreatic Adenocarcinoma. He reports the last 14 days, lower abdominal pain, radiating to the back. Not eating made the pain worse but, patient couldn't eat secondary to nausea, resulting in very poor oral intake. His pain meds were not providing much relief. Dr. Moffett did increase his fentanyl patch from 25 g to 50 g 02/20/22. He reports his last bowel movement was 5-6 days ago, stool he does have is watery and associated with cramping. He denied rectal pain, mucous from the rectum, black or bloody discharge. Patient has long history of smoking, quit in 2015. Chronic, fairly significant alcohol use up to about 8 beers a day for many years. History of early-stage prostate cancer in 2019, on observation with Urology. Patient received 5-FU and onyvide, 02/07/22. This was being used as bridging treatment in anticipation of patient beginning a clinical trial, it is now on hold. Patient is going to be seeing Dr. Brewster in follow-up on Sunday for clinical trial. Oncology history: Patient presented to primary care when family started noticing Yellowing of the skin and eyes, patient noted dark urine. 02/17/20 showed a bilirubin of 13, alkaline phosphatase 957. Imaging showed common bile duct dilation 1.8 cm with intrahepatic ductal dilation, dilatation of the main pancreatic duct up to 6 cm. There was also some moderate circumferential rectal wall thickening and prostatomegaly. Referred to GI at [facility] for ERCP and EUS. He he was also referred to Dr. Moffett. 02/24/20 he had successful stent placement, EUS revealed 3 x 2.9 cm mass in the head of the pancreas causing obstruction. Staging based on the EUS was felt to be T2, N1 MX. Official report noted that the patient was not surgical. However, he was referred to Dr. Zavaleta, staging PET, showed no evidence of metastatic disease. He had a port placed 03/23/20 with extensive bruising, PTT showed isolated elevation, diagnosed with acquired factor VIII inhibitor. He was treated with Cytoxan and steroids. This was felt to be rel ated to pancreatic cancer. Patient continued on oral Cytoxan and prednisone and was finally stable in April. Started FOLFIRINOX 05/03/20, cycle 2 was held as he had positive blood cultures for Escherichia coli. Treatment follow-up CT from 07/16/20, showed multiple liver lesions, largest about 4 cm-Previous CT was with pancreas protocol this one was not. MRI was recommended, report indicated that the lesions were benign. Referred back to surgery at [facility]. Unfortunately, on their evaluation off the current and previous CT scans, it was felt that he was likely unresectable because of involvement of the inferior portion of the diaphragm by the tumor. The patient was started back on systemic chemotherapy. He continued on treatment for a total of 11 cycles. On treatment follow-up imaging concerns for lymphadenopathy. Labs showed persistently increasing bilirubin. Patient was sent back to [facility]. In October he had ERCP, that revealed complete obstruction of the CBD that appeared to be due to progression of the pancreatic head tumor. Underwent a PTC for bile drainage. PET restaging showed some mild uptake at the site of the primary tumor, no evidence of liver or lymph node metastases. Case was discussed with another radiologist, confirmed. Patient was continued on the same regimen and completed 12 cycles 12/16/20, tumor markers improved. He was then seen again by Dr. Zavaleta, imaging appeared to show peritoneal metastases. An GS showed no actionable mut ations. He was started on Gemzar/Abraxane 02/10/21. He had 7 cycles and was placed on a treatment break. October 2021 CA-19-9 showed a major increase to 3652 from 300 previously, resumed back on gem/Abraxane. CA-19-9 progressed to the 10,000 range, treatment was held. CT showed evidence of progression and omentum and development of ascites. Patient was started on 5-FU and Onivyde, starting 02/10/22, and is status post 2 cycles. He was referred for clinical trial enrollment to the [facility]. It was recommended that he be reevaluated from the same if he showed progression on the current regimen. Patient has symptoms suggestive of progressive disease including recurrent ascites, 2 paracentesis in the last 3-4 weeks, 6.8 L last week. Review of Systems 10 point review of systems is negative except as stated in HPI Past Medical History Past Medical History: Coronary Artery Disease (CAD), Cancer, Hyperlipidemia, Myocardial Infarction ([place]) Additional Past Medical History / Comment(s): pancreatic cancer Last Myocardial Infarction Date:: 03/03/2016 History of Any Multi-Drug Resistant Organisms: None Reported Past Surgical History: Heart Catheterization With Stent, Orthopedic Surgery, Tonsillectomy Additional Past Surgical History / Comment(s): left knee surgery, mediport, para centesis- last on Past Anesthesia/Blood Transfusion Reactions: Previous Problems w/ Anesthesia Additional Past Anesthesia/Blood Transfusion Reaction / Comm: took long time to wake up after knee surgery 1970 Date of Last Stent Placement:: 2016 Past Psychological History: No Psychological Hx Reported Additional Psychological History / Comment(s): Pt resides with his spouse and adult daughter. He is independent. Smoking Status: Former smoker Past Alcohol Use History: Occasional Additional Past Alcohol Use History / Comment(s): Pt started smoking in 1973. He is a ppd smoker quit 03/03/2016 . Past Drug Use History: Marijuana Additional Drug Use History / Comment(s): edibles - Past Family History Father Family Medical History: Renal Disease Additional Family Medical History / Comment(s): Father of renal failure at the age of 92. Mother Family Medical History: Cancer Additional Family Medical History / Comment(s): Mother in her 60's from some form of cancer that ended up in her lymph nodes. Medications and Allergies Home Medications Medication Instructions Recorded Confirmed Type Nitroglycerin Sl Tabs [Nitrostat] 0.4 mg SUBLINGUAL Q5M PRN #20 tab 03/06/16 02/20/22 Rx traMADol HCL [Ultram] 50 mg PO Q6H PRN 03/18/20 02/20/22 History Atorvastatin [Lipitor] 40 mg PO HS 02/14/21 02/20/22 History Aspirin [Adult Low Dose Aspirin EC] 81 mg PO Q48H 01/24/22 02/20/22 History Sennosides/Docusate Sodium [Senna 1 tab PO DAILY PRN 01/24/22 02/20/22 History Plus 8.6-50 mg Tablet] Gabapentin [Neurontin] 300 mg PO BID 02/20/22 02/20/22 History HYDROcodone/APAP 10-325MG [[place] 1 tab PO Q6HR PRN 02/20/22 02/20/22 History 10-325] Sennosides/Docusate Sodium [Senna 1 tab PO DAILY 02/20/22 02/20/22 History Plus 8.6-50 mg Tablet] fentaNYL 25MCG/HR PATCH [Duragesic 2 patch TRANSDERM Q72H 02/20/22 02/20/22 History 25MCG/HR] Allergies Allergy/AdvReac Type Severity Reaction Status Date / Time No Known Allergies Allergy Verified 02/20/22 22:17 Physical Exam Vitals: Vital Signs Temp Pulse Pulse Resp BP BP Pulse Ox 02/21/22 07:04 98.3 F 87 16 136/83 99 02/21/22 01:48 98.2 F 93 16 127/75 100 02/21/22 01:01 98.3 F 95 18 97 02/20/22 23:01 94 18 97/62 97 02/20/22 17:23 97.7 F 100 20 93/57 100 Intake and Output 02/20/22 02/21/22 02/21/22 22:59 06:59 14:59 Intake Total 1099 Output Total 100 Balance 999 Intake: Intake, IV Titration 1099 Amount Piperacillin-Tazobactam 3 100 .375 gm In Sodium Chloride 0.9% 100 ml @ 25 mls/hr IVPB Q8H [facility] Rx#: [id number] Sodium Chloride 0.9% 1, 999 000 ml @ 999 mls/hr IV . Q1H1M ONE Rx#:[id number] Output: Gastric Drainage 100 Other: Weight 59.421 kg 59.421 kg - Constitutional General appearance: average body habitus, cooperative, no acute distress - EENT Eyes: anicteric sclerae, EOMI ENT: hearing grossly normal, normal oropharynx - Neck Neck: no lymphadenopathy - Respiratory Respiratory: bilateral: CTA - Cardiovascular Rhythm: regular Heart sounds: normal: S1, S2 Abnormal Heart Sounds: no systolic murmur, no diastolic murmur, no rub, no S3 Gallop, no S4 Gallop, no click, no other leg Peripheral Edema: bilateral: None - Gastrointestinal lower abd, tinkling BS General gastrointestinal: distended, soft, tenderness - Neurologic Neurologic: CNII-XII intact - Musculoskeletal Musculoskeletal: strength equal bilaterally - Psychiatric Psychiatric: A&O x's 3, appropriate affect, intact judgment & insight Results CBC & Chem 7: 01/09/23 20:52 02/20/22 20:52 Labs: Abnormal Lab Results - Last 24 Hours (Table) 02/20/22 02/20/22 02/20/22 Range/Units 20:52 20:52 20:52 WBC 3.6 L (3.8-10.6) k/uL Sodium 129 L (137-145) mmol/L Chloride 95 L (98-107) mmol/L BUN 21 H (9-20) mg/dL Glucose 119 H (74-99) mg/dL Plasma Lactic Acid Yosi (0.7-2.0) mmol/L Alkaline Phosphatase 226 H (38-126) U/L C-Reactive Protein 5.5 H (<1.0) mg/dL Total Protein 5.5 L (6.3-8.2) g/dL Albumin 3.0 L (3.5-5.0) g/dL Urine Protein 1+ H (Negative) Urine Ketones Trace H (Negative) Urine Bilirubin 1+ H (Negative) Hyaline Casts 29 H (0-2) /lpf Urine Mucus Many H (None) /hpf 02/20/22 Range/Units 20:52 WBC (3.8-10.6) k/uL Sodium (137-145) mmol/L Chloride (98-107) mmol/L BUN (9-20) mg/dL Glucose (74-99) mg/dL Plasma Lactic Acid Yosi 2.5 H* (0.7-2.0) mmol/L Alkaline Phosphatase (38-126) U/L C-Reactive Protein (<1.0) mg/dL Total Protein (6.3-8.2) g/dL Albumin (3.5-5.0) g/dL Urine Protein (Negative) Urine Ketones (Negative) Urine Bilirubin (Negative) Hyaline Casts (0-2) /lpf Urine Mucus (None) /hpf CT scan - abdomen: report reviewed CT scan - pelvis: report reviewed Assessment and Plan (1) Pancreatic adenocarcinoma Current Visit: Yes Status: Chronic Priority: Medium Code(s): C25.9 - MALIGNANT NEOPLASM OF PANCREAS, UNSPECIFIED SNOMED Code(s): 026290833 Plan: Abdominal pain and distention -CT showed increased ascites, dilated bowel questionable ileus. When seen in the a.m. patient reported no bowel movement for at least 5-6 days. Noted in the chart later in the day, patient had 5 bowel movements. He has been evaluated by Surgeon. No acute intervention. Patient has been started on a diet. Will see how he is doing in the a.m. Abdominal distention -Recurrent malignant ascites-Positive cytology in January -6.8 L taken off last week -If patient is still having abdominal discomfort in the a.m., will request US to assess for possible paracentesis. Pancreatic adenocarcinoma -Status post 2 cycles of 5-FU and onyvide, most recent treatment 02/07. Based on patient's symptoms, Recurrent malignant ascites, suspect that patient is having progressive disease. Current treatment regimen is held. Patient has seen Dr. Brewster regarding clinical trial. He is due to meet again with him next Sunday.
[2022-02-22] MEDS: SODIUM CHLORIDE 0.9% 1,000 ML IV SCH ×3 (00:34→16:38)
[2022-02-22] MEDS: PIPERACILLIN-TAZOBACTAM 3.375 GM in SODIUM CHLORIDE 0.9% 100 ML IVPB SCH ×3 (00:34→16:31)
[2022-02-22] MEDS: HYDROmorphone 0.5 MG/0.5 ML SYRINGE IVP PRN ×4 (00:48→19:32)
[2022-02-22] MEDS: ONDANSETRON 4 MG/2 ML VIAL IVP PRN ×2 (08:16→16:31)
[2022-02-22] MEDS: PANTOPRAZOLE 40 MG/10 ML VIAL IV SCH (08:17)
[2022-02-22 09:40] LABS: Basophils # (A) 0.01 X 10*3/uL (0.00-0.10); Basophils % (A) 0.3 %; Eosinophils # (A) 0.06 X 10*3/uL (0.04-0.35); Eosinophils % (A) 1.7 %; HCT 33.8 % (39.6-50.0); HGB 10.6 g/dL (13.0-17.0); Immature Grans, Automated 0.6 %; Lymphocytes # (A) 0.97 X 10*3/uL (0.90-5.00); Lymphocytes % (A) 27.1 %; MCH 29.2 pg (27.0-32.0); MCHC 31.4 g/dL (32.0-37.0); MCV 93.1 fL (80.0-97.0); Mean Platelet Volume 9.1 fL (9.5-12.2); Monocytes # (A) 1.12 X 10*3/uL (0.20-1.00); Monocytes % (A) 31.3 %; NRBC Per 100 WBC 0 /100 WBCS (0.0-0.0); Platelet Count 219 X 10*3/uL (140-440); RBC 3.63 X 10*6/uL (4.40-5.60); RDW 14.9 % (11.5-14.5); WBC 3.58 X 10*3/uL (4.50-10.00)
[2022-02-22 10:01] LABS: Anion Gap 11.2 mmol/L (10.00-18.00); BUN/Creat Ratio 19.13 Ratio (12.00-20.00); Blood Urea Nitrogen 15.8 mg/dL (9.0-27.0); Calcium 7.7 mg/dL (8.7-10.3); Carbon Dioxide 20.5 mmol/L (20.0-27.5); Magnesium 1.8 mg/dL (1.5-2.4); Non-African American GFR(CKD) 90.6 (60.0-200.0); Potassium 3.5 mmol/L (3.5-5.5)
--- NOTE | 2022-02-22 11:20 | P.PN ---
Subjective Progress Note Date: 02/22/22 Principal diagnosis: Prostate cancer The patient is a 67-year-old male with a past medical history significant for coronary artery disease, hyperlipidemia, MS, and pancreatic cancer. He presented to the emergency department on 02/20/22 with complaints of abdominal pain, nausea, and vomiting. He states that he usually has mild pain however for the past 3 weeks pain has increased. Pain is mostly in the upper abdomen with radiation to the back. He follows with Dr. Moffett for his pancreatic cancer in his chemotherapy is currently on hold. Abdomen/pelvis CT without contrast reveals a significant increased amount of abdominal ascites fluid compared to previous exam, and dilated small bowel loops that could be ileus or partial mechanical obstruction. No evidence of free air. Patient has required 2 paracentesis. His last paracentesis was on last week and had 6.1 L removed. Surgical service consulted in regards to patient's abdominal pain with ileus versus partial small bowel obstruction. No surgical intervention planned. Cytology from paracentesis in January positive for metastatic adenocarcinoma. 02/22 The patient was resting in bed. Information provided regarding palliative care philosophies and services. The patient states that he understands that the cytology report from the paracentesis fluid showed metastatic adenocarcinoma. He spoke to oncology [employer] this morning, but is unsure of what the plan is. He only knows that his chemotherapy is on hold for now. He stated that Dr. Moffett has recently increased his Fentanyl patch dosage from 25 to 50 mcgs. He states his pain is managed well with his current regimen. He states the pain gets worse as the ascites gets larger. He also sufferers from nausea and dry heaving. He has been unable to eat or drink anything. Zofran gives him some relief, but it does not last very long. Compazine added. He states that his goal at this point is for prolonged survival and to continue aggressive lucretia tment. He is waiting to talk to Dr. Moffett for a treatment plan. Objective - Vital Signs Vital signs: Vital Signs Temp 97.9 F 02/22/22 07:40 Pulse 80 02/22/22 07:40 Resp 16 02/22/22 07:40 BP 95/61 02/22/22 07:40 Pulse Ox 98 02/22/22 07:40 FiO2 Intake & Output 02/21/22 02/22/22 02/22/22 18:59 06:59 18:59 Weight 59.421 kg Other: # Voids 4 2 # Bowel Movements 3 0 - Exam General: Well developed, well nourished. Chronically ill appearing HEENT: Head is atraumatic, normocephalic. Mucus membranes dry. Lungs: Respirations even and nonlabored. On RA Abdomen/GI: Soft, distended, and TTP. : No suprapubic tenderness. Musculoskeletal/ Extremities: TOLENTINO, no joint deformity or swelling. No gross atrophy. + generalized weakness Skin: Warm and dry Neurologic: Awake, alert and oriented times 3. CN II-XII grossly intact. No focal deficits. Psychiatric: Appropriate mood and affect. - Labs CBC & Chem 7: 02/22/22 06:07 02/22/22 06:07 Labs: Abnormal Lab Results - Last 24 Hours (Table) 02/22/22 02/22/22 Range/Units 06:07 06:07 WBC 3.58 L (4.50-10.00) X 10*3/uL RBC 3.63 L (4.40-5.60) X 10*6/uL Hgb 10.6 L (13.0-17.0) g/dL Hct 33.8 L (39.6-50.0) % MCHC 31.4 L (32.0-37.0) g/dL RDW 14.9 H (11.5-14.5) % MPV 9.1 L (9.5-12.2) fL Neutrophils # 1.40 L (1.80-7.70) X 10*3/uL Monocytes # 1.12 H (0.20-1.00) X 10*3/uL Calcium 7.7 L (8.7-10.3) mg/dL Microbiology - Last 24 Hours (Table) 02/21/22 04:15 Blood Culture - Preliminary Blood No Growth after 24 hours 02/21/22 04:07 Blood Culture - Preliminary Blood No Growth after 24 hours Assessment and Plan Assessment: Symptoms * Pain - score 7/10 abdominal pain, Continue fentanyl patch, Tylenol, Dilaudid, morphine. * Fatigue - Yes * SOB - No, on room air * Insomnia - No * N/V - Yes, Continue Zofran and Compazine * Anxiety - No * Depression - No * Confusion - No * Agitation - No * Hallucinations - No * Appetite/weight loss - Unable to tolerate oral diet 2/2 N&V. * Dysphagia - No * Constipation - Yes, LBM today "small" * Incontinence - No * Itch - No * Cough - No Plan: Summary/Goals - The patient appears more comfortable today. He reports that his pain is well controlled with his current pain regimen. He also reports that his nausea is much better. He has not vomited or had dry heaves today. His last BM was this morning and it was more solid than yesterday. He was wondering why he was placed on a regular diet when so nauseated yesterday. Diet changed to full liquid. He is waiting on an abdominal ultrasound to assess the possibility of having another paracentesis before discharge. His plan is to follow up with Dr. Mitchell on Sunday regarding a clinical trial. He is waiting for his to come visit. Code status reviewed in detail. Patient wishes to remain a full code at this time. Advanced Directives - None on file Code Status - Full Code Thank you for this consultation Urszula Cabezas [facility] Palliative Care [employer] [phone] Email: [email or web address]
--- NOTE | 2022-02-22 12:42 | P.PN ---
Subjective Progress Note Date: 02/22/22 CHIEF COMPLAINT: Abdominal pain HISTORY OF PRESENT ILLNESS: Patient with a known history of metastatic pa ncreatic cancer. Patient reports his pain is better controlled. He denies any nausea or vomiting. He is having bowel movements and flatus. Oral intake still remains decreased. Afebrile. WBC is 3.58 Hgb is 10.6 platelets Na 219 sodium is 138 potassium 3.5 creatinine 0.8 magnesium 1.8. Patient has been seen by palliative care and oncology service PHYSICAL EXAM: VITAL SIGNS: Reviewed. GENERAL: Well-developed in no acute distress. HEENT: No sclera icterus. Extraocular movements grossly intact. Moist buccal mucosa. Head is atraumatic, normocephalic. ABDOMEN: Soft. Distended. Less tender NEUROLOGIC: Alert and oriented. Cranial nerves II through XII grossly intact. ASSESSMENT: 1. Abdominal pain and abdominal distention 2. History of pancreatic cancer with cytology from paracentesis in January positive for metastatic adenocarcinoma 3. Ileus 4. Hyponatremia resolved PLAN: -Palliative care service downgraded diet to full liquids -Awaiting oncology recommendations regarding possible paracentesis during this admission -Continue conservative management -No surgical intervention planned Physician Restaurant Line Cook note has been reviewed by physician. Signing provider agrees with the documented findings, assessment, and plan of care. Objective - Vital Signs Vital signs: Vital Signs Temp 97.9 F 02/22/22 12:18 Pulse 68 02/22/22 12:18 Resp 17 02/22/22 12:18 BP 107/69 02/22/22 12:18 Pulse Ox 98 02/22/22 12:18 FiO2 Intake & Output 02/21/22 02/22/22 02/22/22 18:59 06:59 18:59 Weight 59.421 kg Other: # Voids 4 2 # Bowel Movements 3 0 - Labs CBC & Chem 7: 02/22/22 06:07 02/22/22 06:07 Labs: Abnormal Lab Results - Last 24 Hours (Table) 02/22/22 02/22/22 Range/Units 06:07 06:07 WBC 3.58 L (4.50-10.00) X 10*3/uL RBC 3.63 L (4.40-5.60) X 10*6/uL Hgb 10.6 L (13.0-17.0) g/dL Hct 33.8 L (39.6-50.0) % MCHC 31.4 L (32.0-37.0) g/dL RDW 14.9 H (11.5-14.5) % MPV 9.1 L (9.5-12.2) fL Neutrophils # 1.40 L (1.80-7.70) X 10*3/uL Monocytes # 1.12 H (0.20-1.00) X 10*3/uL Calcium 7.7 L (8.7-10.3) mg/dL Microbiology - Last 24 Hours (Table) 02/21/22 04:15 Blood Culture - Preliminary Blood No Growth after 24 hours 02/21/22 04:07 Blood Culture - Preliminary Blood No Growth after 24 hours
[2022-02-22] MEDS ORDERED: SENNOSIDES-DOCUSATE SODIUM 1 EACH TAB PO PRN (17:00)
--- NOTE | 2022-02-22 17:05 | P.PN ---
Subjective Progress Note Date: 02/22/22 H&P Date: 02/21/22 Supplies and 67-year-old gentleman with a past medical history significant for CAD, RI, cardiac stents, prior nicotine dependence, hyperlipidemia and pancreatic cancer, presented to the ER with upper abdominal pain worsening over the last 3 weeks, radiating to his back, accompanied by persistent nausea ,vomiting-bile, decreased oral intake. Last bowel movement yesterday, nonbloody /liquidy.Reports last he had his second paracentesis with 6 L of yello wish fluid drained. Cytology from initial paracentesis in January 2022 reported positive for metastatic adenocarcinoma.Patient follows with oncologist, . Abdomen/pelvis CT reveals a significant increased amount of abdominal ascites fluid, dilated small bowel loops that could be ileus or partial mechanical obstruction. No evidence of free air. NPO,General surgery and oncology consults in place. Receiving IV fluids and IV antibiotics of Zosyn. Chemotherapy currently on hold .Patient states he is scheduled to participate in a clinical trial at [facility] in [place] with Dr. Brewster. Denies chest pain, palpitations or shortness of breath. Denies cough congestion chills or fever. Afebrile, WBC 3.6, hemoglobin 13.6, platelets 206, neutrophils 64, INR 1.1, sodium 129, potassium 4.1, bicarb 25, BUN 21, creatinine 0.78, lactic acid 2.5 decreased to 1.0 with IV fluid hydration, calcium 8.4, T bili 0.8, AST 0.8, ALT 17, alk phos elevated to 26, total protein 5.5 albumin 3.0 elevated CRP 5.5, amylase 35, lipase 35, UA negative. 02/22/2022 pain controlled, reports 2 diarrhea episodes yesterday. Maintain IV fluid hydration. Reports nausea significantly better with no emesis. States he is rinsing and spitting out only, not eating. Afebrile. Evaluated by both palliative care and oncology services with recommendations noted and appreciated. Objective - Vital Signs Vital signs: Vital Signs Temp 97.9 F 02/22/22 12:18 Pulse 68 02/22/22 12:18 Resp 17 02/22/22 12:18 BP 107/69 02/22/22 12:18 Pulse Ox 98 02/22/22 12:18 FiO2 Intake & Output 02/21/22 02/22/22 02/22/22 18:59 06:59 18:59 Weight 59.421 kg Other: # Voids 4 2 6 # Bowel Movements 3 0 3 - Exam PHYSICAL EXAMINATION: GENERAL: Alert and oriented 3, lying in the bed, no acute distress. HEENT: Atraumatic, Normocephalic. Oral mucosa dry. NECK: Supple, no JVD. CHEST EXAMINATION: unlabored ,lung michael clear to auscultation CARDIAC: Normal S1, S2 with no gallops. No murmurs ABDOMEN: Soft, distended, mild diffuse tenderness, positive ascites. Hypoactive bowel sounds. No guarding, no rigidity Extremities: reveal no edema. No clubbing or cyanosis Neurological: cranial nerves 2 through 12 grossly intact No focal deficits. Skin: warm and dry, No rash noted - Labs CBC & Chem 7: 02/22/22 06:07 02/22/22 06:07 Labs: Abnormal Lab Results - Last 24 Hours (Table) 02/22/22 02/22/22 Range/Units 06:07 06:07 WBC 3.58 L (4.50-10.00) X 10*3/uL RBC 3.63 L (4.40-5.60) X 10*6/uL Hgb 10.6 L (13.0-17.0) g/dL Hct 33.8 L (39.6-50.0) % MCHC 31.4 L (32.0-37.0) g/dL RDW 14.9 H (11.5-14.5) % MPV 9.1 L (9.5-12.2) fL Neutrophils # 1.40 L (1.80-7.70) X 10*3/uL Monocytes # 1.12 H (0.20-1.00) X 10*3/uL Calcium 7.7 L (8.7-10.3) mg/dL Microbiology - Last 24 Hours (Table) 02/21/22 04:15 Blood Culture - Preliminary Blood No Growth after 24 hours 02/21/22 04:07 Blood Culture - Preliminary Blood No Growth after 24 hours Assessment and Plan Assessment: Abdominal pain, CT reporting possible ileus, possible bowel obstruction Dehydration secondary to the above Leukopenia Lactic acidosis, resolved with IV fluid hydration Hyponatremia History of pancreatic cancer, metastatic adenocarcinoma, diagnosed January 2022 CAD with history of stenting Prior history of smoking Osteoarthritis Moderate protein calorie malnutrition, BMI 19.9 Plan: Continue on current medication regime ,monitoring and symptomatic treatment. IV fluid hydration, antibiotics. Following closely with both Oncology, palliative care; conservative care as per general surgery. Abdominal ultrasound ordered/ Potential therapeutic paracentesis. Prognosis guarded given multiple complex medical issues. The impression and plan of care has been dictated as directed. : I performed a history and examination of this patient, discussed the same with the dictator. I agree with the dictator's note ,documented as a scribe. Any additional findings or plans will be noted.
[2022-02-22] MEDS: SENNOSIDES-DOCUSATE SODIUM 1 EACH TAB PO SCH (18:04)
--- NOTE | 2022-02-22 18:27 | P.PN ---
Subjective Progress Note Date: 02/22/22 Principal diagnosis: Pancreatic carcinoma, intractable abdominal pain In follow-up today patient states improvement in his abdominal discomfort after bowel movement. He does feel distended and would like to be evaluated for a paracentesis. Denies fevers, cough, bleeding. He was trying to consume a regular diet but, that causes stomach ache Objective - Vital Signs Vital signs: Vital Signs Temp 97.9 F 02/22/22 12:18 Pulse 68 02/22/22 12:18 Resp 17 02/22/22 12:18 BP 107/69 02/22/22 12:18 Pulse Ox 98 02/22/22 12:18 FiO2 Intake & Output 02/21/22 02/22/22 02/22/22 18:59 06:59 18:59 Weight 59.421 kg Other: # Voids 4 2 # Bowel Movements 3 0 - Constitutional General appearance: Present: average body habitus, cooperative, no acute distress - EENT Eyes: Present: anicteric sclerae, EOMI ENT: Present: hearing grossly normal - Respiratory Details: Respirations even and unlabored at rest - Gastrointestinal Gastrointestinal Comment(s): Distant bowel sounds General gastrointestinal: Present: distended, soft - Integumentary Integumentary: Present: normal - Neurologic Neurologic: Present: CNII-XII intact - Musculoskeletal Musculoskeletal: Present: strength equal bilaterally - Psychiatric Psychiatric: Present: A&O x's 3, appropriate affect, intact judgment & insight - Labs CBC & Chem 7: 02/22/22 06:07 02/22/22 06:07 Labs: Abnormal Lab Results - Last 24 Hours (Table) 02/22/22 02/22/22 Range/Units 06:07 06:07 WBC 3.58 L (4.50-10.00) X 10*3/uL RBC 3.63 L (4.40-5.60) X 10*6/uL Hgb 10.6 L (13.0-17.0) g/dL Hct 33.8 L (39.6-50.0) % MCHC 31.4 L (32.0-37.0) g/dL RDW 14.9 H (11.5-14.5) % MPV 9.1 L (9.5-12.2) fL Neutrophils # 1.40 L (1.80-7.70) X 10*3/uL Monocytes # 1.12 H (0.20-1.00) X 10*3/uL Calcium 7.7 L (8.7-10.3) mg/dL Microbiology - Last 24 Hours (Table) 02/21/22 04:15 Blood Culture - Preliminary Blood No Growth after 24 hours 02/21/22 04:07 Blood Culture - Preliminary Blood No Growth after 24 hours Assessment and Plan (1) Pancreatic adenocarcinoma Current Visit: Yes Status: Chronic Priority: Medium Code(s): C25.9 - MALIGNANT NEOPLASM OF PANCREAS, UNSPECIFIED SNOMED Code(s): 441014358 Plan: Abdominal pain and distention -CT showed increased ascites, dilated bowel questionable ileus. Evaluated by surgeon, conservative management. Patient did have several bowel movements in the afternoon. --He was started on a regular diet. He states food on a regular diet little too much for his stomach. He has asked his to bring him in some softer foods. Encouraged patient to consume softer foods/full liquids. Abdominal distention -Recurrent malignant ascites-Positive cytology in January -6.8 L taken off last week -Orders placed for IR To see patient and US to assess for possible paracentesis. Pancreatic adenocarcinoma -Status post 2 cycles of 5-FU and onyvide, most recent treatment 02/07. Based on patient's symptoms, recurrent malignant ascites, patient is most likely ex periencing progression of disease, this was discussed with him previously. This is why the patient was referred to Dr. Brewster for clinical trial. Patient has seen Dr. Brewster and spoke to his nurse. There is a follow-up for next Sunday. This was reviewed with the patient. He verbalized understanding.
[2022-02-22] MEDS: PROCHLORPERAZINE INJ 10 MG/2 ML VIAL IVP PRN (21:50)
[2022-02-23] MEDS: SODIUM CHLORIDE 0.9% 1,000 ML IV SCH ×4 (00:06→14:08)
[2022-02-23] MEDS: PIPERACILLIN-TAZOBACTAM 3.375 GM in SODIUM CHLORIDE 0.9% 100 ML IVPB SCH ×2 (00:46→08:29)
[2022-02-23] MEDS: HYDROmorphone 0.5 MG/0.5 ML SYRINGE IVP PRN ×3 (04:56→13:18)
[2022-02-23] MEDS: PANTOPRAZOLE 40 MG/10 ML VIAL IV SCH (08:28)
[2022-02-23] MEDS: SENNOSIDES-DOCUSATE SODIUM 1 EACH TAB PO SCH (08:28)
--- NOTE | 2022-02-23 11:19 | P.PN ---
Subjective Progress Note Date: 02/23/22 Principal diagnosis: Prostate cancer The patient is a 67-year-old male with a past medical history significant for coronary artery disease, hyperlipidemia, VA, and pancreatic cancer. He presented to the emergency department on 02/20/22 with complaints of abdominal pain, nausea, and vomiting. He states that he usually has mild pain however for the past 3 weeks pain has increased. Pain is mostly in the upper abdomen with radiation to the back. He follows with Dr. Moffett for his pancreatic cancer in his chemotherapy is currently on hold. Abdomen/pelvis CT without contrast reveals a significant increased amount of abdominal ascites fluid compared to previous exam, and dilated small bowel loops that could be ileus or partial mechanical obstruction. No evidence of free air. Patient has required 2 paracentesis. His last paracentesis was on last week and had 6.1 L removed. Surgical service consulted in regards to patient's abdominal pain with ileus versus partial small bowel obstruction. No surgical intervention planned. Cytology from paracentesis in January positive for metastatic adenocarcinoma. 02/21 The patient was resting in bed. Information provided regarding palliative care philosophies and services. The patient states that he understands that the cytology report from the paracentesis fluid showed metastatic adenocarcinoma. He spoke to oncology [employer] this morning, but is unsure of what the plan is. He only knows that his chemotherapy is on hold for now. He stated that Dr. Moffett has recently increased his Fentanyl patch dosage from 25 to 50 mcgs. He states his pain is managed well with his current regimen. He states the pain gets worse as the ascites gets larger. He also sufferers from nausea and dry heaving. He has been unable to eat or drink anything. Zofran gives him some relief, but it does not last very long. Compazine added. He states that his goal at this point is for prolonged survival and to continue aggressive lucretia tment. He is waiting to talk to Dr. Moffett for a treatment plan. 02/22 The patient appears more comfortable today. He reports that his pain is well controlled with his current pain regimen. He also reports that his nausea is much better. He has not vomited or had dry heaves today. His last BM was this morning and it was more solid than yesterday. He was wondering why he was placed on a regular diet when so nauseated yesterday. Diet changed to full liquid. He is waiting on an abdominal ultrasound to assess the possibility of having another paracentesis before discharge. His plan is to follow up with Dr. Mitchell on Sunday regarding a clinical trial. He is waiting for his to come visit. Code status reviewed in detail. Patient wishes to remain a full code at this time. Objective - Vital Signs Vital signs: Vital Signs Temp 98 F 02/23/22 06:52 Pulse 75 02/23/22 06:52 Resp 16 02/23/22 06:52 BP 123/77 02/23/22 06:52 Pulse Ox 98 02/23/22 06:52 FiO2 Intake & Output 02/22/22 02/23/22 02/23/22 18:59 06:59 18:59 Intake Total 590 Balance 590 Intake: Oral 590 Other: # Voids 6 2 # Bowel Movements 3 - Exam General: Well developed, well nourished. Chronically ill appearing HEENT: Head is atraumatic, normocephalic. Mucus membranes dry. Lungs: Respirations even and nonlabored. On RA Abdomen/GI: Soft, distended, and TTP. : No suprapubic tenderness. Musculoskeletal/ Extremities: TOLENTINO, no joint deformity or swelling. No gross atrophy. + generalized weakness Skin: Warm and dry Neurologic: Awake, alert and oriented times 3. CN II-XII grossly intact. No focal deficits. Psychiatric: Appropriate mood and affect. - Labs CBC & Chem 7: 02/22/22 06:07 02/22/22 06:07 Labs: Microbiology - Last 24 Hours (Table) 02/21/22 04:07 Blood Culture - Preliminary Blood No Growth after 48 hours 02/21/22 04:15 Blood Culture - Preliminary Blood No Growth after 48 hours Assessment and Plan Assessment: Symptoms * Pain - score 7/10 abdominal pain, Continue fentanyl patch, Tylenol, Dilaudid, morphine. * Fatigue - Yes * SOB - No, on room air * Insomnia - No * N/V - Yes, Continue Zofran and Compazine * Anxiety - No * Depression - No * Confusion - No * Agitation - No * Hallucinations - No * Appetite/weight loss - Encourage oral intake/regular diet * Dysphagia - No * Constipation - Yes, LBM 02/22 X 3 * Incontinence - No * Itch - No * Cough - No Plan: Summary/Goals - The patient states that his pain is well managed. His nausea is less frequent and he has no longer vomiting. He had 3 bowel movements yesterday. He has been able to tolerate a full liquid diet. He requests advancement of his diet so that he has more options to choose from. Precipitant placed for IR to evaluate patient for possible paracentesis today. The patient is hoping to be discharged today following his paracentesis. He will be following up with Dr. Brewster for a clinical trial next Sunday. Code Status - Full Code Thank you for this consultation Urszula Cabezas [facility] Palliative Care [facility] [phone] Email: [email or web address] Time with Patient: Less than 30
[2022-02-23 12:40] VITALS: TEMP 97.4
[2022-02-23] MEDS ORDERED: POTASSIUM CHLORIDE ER 20 MEQ TAB.ER PO STA (14:30)
--- NOTE | 2022-02-23 14:32 | P.PN ---
Subjective Progress Note Date: 02/23/22 CHIEF COMPLAINT: Abdominal pain HISTORY OF PRESENT ILLNESS: Patient with a known history of metastatic pa ncreatic cancer. Patient complains of abdominal pain. He reports that he feels that his abdomen is becoming more distended and filled with fluid. He is scheduled for paracentesis today. He is having bowel movements. Denies any nausea or vomiting. Currently on a full liquid diet. WBC is 3.58 hgb 10.6 platelets 219 sodium improved to 138 potassium 3.5 creatinine 0.8 magnesium 1.8 PHYSICAL EXAM: VITAL SIGNS: Reviewed. GENERAL: Well-developed in no acute distress. HEENT: No sclera icterus. Extraocular movements grossly intact. Moist buccal mucosa. Head is atraumatic, normocephalic. ABDOMEN: Soft. Distended. Less tender NEUROLOGIC: Alert and oriented. Cranial nerves II through XII grossly intact. ASSESSMENT: 1. Abdominal pain and abdominal distention 2. History of pancreatic cancer with cytology from paracentesis in January positive for metastatic adenocarcinoma 3. Ileus 4. Hyponatremia resolved PLAN: -Patient scheduled for paracentesis today -Continue conservative management -No surgical intervention planned -Palliative care advanced diet regular Physician Auto Wheel Alignment Specialist note has been reviewed by physician. Signing provider agrees with the documented findings, assessment, and plan of care. Objective - Vital Signs Vital signs: Vital Signs Temp 97.4 F L 02/23/22 12:36 Pulse 76 02/23/22 12:36 Resp 16 02/23/22 12:36 BP 127/81 02/23/22 12:36 Pulse Ox 98 02/23/22 12:36 FiO2 Intake & Output 02/22/22 02/23/22 02/23/22 18:59 06:59 18:59 Intake Total 590 Balance 590 Intake: Oral 590 Other: # Voids 6 2 # Bowel Movements 3 - Labs CBC & Chem 7: 02/22/22 06:07 02/22/22 06:07 Labs: Microbiology - Last 24 Hours (Table) 02/21/22 04:07 Blood Culture - Preliminary Blood No Growth after 48 hours 02/21/22 04:15 Blood Culture - Preliminary Blood No Growth after 48 hours
[2022-02-23 17:17] VITALS: BP 123/77; RESP 18
[2022-02-23 17:21] VITALS: PULSE 82
--- NOTE | 2022-02-23 18:11 | P.PN ---
Subjective Progress Note Date: 02/23/22 Principal diagnosis: Pancreatic carcinoma, intractable abdominal pain In follow-up today patient states worsening abdominal distension and discomfort today. Told pt to order food that he wants and can tolerate, he reports he was not able to do so. Paracentesis ordered with plans for today or tomorrow. Denies fevers, cough, bleeding, vomiting. He had BM yesterday Objective - Vital Signs Vital signs: Vital Signs Temp 97.4 F L 02/23/22 12:36 Pulse 76 02/23/22 12:36 Resp 16 02/23/22 12:36 BP 127/81 02/23/22 12:36 Pulse Ox 98 02/23/22 12:36 FiO2 Intake & Output 02/22/22 02/23/22 02/23/22 18:59 06:59 18:59 Intake Total 590 Balance 590 Intake: Oral 590 Other: # Voids 6 2 # Bowel Movements 3 - Constitutional General appearance: Present: cooperative, no acute distress, thin - EENT Eyes: Present: anicteric sclerae, EOMI ENT: Present: hearing grossly normal - Respiratory Details: breathing is even and unlabored - Cardiovascular Details: skin warm and dry - Gastrointestinal General gastrointestinal: Present: distended - Integumentary Integumentary: Present: normal - Neurologic Neurologic Comment(s): grossly intact Neurologic: Present: CNII-XII intact - Musculoskeletal Musculoskeletal: Present: strength equal bilaterally - Psychiatric Psychiatric Comment(s): pt standing and leaning over chair due to discomfort in abd Psychiatric: Present: A&O x's 3, appropriate affect, intact judgment & insight - Labs CBC & Chem 7: 02/22/22 06:07 02/22/22 06:07 Labs: Microbiology - Last 24 Hours (Table) 02/21/22 04:07 Blood Culture - Preliminary Blood No Growth after 48 hours 02/21/22 04:15 Blood Culture - Preliminary Blood No Growth after 48 hours Assessment and Plan (1) Pancreatic adenocarcinoma Current Visit: Yes Status: Chronic Priority: Medium Code(s): C25.9 - MAL IGNANT NEOPLASM OF PANCREAS, UNSPECIFIED SNOMED Code(s): 133217073 Plan: Abdominal pain and distention -CT showed increased ascites, dilated bowel questionable ileus. Evaluated by surgeon, conservative management. Patient did have several bowel movements with improvement in symptoms. -Encouraged patient to consume softer foods/full liquids and advance diet as tolerated. He reports that he is not able to order the food that he wants Abdominal distention -Recurrent malignant ascites-Positive cytology in January -6.8 L taken off last week -Orders placed for IR To see patient and US to assess for possible paracentesis. Pending paracentesis Pancreatic adenocarcinoma -Status post 2 cycles of 5-FU and onyvide, most recent treatment 02/07. Based on patient's symptoms, recurrent malignant ascites, patient is most likely experiencing progression of disease, this was discussed with him previously and discussed today with and sister at bedside. This is why the patient was referred to Dr. Brewster for clinical trial. Spoke with Dr. Brewster ESHA today and she states there is a f/u with him 02/27 11AM to discuss possible clinical trial. This was reviewed with the patient and family today. Per Dr. Brewster request CD of imaging and notes. Material Expediter getting CD and will give to pt when done. MA from Dr. Moffett's ofc will fax notes. All questions answered to pt and family satisfaction F/U with Dr. Moffett on 03/09
--- NOTE | 2022-02-24 09:48 | US ---
Ultrasound-guided paracentesis. DATE OF EXAM: 02/24/2022 CLINICAL HISTORY: Ascites The procedure was discussed with the patient. The risks, complications, benefits, and alternatives we re discussed and any questions were answered. Informed consent was obtained. The patient was placed s upine on the ultrasound table and prepped and draped in the usual sterile fashion. All elements of maximal barrier technique were utilized. Under ultrasound guidance, access into the right lower quadrant was obtained, via the paracentesis catheter system and direct ultrasound guidanc e. Approximately 1.3 liters of straw-colored fluid was removed. The patient was stable throughout the pr ocedure and remained stable upon discharge from Department of Radiology. IMPRESSION: Successful paracentesis under ultrasound guidance.
--- NOTE | 2022-02-24 13:23 | P.DS ---
Providers Date of admission: 02/21/22 12:11 Expected date of discharge: 02/23/22 Attending physician: Garrett Bolton Consults: 02/20/22 23:21 Consult Physician Routine Consulting Provider: Noah aKur Consult Reason/Comments: Intractable abdominal pain. Ileus versus bowel obstruction Do you want consulting provider notified?: Yes 02/21/22 00:29 Consult Physician Routine Consulting Provider: Driss Moffett Consult Reason/Comments: Your patient, pancreatic cancer Do you want consulting provider notified?: Yes 02/21/22 10:10 Consult to Palliative Care Routine Consulting Provider: Urszula Cabezas Consult Reason/Comments: pancreatic cancer Do you want consulting provider notified?: Yes Primary care physician: Garrett Bolton [facility] Course: Final Diagnoses: Abdominal pain, CT reporting increased ascites ,possible ileus-symptoms improved after bowel movements,conservative management as per general surgery. Recurrent malignant ascites, paracentesis pending. Dehydration secondary to the above Leukopenia Lactic acidosis, resolved with IV fluid hydration Hyponatremia History of pancreatic cancer, metastatic adenocarcinoma, diagnosed January 2022. CAD with history of stenting Prior history of smoking Osteoarthritis Moderate protein calorie malnutrition, BMI 19.9 This is a 67-year-old gentleman with a past medical history significant for CAD, [place], cardiac stents, prior nicotine dependence, hyperlipidemia and pancreatic cancer, presented to the ER with upper abdominal pain worsening over the last 3 weeks, radiating to his back, accompanied by persistent nausea ,vomiting-bile, decreased oral intake. Last bowel movement yesterday, nonbloody /liquidy.Reports last he had his second paracentesis with 6 L of yellowish fluid drained. Cytology from initial paracentesis in January 2022 reported positive for metastatic adenocarcinoma.Patient follows with oncologist, . Abdomen/pelvis CT reveals a significant increased amount of abdominal ascites fluid, dilated small bowel loops that could be ileus or partial mechanical obstruction. No evidence of free air. NPO,General surgery and oncology consults in place. Receiving IV fluids and IV antibiotics of Zosyn. Chemotherapy currently on hold .Patient states he is scheduled to participate in a clinical trial at [facility] with Dr. Brewster. Denies chest pain, palpitations or shortness of breath. Denies cough congestion chills or fever. Afebrile, WBC 3.6, hemoglobin 13.6, platelets 206, neutrophils 64, INR 1.1, sodium 129, potassium 4.1, bicarb 25, BUN 21, creatinine 0.78, lactic acid 2.5 decreased to 1.0 with IV fluid hydration, calcium 8.4, T bili 0.8, AST 0.8, ALT 17, alk phos elevated to 26, total protein 5.5 albumin 3.0 elevated CRP 5.5, amylase 35, lipase 35, UA negative. 02/22/2022 pain controlled, reports 2 diarrhea episodes yesterday. Maintain IV fluid hydration. Reports nausea significantly better with no emesis. States he is rinsing and spitting out only, not eating. Afebrile. Evaluated by both palliative care and oncology services with recommendations noted and appreciated. Scheduled for paracentesis today. Passing flatus, positive bowel movement yesterday. Reports tolerated diet intake last night with no nausea or vomiting. Patient requesting to go home. Patient will be discharged home later today in a stable condition with guarded prognosis ,after paracentesis pending final DC recommendations and clearance per oncology. The impression and plan of care has been dictated as directed. : I performed a history and examination of this patient, discussed the same with the dictator. I agree with the dictator's note ,documented as a scribe. Any additional findings or plans will be noted. Patient Condition at Discharge: Stable Plan - Discharge Summary Discharge Rx Participant: No New Discharge Prescriptions: No Action Nitroglycerin Sl Tabs [Nitrostat] 0.4 mg SUBLINGUAL Q5M PRN #20 tab PRN Reason: Chest Pain traMADol HCL [Ultram] 50 mg PO Q6H PRN PRN Reason: Pain Aspirin [Adult Low Dose Aspirin EC] 81 mg PO Q48H HYDROcodone/APAP 10-325MG [Berne 10-325] 1 tab PO Q6HR PRN PRN Reason: Pain Gabapentin [Neurontin] 300 mg PO BID Sennosides/Docusate Sodium [Senna Plus 8.6-50 mg Tablet] 1 tab PO DAILY Atorvastatin [Lipitor] 40 mg PO HS Sennosides/Docusate Sodium [Senna Plus 8.6-50 mg Tablet] 1 tab PO DAILY PRN PRN Reason: Constipation fentaNYL 25MCG/HR PATCH [Duragesic 25MCG/HR] 2 patch TRANSDERM Q72H Discharge Medication List Nitroglycerin Sl Tabs [Nitrostat] 0.4 mg SUBLINGUAL Q5M PRN #20 tab 03/06/16 [Rx] traMADol HCL [Ultram] 50 mg PO Q6H PRN 03/18/20 [History] Atorvastatin [Lipitor] 40 mg PO HS 02/14/21 [History] Aspirin [Adult Low Dose Aspirin EC] 81 mg PO Q48H 01/24/22 [History] Sennosides/Docusate Sodium [Senna Plus 8.6-50 mg Tablet] 1 tab PO DAILY PRN 01/24/22 [History] Gabapentin [Neurontin] 300 mg PO BID 02/20/22 [History] HYDROcodone/APAP 10-325MG [Berne 10-325] 1 tab PO Q6HR PRN 02/20/22 [History] Sennosides/Docusate Sodium [Senna Plus 8.6-50 mg Tablet] 1 tab PO DAILY 02/20/22 [History] fentaNYL 25MCG/HR PATCH [Duragesic 25MCG/HR] 2 patch TRANSDERM Q72H 02/20/22 [History] Follow up Appointment(s)/Referral(s): Garrett Bolton DO [Primary Care Provider] - 2 Weeks Patient Instructions/Handouts: Pancreatic Cancer (DC), Ascites (DC), Paracentesis (DC) Activity/Diet/Wound Care/Special Instructions: Pt has order for his paracentsis appt next Sunday and disc imaging. Discharge Disposition: HOME SELF-CARE
== END 2022-02-23 18:46 | disposition home or self-care (01) | DRG 389 ==
LOC: EC 16:46 → 5NMEDONC 23:21 → OBSVTOIN 02-21 12:11
PROVIDERS: ADMIT Family Medicine; ATTEND Family Medicine
PROC: 0D9670Z Drainage of Stomach with Drainage Device, Via Natural or Artificial Opening (ICD-10-PCS; principal; 2022-02-20)
PROC: 0W9G3ZZ Drainage of Peritoneal Cavity, Percutaneous Approach (ICD-10-PCS; 2022-02-23)
DX: K56.7 Ileus, unspecified (principal); C25.0 Malignant neoplasm of head of pancreas; R18.0 Malignant ascites; E44.0 Moderate protein-calorie malnutrition; E87.20 Acidosis, unspecified; E87.1 Hypo-osmolality and hyponatremia; C78.6 Secondary malignant neoplasm of retroperitoneum and peritoneum; Z68.1 Body mass index [BMI] 19.9 or less, adult; K83.8 Other specified diseases of biliary tract; I95.9 Hypotension, unspecified; E86.0 Dehydration; I25.10 Atherosclerotic heart disease of native coronary artery without angina pectoris; D72.819 Decreased white blood cell count, unspecified; F10.90 Alcohol use, unspecified, uncomplicated; M19.90 Unspecified osteoarthritis, unspecified site; E78.5 Hyperlipidemia, unspecified; N40.0 Benign prostatic hyperplasia without lower urinary tract symptoms; Z92.21 Personal history of antineoplastic chemotherapy; Z79.899 Other long term (current) drug therapy; Z79.82 Long term (current) use of aspirin; Z79.891 Long term (current) use of opiate analgesic; I25.2 Old myocardial infarction; Z95.5 Presence of coronary angioplasty implant and graft; Z87.891 Personal history of nicotine dependence; Z85.46 Personal history of malignant neoplasm of prostate
CPT/HCPCS: 36415; 49083; 74176; 80048; 80053; 81001; 82150; 83605; 83690; 83735; 85025; 85610; 85730; 86140; 87040; 96361; 96374; 99285

== ENCOUNTER → 2022-02-28 | Outpatient (CLI) | payer MEDICARE ==
[2022-02-28 10:14] LABS: African American GFR (CKD) >90 (>60 ml/min/1.73 sqM); Blood Urea Nitrogen 25 mg/dL (9-20); Non-African American GFR(CKD) >90 (>60 ml/min/1.73 sqM)
--- NOTE | 2022-02-28 12:00 | CT ---
EXAMINATION TYPE: CT ChestAbdPelvis w con CT DLP: 742.4 mGycm, Automated exposure control for dose reduction was used. DATE OF EXAM: 02/28/2022 11:43 AM COMPARISON: CT abdomen and pelvis 02/20/2022, CT chest abdomen pelvis 01/11/2022. CLINICAL INDICATION:Male, 67 years old with history of C25.0 MALIGNANT NEOPLASM OF HEAD OF PANCREAS; PHH, pancreatic CA, f/u Technique: Multiple axial images of the chest, abdomen, and pelvis were obtained following the intrav enous administration of 70 mL Isovue-300. Oral contrast was administered. Two-dimensional coronal and sagittal reconstructions were obtained. Findings: CHEST: LUNGS/ PLEURA: Left lower lobe subsegmental atelectasis. No focal consolidation, pneumothorax, or ple ural effusion. No suspicious pulmonary nodule or mass. Mild emphysematous change. AIRWAY: Patent and unremarkable.. HEART: Size within normal limits. No pericardial effusion. Dense LAD coronary calcifications redemons trated. MEDIASTINUM: No gross evidence of adenopathy. VASCULATURE: Stable ascending aortic aneurysm measuring up to 4.1 cm. Aortic root is again atelectat ic measuring up to 3.8 cm. Mild atherosclerotic calcification of the aorta and its branches. Right an terior chest wall Mediport with tip terminating in the mid SVC. MUSCULOSKELETAL: No acute osseous abnormalities. No aggressive osseous lesion. SOFT TISSUES/LYMPH NODES: Unremarkable. LOWER NECK: No significant findings. ABDOMEN: ABDOMEN LIVER: Stable poorly defined 1.1 cm hypodense lesion within the left hepatic dome. No new suspicious lesions. The portal venous system is patent however there is severe narrowing at the portal confluenc e. GALLBLADDER AND BILE DUCTS: Redemonstration of pneumobilia. Gallbladder is likely collapsed with some air within it. Metallic biliary stent is stable. PANCREAS: Persistent main pancreatic ductal dilatation measuring up to 7 mm. No discrete recurrent ma ss clot identified. Assessment is limited due to surrounding ascites. SPLEEN: Unremarkable. ADRENAL GLANDS: Unremarkable. KIDNEYS AND URETERS: No evidence of hydronephrosis or renal calculus. Stable 2.8 cm left lateral kidn ey cortical cyst. PELVIS BLADDER: Under distended, limiting evaluation. REPRODUCTIVE: Unremarkable. ABDOMEN & PELVIS STOMACH AND BOWEL: Stomach and duodenum are unremarkable. Persistent wall thickening of the sigmoid c olon. Some diverticular changes are present within the sigmoid colon. Enteric contrast reaches the mi d small bowel. No evidence of bowel obstruction. PERITONEUM: No evidence of pneumoperitoneum. Presacral edema. Large volume ascites. Previously questi oned soft tissue nodularity within the peritoneum is not well appreciated due to surrounding ascites. VASCULATURE: No evidence of aortic aneurysm. MUSCULOSKELETAL: No acute osseous abnormalities. No aggressive osseous lesion. Mild degenerative esquivel ges of the hips. Moderate degenerative disc disease at L4-L5. LYMPH NODES: No gross evidence for lymphadenopathy. SOFT TISSUE/ABDOMINAL WALL: Mild anasarca. IMPRESSION: 1. No evidence for metastatic disease within the chest. 2. Stable 4.1 cm ascending aortic aneurysm. 3. Large volume abdominal ascites seen. 4. No discrete recurrent pancreatic mass or adenopathy. 5. Similar persistent mid sigmoid wall thickening, again correlate with direct visualization. 6. Stable metallic biliary stent with similar pneumobilia and stable 1.1 cm vague hypodensity within the left hepatic dome. Stable main pancreatic ductal dilatation up to 7 mm.
== END | disposition home or self-care (01) ==
LOC: RADCTMAIN 09:30
PROVIDERS: ATTEND Internal Medicine Hematology & Oncology
DX: C25.0 Malignant neoplasm of head of pancreas (principal); I71.21 Aneurysm of the ascending aorta, without rupture; R18.8 Other ascites; K63.89 Other specified diseases of intestine; K86.89 Other specified diseases of pancreas; Z96.89 Presence of other specified functional implants
CPT/HCPCS: 82565; 84520; 71260; 74177; 36415; Q9967 ×2

== ENCOUNTER 2022-03-01 12:44 | Day surgery (SDC) | payer MEDICARE ==
[2022-03-01 13:23] LABS: Prothrombin Time 10.5 sec (9.0-12.0)
[2022-03-01 13:33] VITALS: RESP 16; TEMP 97.7
--- NOTE | 2022-03-01 14:36 | US ---
Ultrasound-guided paracentesis. DATE OF EXAM: 03/01/2022 CLINICAL HISTORY: Ascites The procedure was discussed with the patient. The risks, complications, benefits, and alternatives we re discussed and any questions were answered. Informed consent was obtained. The patient was placed s upine on the ultrasound table and prepped and draped in the usual sterile fashion. All elements of maximal barrier technique were utilized. Under ultrasound guidance, access into the right lower quadrant was obtained, via the paracentesis catheter system and direct ultrasound guidanc e. Approximately 2 liters of straw-colored fluid was removed. The patient was stable throughout the proc edure and remained stable upon discharge from Department of Radiology. IMPRESSION: Successful paracentesis under ultrasound guidance.
[2022-03-01 14:56] VITALS: BP 110/68; PULSE 75
== END 2022-03-01 14:55 | disposition home or self-care (01) ==
LOC: RADPROMAIN 12:44
PROVIDERS: ATTEND Internal Medicine Hematology & Oncology
DX: R18.8 Other ascites (principal)
CPT/HCPCS: 85610; 49083; J1642

== ENCOUNTER 2022-03-08 07:55 | Day surgery (SDC) | payer MEDICARE ==
[2022-03-08 08:33] VITALS: RESP 16; TEMP 94.7
[2022-03-08 09:57] VITALS: PULSE 83
[2022-03-08 10:07] VITALS: BP 102/70
--- NOTE | 2022-03-08 13:07 | US ---
EXAMINATION TYPE: US paracentesis abd w/image DATE OF EXAM: 03/08/2022 CLINICAL HISTORY: Ascites The procedure was discussed with the patient. The risks, complications, benefits, and alternatives we re discussed and any questions were answered. Informed consent was obtained. The patient was placed s upine on the ultrasound table and prepped and draped in the usual sterile fashion. All elements of maximal barrier technique were utilized. Ultrasound was used to yissel an appropriate s ite in the left lower quadrant. Access to the ascitic fluid was obtained with a paracentesis catheter . Approximately 5.6 liters of clear yellow fluid was removed. The patient was stable throughout the pro cedure and remained stable upon discharge from Department of Radiology. IMPRESSION: Successful therapeutic paracentesis under ultrasound guidance.
== END 2022-03-08 10:15 | disposition home or self-care (01) ==
LOC: RADPROMAIN 07:55
PROVIDERS: ATTEND Internal Medicine Hematology & Oncology
DX: R18.8 Other ascites (principal)
CPT/HCPCS: 49083